=== PATIENT | female | born 1945 | race African-American/Black ===

== ENCOUNTER 2017-07-08 17:05 | Inpatient (IN) | payer MEDICARE, BC ==
[2017-07-08 17:47] LABS: #Eosinphils 0.3 thou/uL (0.0-0.7); #Lymphocytes 1.1 thou/uL (1.20-3.40); #Monocytes 0.5 thou/uL (0.11-0.59); #Neutrophils 6.7 thou/uL (1.40-6.50); %Basophils 0.5 % (0.0-1.0); %Eosinophils 2.9 % (0.0-10.0); %Lymphocytes 12.5 % (21.0-51.0); %Monocytes 6.1 % (0.0-10.0); Hematocrit 27.3 % (36.0-47.0); Mean Platelet Volume 6.3 fL (7.4-10.4); Red Blood Cell (RBC) Count 3.26 mill/uL (4.20-5.40); White Blood Cell (WBC) Count 8.6 thou/uL (4.8-10.8)
--- NOTE | 2017-07-08 17:49 | RAD ---
RADIOGRAPH OF CHEST SINGLE VIEW: Date: 07/08/17 INDICATION: Chest pain. FINDINGS: There is no evidence of consolidation, effusion, or pneumothorax. Cardiac silhouette is enlarged. Th ere is mild elevation of right hemidiaphragm. IMPRESSION: 1. Enlarged cardiac silhouette. 2. No focal consolidation. POS: [facility]
[2017-07-08 18:08] LABS: ALT (SGPT) 10 U/L (8-55); AST (SGOT) 14 U/L (5-34); Alkaline Phosphatase 147 U/L (40-150); Anion Gap 16 mmol/L (10-20); BUN (Urea Nitrogen) 54 mg/dL (9.8-20.1); Bilirubin, Total 0.4 mg/dL (0.2-1.2); CK (CPK) 90 U/L (29-168); Calc. Creatinine Clearance 0 mL/min (70-130); Calcium 9.5 mg/dL (7.8-10.44); Carbon Dioxide 21 mmol/L (23-31); Chloride 109 mmol/L (98-107); Estimated GFR-MDRD 12; Globulin 3.8 g/dL (2.4-3.5); Protein, Total 7.3 g/dL (6.0-8.3)
[2017-07-08 18:13] LABS: Troponin I 0.012 ng/mL (< 0.028)
[2017-07-08] MEDS ORDERED: Dextrose 50% Abboject 50 ML SYRINGE ONE (18:14)
[2017-07-08] MEDS ORDERED: hydrALAZINE 20 MG/ML VIAL ONE (19:21)
[2017-07-08 21:40] LABS: Troponin I Less than 0.010 ng/mL (< 0.028)
[2017-07-08 22:08] VITALS: BMI 25.8
[2017-07-08 23:39] LABS: Troponin I Less than 0.010 ng/mL (< 0.028)
[2017-07-09] MEDS ORDERED: Ondansetron HCl/PF 4 MG/2 ML Vial IVP PRN (02:17)
[2017-07-09] MEDS ORDERED: Dextrose 5% in Water 1,000 ML IV PRN (02:17)
[2017-07-09] MEDS ORDERED: Nitroglycerin 0.4 MG TAB (25 Tab Bottle) PO PRN (02:17)
[2017-07-09] MEDS ORDERED: Dextrose 50% Abboject 50 ML SYRINGE SLOW IVP PRN (02:17)
[2017-07-09] MEDS ORDERED: HYDROcodone/Acetaminophen 5/325 mg Tablet PO PRN (02:17)
[2017-07-09] MEDS ORDERED: Acetaminophen 325 MG TAB PO PRN (02:17)
[2017-07-09] MEDS: Sodium Chloride 0.9% 1,000 ML IV SCH ×2 (03:31→21:13)
[2017-07-09 04:28] LABS: Bilirubin Negative (Negative); Blood, Urine Negative (Negative); Glucose, Urine (Dipstick) Negative (Negative); Ketone, Urine Negative (Negative); Nitrite Negative (Negative); Protein, Urine (Dipstick) 300 mg/dL (Neg-Trace); Urobilinogen 0.2 mg/dL (0.2-1.0)
[2017-07-09 04:31] LABS: Bacteria/HPF 1+ HPF (None Seen); Hyaline Casts/LPF 0-3 HYALINE CAST LPF (0-3 Hyaline); Squamous Epithelial 0-3 HPF (0-3)
[2017-07-09 04:52] LABS: RBC/HPF None Seen HPF (0-3)
[2017-07-09] MEDS: Levothyroxine Sodium 100 MCG TAB PO SCH (05:26)
[2017-07-09] MEDS: hydrALAZINE 20 MG/ML VIAL SLOW IVP PRN ×2 (05:30→11:42)
[2017-07-09 05:31] LABS: Anion Gap 14 mmol/L (10-20); BUN (Urea Nitrogen) 51 mg/dL (9.8-20.1); Calc. Creatinine Clearance 14 mL/min (70-130); Calcium 8.6 mg/dL (7.8-10.44); Carbon Dioxide 19 mmol/L (23-31); Chloride 113 mmol/L (98-107); Cholesterol 94 mg/dl (< 200 Desired); Estimated GFR-MDRD 13; LDL Cholesterol, Calculated 56 mg/dL
--- NOTE | 2017-07-09 06:28 | HP ---
CHIEF COMPLAINT: Chest pain. HISTORY OF PRESENT ILLNESS: This is a 71-year-old pleasant lady who was apparently in usual state o f health, had some right-sided chest pain intermittent for the last one day, this happened when the patient was sitting down and watching TV. The patient was concerned and she came into the hospital for further evaluation and treatment. This happened the previous day as well, but resolved by itsel f. Today, it did not resolve. The patient said that it radiated to the right side of the neck as w ell and she thought that she slept wrong and that causes the chest pain, but she was concerned and s he came into the hospital. She denies any nausea, vomiting, abdominal pain, fever, chills, shortnes s of breath. The patient says that the severity of the chest pain was 5/10 in intensity. It was ex acerbated by deep breaths, relieved by nothing. PAST MEDICAL HISTORY: Significant for type 2 diabetes, hypothyroidism, hypertension, asthma, CKD st age 6, history of cerebrovascular accident with some deficits, but the patient is pretty functional. The patient also has GERD and COPD. PAST SURGICAL HISTORY: Significant for right cataract surgery, right ankle surgery, tubal ligation. ALLERGIES: No known drug allergies. MEDICATIONS: Please see MAR. FAMILY HISTORY: Father with type 2 diabetes. Mother with lung cancer, and sister with type 2 diabe yaritza. SOCIAL HISTORY: Denies any tobacco, alcohol, or drug use. REVIEW OF SYSTEMS: Significant for chest pain, otherwise no fever, no chills, no headache, no appet ite, disease. No cough, no diarrhea, dysuria or polyuria. No memory or mood changes. No nec k pain. PHYSICAL EXAMINATION: VITAL SIGNS: The patient's blood pressure right now is 148/70, pulse is 77, respirations 18, and sa tting 99% on 2 liters. GENERAL: The patient is lying in bed, no apparent distress. HEENT: Atraumatic, normocephalic. Pupils equally round, react to light. Extraocular movements int act. Mucous membranes moist. NECK: No JVD. CHEST: Breath sounds heard. No rales or rhonchi. HEART: S1, S2. No murmurs or gallops. ABDOMEN: Soft. EXTREMITIES: No cyanosis, clubbing, or edema. Distal pulses present. NEUROLOGICAL: Alert, awake, oriented. No cranial deficits. No sensorimotor deficits. LABORATORY DATA: EKG normal sinus rhythm. Chest x-ray negative. WBC count is 8.6, hemoglobin is 8 .7, potassium is 4.1, creatinine is 4.43. Troponin is negative x2. ASSESSMENT AND PLAN: 1. Chest pain, rule out acute coronary syndrome, most probably chest wall pain. Troponins are nega tive so far. Because of the comorbid, we will do echocardiogram and stress test. We will follow e stress test and get Cardiology on board if needed. Meanwhile, we will continue aspirin and check cholesterol. 2. Acute renal failure on chronic kidney disease. Dr. Diop has been following the patient. We eduardo l consult him. Episode of hypoglycemia. We will try to optimize the glucose control, this hospital stay. The patient takes 20 of Levemir in the morning and 15 in the night. 3. Hypothyroidism. We will continue with thyroid medication. 4. Hypertension. We will continue home medications. 5. Gastroesophageal reflux disease, stable. 6. History of cerebrovascular accident, stable. I do SCDs for deep venous thrombosis prophylaxis. I will work with consultants in further caring for the patient.
[2017-07-09] MEDS: Mometasone/Formoterol 120 PUFF INHALER INH SCH ×2 (06:53→18:47)
[2017-07-09] MEDS: Amlodipine 10 MG TAB PO SCH (09:12)
[2017-07-09] MEDS: hydrALAZINE 25 MG TAB PO SCH ×4 (09:13→21:14)
--- NOTE | 2017-07-09 13:23 | PDOC.PN ---
- Subjective Encounter Start Date: 07/09/17 Encounter Start Time: 07:20 Pt seen for followup re: chest pain. Reports on and off R sided chest pain. Denies nausea or vomiting. - Objective MAR Reviewed: Yes Vital Signs & Weight: Vital Signs (12 hours) Temp Pulse Resp BP BP BP Pulse Ox 07/09/17 11:42 80 190/84 H 07/09/17 11:38 98.7 F 80 18 190/84 H 98 07/09/17 10:03 98.9 F 75 19 97 07/09/17 09:13 75 07/09/17 09:12 75 179/84 H 07/09/17 07:30 98.9 F 75 19 179/84 H 97 07/09/17 06:56 97 07/09/17 06:53 71 14 97 07/09/17 05:30 68 181/86 H 07/09/17 05:27 181/86 H 07/09/17 03:56 98.1 F 68 16 98 Weight Weight 155 lb 6.4 oz I&O: 07/08/17 07/09/17 07/10/17 06:59 06:59 06:59 Intake Total 360 Output Total 1050 Balance -690 Result Diagrams: 07/08/17 17:23 07/09/17 04:26 Additional Labs: Accuchecks 07/09/17 07/09/17 07/09/17 11:16 05:50 00:55 POC Glucose 146 H 114 H 176 H EKG Reviewed by me: Yes (Tele: NSR) Phys Exam - Physical Examination Constitutional: NAD HEENT: moist MMs, sclera anicteric, oral pharynx no lesions, 2+ tonsils Neck: no nodes, no JVD, supple, full ROM Respiratory: no wheezing, no rales, no rhonchi, clear to auscultation bilateral Cardiovascular: RRR, no rub Gastrointestinal: soft, non-tender, no distention, positive bowel sounds Musculoskeletal: pulses present Neurological: moves all 4 limbs Lymphatic: no nodes Psychiatric: normal affect, A&O x 3 Skin: no rash, normal turgor, cap refill <2 seconds Dx/Plan (1) Chest pain Code(s): R07.9 - CHEST PAIN, UNSPECIFIED Status: Acute (2) CKD (chronic kidney disease) stage 3, GFR 30-59 ml/min Status: Chronic (3) Hypertension Code(s): I10 - ESSENTIAL (PRIMARY) HYPERTENSION Status: Chronic (4) Hypothyroidism Code(s): E03.9 - HYPOTHYROIDISM, UNSPECIFIED Status: Chronic (5) Type 2 diabetes mellitus Status: Chronic - Plan DVT proph w/SCDs * . Await stress test. Continue accuchecks, insulin sliding scale. Monitor vital signs, titrate antihypertensives as needed. CKD stable. Review of Systems - Review of Systems Constitutional: negative: Fever, Chills, Sweats, Weakness, Malaise Respiratory: Cough, SOB with Excertion. negative: Dry, Shortness of Breath, Hemoptysis, Pleuritic Pain, Sputum, Wheezing Cardiovascular: negative: Chest Pain, Palpitations, Orthopnea, Paroxysmal Noc. Dyspnea, Edema, Light Headedness Gastrointestinal: negative: Nausea, Vomiting, Abdominal Pain, Diarrhea, Constipation, Melena, Hematochezia Genitourinary: negative: Dysuria, Frequency, Incontinence, Hematuria, Retention - Medications/Allergies Allergies/Adverse Reactions: Allergies Allergy/AdvReac Type Severity Reaction Status Date / Time No Known Allergies Allergy Verified 09/25/15 22:17 Medications: Current Medications Acetaminophen (Tylenol) 650 mg PO Q4H PRN PRN Reason: Headache/Fever or Pain Hydrocodone Bitart/Acetaminophen ([place] 5/325) 1 tab PO Q4H PRN PRN Reason: Moderate Pain (4-6) Amlodipine Besylate (Norvasc) 10 mg PO DAILY [facility] Last Admin: 07/09/17 09:12 Dose: 10 mg Aspirin (Aspirin) 325 mg PO QAM-[facility] Atorvastatin Calcium (Lipitor) 80 mg PO DAILY [facility] Carvedilol (Coreg) 25 mg PO BID-[facility] Dextrose/Water (Dextrose 50%) 25 gm SLOW IVP PRN PRN PRN Reason: Hypoglycemia Furosemide (Lasix) 20 mg PO BID [facility] Glucagon (Glucagon) 1 mg IM PRN PRN PRN Reason: Hypoglycemia Hydralazine HCl (Apresoline) 50 mg PO QID [facility] Last Admin: 07/09/17 09:13 Dose: 50 mg Hydralazine HCl (Apresoline) 10 mg SLOW IVP Q4H PRN PRN Reason: Systolic BP > 180 Last Admin: 07/09/17 11:42 Dose: 10 mg Dextrose/Water (D5w) 1,000 mls @ 0 mls/hr IV .Q0M PRN; As Directed PRN Reason: Hypoglycemia Insulin Detemir 10 units/ (Miscellaneous Medication) 0.1 mls @ 0 mls/hr SC QAM- WM [facility] Insulin Detemir 10 units/ (Miscellaneous Medication) 0.1 mls @ 0 mls/hr SC [facility] Sodium Chloride (Normal Saline 0.9%) 1,000 mls @ 65 mls/hr IV .[id number] [facility] Stop: 07/10/17 02:31 Last Admin: 07/09/17 03:31 Dose: 1,000 mls Insulin Human Lispro (Humalog) 0 units SC .MODERATE SLIDING SC PRN PRN Reason: Moderate Correctional Scale Levothyroxine Sodium (Synthroid) 100 mcg PO 0600 [facility] Last Admin: 07/09/17 05:26 Dose: 100 mcg Mometasone Furoate/Formoterol Fumar (Dulera 200 Mcg/5 Mcg Inhaler) 1 puff INH BID-RT [facility] Last Admin: 07/09/17 06:53 Dose: 1 puff Nitroglycerin (Nitrostat) 0.4 mg PO Q5MIN PRN PRN Reason: Chest Pain Ondansetron HCl (Zofran) 4 mg IVP Q6H PRN PRN Reason: Nausea/Vomiting Pantoprazole Sodium (Protonix) 40 mg PO DAILY [facility] Last Admin: 07/09/17 09:13 Dose: 40 mg Potassium Chloride (Klor-Con 10) 10 meq PO QA-[facility] Sodium Chloride (Flush - Normal Saline) 10 ml IVF PRN PRN PRN Reason: Saline Flush Last Admin: 07/09/17 11:43 Dose: 10 ml
[2017-07-09] MEDS: Atorvastatin Calcium 40 MG TAB PO SCH (14:50)
[2017-07-09] MEDS: Aspirin 325 MG TAB PO SCH (14:50)
[2017-07-09] MEDS: Carvedilol 25 MG TAB PO SCH ×2 (14:50→17:21)
[2017-07-09] MEDS: Potassium Chloride 10 MEQ TAB PO SCH (14:51)
[2017-07-09] MEDS: Furosemide 20 MG TAB PO SCH ×2 (14:51→21:14)
[2017-07-09] MEDS: Insulin Detemir 100 UNITS/ML 10 UNITS in Pre-Filled Syringe 1 EACH SC SCH ×2 (14:52→21:46)
--- NOTE | 2017-07-09 15:59 | NM ---
NUCLEAR MEDICINE CARDIAC STRESS ONLY WITH EF AND WALL MOTION: HISTORY: A 71-year-old female with chest pain. History of stroke, asthma, COPD, hypertension, diabetes, and dyslipidemia. LexiScan sestamibi study is performed. Multiple SPECT images in the short axis, vertical long axis, and horizontal long axis were performed with stress only. No evidence for infarct or ischemia. LHR 0.22. EDV 115 mL. EF is 64%. MYOCARDIAL PERFUSION WALL MOTION: Wall motion is normal. IMPRESSION: Unremarkable stress-only cardiac SPECT with ejection fraction and wall motion. POS: [facility]
[2017-07-09] MEDS ORDERED: hydrALAZINE 25 MG TAB PO SCH (16:00)
[2017-07-09] MEDS ORDERED: Regadenoson 0.4 MG/5 ML SYRINGE ONE (16:51)
[2017-07-09] MEDS: HumaLOG 300 UNITS/3 ML VIAL SC PRN (17:21)
--- NOTE | 2017-07-10 00:39 | CON ---
DATE OF CONSULTATION: 07/09/2017 CONSULTING PHYSICIAN: REASON FOR CONSULTATION: Acute kidney injury on chronic kidney disease. REASON FOR ADMISSION: Chest pain. HISTORY OF PRESENT ILLNESS: A 71-year-old female with history of CKD, type 2 diabetes, cerebrovascular accident, came to the hospital with above complaints. Nephrology was consulted for acute kidney injury. The patient does follow with Dr. Diop for CKD and was found to have elevated creatinine. No fever or chills. No nausea or vomiting. The patient is having chest pain which is better. She is having cardiac evaluation. PAST MEDICAL HISTORY: Positive for type 2 diabetes, hypothyroidism, hypertension, asthma, CKD, CVA, GERD, COPD. PAST SURGICAL HISTORY: Right cataract surgery, right ankle surgery, tubal ligation. HOME MEDICATIONS: List include Levemir, levalbuterol, Symbicort, Catapres, furosemide, potassium chloride, Norvasc, Synthroid, Coreg, aspirin, hydralazine , omeprazole, atorvastatin. ALLERGIES: No known drug allergies. SOCIAL HISTORY: No smoking, alcohol or illicit drug abuse. FAMILY HISTORY: No history of any kidney disease. REVIEW OF SYSTEMS: The following complete review of systems was negative, unless otherwise mentioned in the HPI or below: Constitutional: Weight loss or gain, ability to conduct usual activities. Skin: Rash, itching. Eyes: Double vision, pain. ENT/Mouth: Nose bleeding, neck stiffness, pain, tenderness. Cardiovascular: Palpitations, dyspnea on exertion, orthopnea. Respiratory: Shortness of breath, wheezing, cough, hemoptysis, fever or night sweats. Gastrointestinal: Poor appetite, abdominal pain, heartburn, nausea, vomiting, constipation, or diarrhea. Genitourinary: Urgency, frequency, dysuria, nocturia. Musculoskeletal: Pain, swelling. Neurologic/Psychiatric: Anxiety, depression. Allergy/Immunologic: Skin rash, bleeding tendency. PHYSICAL EXAMINATION: GENERAL: This is a well-built female, in no apparent distress. VITAL SIGNS: Temperature 98.1, pulse 82, respiratory rate 18, blood pressure 147/69. HEENT: Atraumatic, normocephalic. Oral mucosa is moist. NECK: Supple, no masses. CARDIOVASCULAR: S1, S2 heard. Rate and rhythm regular. RESPIRATORY: Clear. GASTROINTESTINAL: Abdomen is soft. MUSCULOSKELETAL: No tenderness. No edema. DERMATOLOGIC: No skin rash. NEUROLOGIC: Alert, awake. PSYCHIATRIC: Mood and affect normal. LABORATORY DATA: Hemoglobin is 8.7, potassium is 3.8, BUN is 51, creatinine is 4.1. ASSESSMENT AND PLAN: 1. Acute kidney injury on chronic kidney disease, no acute indication for dialysis. Agree with hydration as tolerated. Avoid nephrotoxins. 2. Acidosis. Continue hydration. 3. Azotemia. 4. Anemia, rule out bleed. We will give a dose of Epogen. Check iron studies in the morning. 5. Edema. 6. Hypertension, Pt reports that BP is controlled at home Plan is to continue hydration, avoid nephrotoxins. Renally dose all the medicines. We will follow. Thank you for the consultation. CRISTY
[2017-07-10] MEDS: hydrALAZINE 20 MG/ML VIAL SLOW IVP PRN (04:21)
[2017-07-10] MEDS: Levothyroxine Sodium 100 MCG TAB PO SCH (05:10)
[2017-07-10] MEDS: Mometasone/Formoterol 120 PUFF INHALER INH SCH ×2 (07:20→20:07)
[2017-07-10] MEDS: Potassium Chloride 10 MEQ TAB PO SCH (08:16)
[2017-07-10] MEDS: Aspirin 325 MG TAB PO SCH (08:16)
[2017-07-10] MEDS: Furosemide 20 MG TAB PO SCH ×2 (08:17→20:18)
[2017-07-10] MEDS: Amlodipine 10 MG TAB PO SCH (08:17)
[2017-07-10] MEDS: Carvedilol 25 MG TAB PO SCH ×2 (08:17→16:36)
[2017-07-10] MEDS: Atorvastatin Calcium 40 MG TAB PO SCH (08:17)
[2017-07-10] MEDS: hydrALAZINE 25 MG TAB PO SCH ×4 (08:17→20:18)
[2017-07-10] MEDS: Insulin Detemir 100 UNITS/ML 10 UNITS in Pre-Filled Syringe 1 EACH SC SCH ×2 (08:21→20:23)
[2017-07-10 09:00] LABS: Anion Gap 16 mmol/L (10-20); BUN (Urea Nitrogen) 53 mg/dL (9.8-20.1); Calc. Creatinine Clearance 13 mL/min (70-130); Calcium 9.2 mg/dL (7.8-10.44); Carbon Dioxide 18 mmol/L (23-31); Chloride 112 mmol/L (98-107); Estimated GFR-MDRD 12
[2017-07-10] MEDS ORDERED: cloNIDine 0.1 MG TAB PO PRN (09:45)
--- NOTE | 2017-07-10 11:13 | PDOC.PN ---
- Subjective Encounter Start Date: 07/10/17 Encounter Start Time: 08:00 Pt seen for followup re: hypertensive emergency. Reports occasional chest pain , no nausea or vomiting. No fevers or chills. - Objective MAR Reviewed: Yes Vital Signs & Weight: Vital Signs (12 hours) Temp Pulse Resp BP BP Pulse Ox 07/10/17 08:17 83 183/79 H 07/10/17 08:00 99.1 F 83 18 96 07/10/17 07:36 99.1 F 83 18 96 07/10/17 07:22 99 07/10/17 07:20 71 16 99 07/10/17 05:11 70 160/75 H 07/10/17 04:21 76 196/86 H 07/10/17 04:00 99.3 F 76 18 196/86 H 97 07/10/17 01:05 99 07/10/17 00:00 99.1 F 78 18 171/81 H 98 Weight Weight 155 lb 6.4 oz I&O: 07/09/17 07/10/17 07/11/17 06:59 06:59 06:59 Intake Total 360 2080 Output Total 1050 1360 Balance -690 720 Result Diagrams: 07/08/17 17:23 07/10/17 08:29 Additional Labs: Accuchecks 07/10/17 07/10/17 07/09/17 05:38 02:33 21:13 POC Glucose 210 H 139 H 140 H 07/09/17 07/09/17 07/09/17 20:21 16:00 11:16 POC Glucose 158 H 328 H 146 H EKG Reviewed by me: Yes (Tele: NSR) Phys Exam - Physical Examination Constitutional: NAD HEENT: moist MMs, sclera anicteric Neck: supple Respiratory: clear to auscultation bilateral Cardiovascular: RRR Gastrointestinal: soft, non-tender Musculoskeletal: pulses present Neurological: moves all 4 limbs Psychiatric: normal affect Skin: no rash Dx/Plan (1) Hypertensive urgency Code(s): I16.0 - HYPERTENSIVE URGENCY Status: Acute (2) Chest pain Code(s): R07.9 - CHEST PAIN, UNSPECIFIED Status: Acute (3) CKD (chronic kidney disease) stage 3, GFR 30-59 ml/min Status: Chronic (4) Hypertension Code(s): I10 - ESSENTIAL (PRIMARY) HYPERTENSION Status: Chronic (5) Hypothyroidism Code(s): E03.9 - HYPOTHYROIDISM, UNSPECIFIED Status: Chronic (6) Type 2 diabetes mellitus Status: Chronic (7) Accelerated hypertension Code(s): I10 - ESSENTIAL (PRIMARY) HYPERTENSION Status: Acute - Plan * . Increase hydralazine to 75 mg QID PO. Add clinidien (home medication). Monitor vital signs, titrate antihypertensives as needed. d-dimer elevated, check VQ (can be done tomorrow since pt had nuclear stress test yesterday. Follow creatinine, lytes. Review of Systems - Review of Systems Respiratory: negative: Cough, Dry, Shortness of Breath, Hemoptysis, SOB with Excertion, Pleuritic Pain, Sputum, Wheezing Cardiovascular: Chest Pain. negative: Palpitations, Orthopnea, Paroxysmal Noc. Dyspnea, Edema, Light Headedness Gastrointestinal: negative: Nausea, Vomiting, Abdominal Pain, Diarrhea, Constipation, Melena, Hematochezia - Medications/Allergies Allergies/Adverse Reactions: Allergies Allergy/AdvReac Type Severity Reaction Status Date / Time No Known Allergies Allergy Verified 09/25/15 22:17 Medications: Current Medications Acetaminophen (Tylenol) 650 mg PO Q4H PRN PRN Reason: Headache/Fever or Pain Hydrocodone Bitart/Acetaminophen ([place] 5/325) 1 tab PO Q4H PRN PRN Reason: Moderate Pain (4-6) Amlodipine Besylate (Norvasc) 10 mg PO DAILY [facility] Aspirin (Aspirin) 325 mg PO QAM-[facility] Last Admin: 07/10/17 08:16 Dose: 325 mg Atorvastatin Calcium (Lipitor) 80 mg PO DAILY [facility] Last Admin: 07/10/17 08:17 Dose: 80 mg [facility] ([facility]) [facility] Last Admin: 07/10/17 08:17 Dose: 25 mg Clonidine (Catapres) 0.1 mg PO Q8H [facility] Clonidine (Catapres) 0.1 mg PO Q4H PRN PRN Reason: SBP Greater Than 170 Dextrose/Water (Dextrose 50%) 25 gm SLOW IVP PRN PRN PRN Reason: Hypoglycemia Furosemide (Lasix) 20 mg PO BID [facility] Last Admin: 07/10/17 08:17 Dose: 20 mg Glucagon (Glucagon) 1 mg IM PRN PRN PRN Reason: Hypoglycemia Hydralazine HCl (Apresoline) 10 mg SLOW IVP Q4H PRN PRN Reason: Systolic BP > 180 Last Admin: 07/10/17 04:21 Dose: 10 mg Hydralazine HCl (Apresoline) 75 mg PO QID [facility] Dextrose/Water (D5w) 1,000 mls @ 0 mls/hr IV .Q0M PRN; As Directed PRN Reason: Hypoglycemia Insulin Detemir 10 units/ (Miscellaneous Medication) 0.1 mls @ 0 mls/hr SC QAM- [facility] Last Admin: 07/10/17 08:21 Dose: 0.1 mls Insulin Detemir 10 units/ (Miscellaneous Medication) 0.1 mls @ 0 mls/hr SC [facility] Last Admin: 07/09/17 21:46 Dose: Not Given Insulin Human Lispro (Humalog) 0 units SC .MODERATE SLIDING SC PRN PRN Reason: Moderate Correctional Scale Last Admin: 07/09/17 17:21 Dose: 8 unit Levothyroxine Sodium (Synthroid) 100 mcg PO 0600 [facility] Last Admin: 07/10/17 05:10 Dose: 100 mcg Mometasone Furoate/Formoterol Fumar (Dulera 200 Mcg/5 Mcg Inhaler) 1 puff INH BID-RT [facility] Last Admin: 07/10/17 07:20 Dose: 1 puff Nitroglycerin (Nitrostat) 0.4 mg PO Q5MIN PRN PRN Reason: Chest Pain Ondansetron HCl (Zofran) 4 mg IVP Q6H PRN PRN Reason: Nausea/Vomiting Pantoprazole Sodium (Protonix) 40 mg PO DAILY [facility] Last Admin: 07/10/17 08:17 Dose: 40 mg Potassium Chloride (Klor-Con 10) 10 meq PO QA-[facility] Last Admin: 07/10/17 08:16 Dose: 10 meq Sodium Chloride (Flush - Normal Saline) 10 ml IVF PRN PRN PRN Reason: Saline Flush Last Admin: 07/09/17 11:43 Dose: 10 ml
[2017-07-10] MEDS: cloNIDine 0.1 MG TAB PO SCH ×2 (11:50→17:58)
[2017-07-10] MEDS: HumaLOG 300 UNITS/3 ML VIAL SC PRN (12:19)
--- NOTE | 2017-07-10 16:53 | PRG ---
DATE OF SERVICE: 07/10/2017 SUBJECTIVE: Patient was seen and examined at bedside and overnight events noted. Patient denies an y shortness of breath or chest pain or palpitation. No history of nausea or vomiting or diarrhea or fever or chills or cramps. OBJECTIVE: GENERAL: This is a well-built female in no apparent distress. VITAL SIGNS: Temperature 98.6, pulse 77, respiratory rate 18, blood pressure 183/79. HEENT: Atraumatic, normocephalic. Oral mucosa is moist. NECK: Supple. CARDIOVASCULAR: S1 and S2 heard, rate and rhythm regular. RESPIRATORY: Clear to auscultation. GASTROINTESTINAL: Abdomen is soft. MUSCULOSKELETAL: No tenderness, no edema. DERMATOLOGIC: No skin rash. NEUROLOGIC: Alert and awake and oriented X3. No focal neurologic deficits. Moving all the extremi ties. PSYCHIATRIC: Mood and affect normal. LABORATORY DATA: Potassium 5.0, BUN is 53, creatinine is 4.4. ASSESSMENT AND PLAN: 1. Acute kidney injury on chronic kidney disease, most likely cardiorenal syndrome. Agree with Las ix for now, currently on Lasix 20 p.o. b.i.d. at his home dose. 2. Cardiorenal syndrome as above. 3. Azotemia. 4. Anemia. 5. Edema, controlled. 6. Hypertension. Agree with medication, currently on Lasix. We will monitor renal function. No acute indication for dialysis. Needs a close followup as an out patient.
[2017-07-10] MEDS ORDERED: Amlodipine 10 MG TAB PO SCH (21:00)
[2017-07-11] MEDS: cloNIDine 0.1 MG TAB PO SCH ×3 (01:33→17:29)
[2017-07-11] MEDS: Levothyroxine Sodium 100 MCG TAB PO SCH (05:51)
[2017-07-11] MEDS: Mometasone/Formoterol 120 PUFF INHALER INH SCH ×2 (06:45→19:30)
[2017-07-11] MEDS: Furosemide 20 MG TAB PO SCH (08:32)
[2017-07-11] MEDS: Aspirin 325 MG TAB PO SCH (08:32)
[2017-07-11] MEDS: Atorvastatin Calcium 40 MG TAB PO SCH (08:32)
[2017-07-11] MEDS: hydrALAZINE 25 MG TAB PO SCH ×4 (08:32→21:28)
[2017-07-11] MEDS: Potassium Chloride 10 MEQ TAB PO SCH (08:32)
[2017-07-11] MEDS: Carvedilol 25 MG TAB PO SCH ×2 (08:32→17:29)
[2017-07-11] MEDS: Amlodipine 10 MG TAB PO SCH (08:33)
[2017-07-11] MEDS: Insulin Detemir 100 UNITS/ML 10 UNITS in Pre-Filled Syringe 1 EACH SC SCH ×2 (08:34→21:28)
--- NOTE | 2017-07-11 10:56 | PDOC.PN ---
- Subjective Encounter Start Date: 07/11/17 Encounter Start Time: 08:45 Subjective: no chest pain or palp - Objective MAR Reviewed: Yes Vital Signs & Weight: Vital Signs (12 hours) Temp Pulse Resp BP BP Pulse Ox 07/11/17 08:00 98.8 F 85 20 183/84 H 98 07/11/17 06:45 71 18 99 07/11/17 04:35 98.8 F 72 16 154/72 H 95 07/11/17 03:11 99 07/11/17 01:33 161/74 H 07/10/17 23:40 74 16 162/74 H 96 Weight Weight 158 lb 14.4 oz I&O: 07/10/17 07/11/17 07/12/17 06:59 06:59 06:59 Intake Total 2080 1950 Output Total 1360 1750 Balance 720 200 Result Diagrams: 07/08/17 17:23 07/10/17 08:29 Additional Labs: Accuchecks 07/11/17 07/11/17 07/10/17 05:49 01:32 20:17 POC Glucose 154 H 169 H 198 H 07/10/17 07/10/17 15:59 11:03 POC Glucose 156 H 231 H Phys Exam - Physical Examination HEENT: PERRLA, moist MMs Neck: no JVD, supple Respiratory: no wheezing, no rales Cardiovascular: RRR, no significant murmur Gastrointestinal: soft, non-tender, positive bowel sounds Musculoskeletal: no edema, pulses present Neurological: non-focal, moves all 4 limbs Psychiatric: A&O x 3 Dx/Plan (1) Metabolic acidosis Code(s): E87.2 - ACIDOSIS Status: Acute (2) Anemia of renal disease Code(s): D63.1 - ANEMIA IN CHRONIC KIDNEY DISEASE Status: Chronic (3) Chest pain Code(s): R07.9 - CHEST PAIN, UNSPECIFIED Status: Chronic Qualifiers: Chest pain type: unspecified Qualified Code(s): R07.9 - Chest pain, unspecified (4) Hypertensive urgency Code(s): I16.0 - HYPERTENSIVE URGENCY Status: Acute (5) Acute worsening of stage 4 chronic kidney disease Code(s): N28.9 - DISORDER OF KIDNEY AND URETER, UNSPECIFIED; N18.4 - CHRONIC KIDNEY DISEASE, STAGE 4 (SEVERE) Status: Chronic (6) Hypertension Code(s): I10 - ESSENTIAL (PRIMARY) HYPERTENSION Status: Chronic Qualifiers: Hypertension type: essential hypertension Qualified Code(s): I10 - Essential (primary) hypertension (7) Hypothyroidism Code(s): E03.9 - HYPOTHYROIDISM, UNSPECIFIED Status: Chronic Qualifiers: Hypothyroidism type: unspecified Qualified Code(s): E03.9 - Hypothyroidism , unspecified (8) Type 2 diabetes mellitus Status: Chronic Qualifiers: Diabetes mellitus complication status: with kidney complications Diabetes mellitus complication detail: with chronic kidney disease Diabetes mellitus terminal clerk insulin use: with [facility] use Chronic kidney disease stage: stage 4 (severe) Qualified Code(s): E11.22 - Type 2 diabetes mellitus with diabetic chronic kidney disease; N18.4 - Chronic kidney disease, stage 4 (severe); N18.4 - Chronic kidney disease, stage 4 (severe); N18.4 - Chronic kidney disease, stage 4 (severe); N18.4 - Chronic kidney disease, stage 4 (severe); 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 Review of Systems - Medications/Allergies Allergies/Adverse Reactions: Allergies Allergy/AdvReac Type Severity Reaction Status Date / Time No Known Allergies Allergy Verified 09/25/15 22:17 Medications: Current Medications Acetaminophen (Tylenol) 650 mg PO Q4H PRN PRN Reason: Headache/Fever or Pain Hydrocodone Bitart/Acetaminophen ([place] 5/325) 1 tab PO Q4H PRN PRN Reason: Moderate Pain (4-6) Amlodipine Besylate (Norvasc) 10 mg PO DAILY [facility] Last Admin: 07/11/17 08:33 Dose: 10 mg Aspirin (Aspirin) 325 mg PO QA-[facility] Last Admin: 07/11/17 08:32 Dose: 325 mg Atorvastatin Calcium (Lipitor) 80 mg PO DAILY [facility] Last Admin: 07/11/17 08:32 Dose: 80 mg Carvedilol (Coreg) 25 mg PO BID-[facility] Last Admin: 07/11/17 08:32 Dose: 25 mg Clonidine (Catapres) 0.1 mg PO Q8H [facility] Last Admin: 07/11/17 01:33 Dose: 0.1 mg Clonidine (Catapres) 0.1 mg PO Q4H PRN PRN Reason: SBP Greater Than 170 Dextrose/Water (Dextrose 50%) 25 gm SLOW IVP PRN PRN PRN Reason: Hypoglycemia Furosemide (Lasix) 20 mg PO BID [facility] Last Admin: 07/11/17 08:32 Dose: 20 mg Glucagon (Glucagon) 1 mg IM PRN PRN PRN Reason: Hypoglycemia Hydralazine HCl (Apresoline) 10 mg SLOW IVP Q4H PRN PRN Reason: Systolic BP > 180 Last Admin: 07/10/17 04:21 Dose: 10 mg Hydralazine HCl (Apresoline) 75 mg PO QID [facility] Last Admin: 07/11/17 08:32 Dose: 75 mg Dextrose/Water (D5w) 1,000 mls @ 0 mls/hr IV .Q0M PRN; As Directed PRN Reason: Hypoglycemia Insulin Detemir 10 units/ (Miscellaneous Medication) 0.1 mls @ 0 mls/hr SC QAM- [facility] Last Admin: 07/11/17 08:34 Dose: 0.1 mls Insulin Detemir 10 units/ (Miscellaneous Medication) 0.1 mls @ 0 mls/hr SC [facility] Last Admin: 07/10/17 20:23 Dose: 0.1 mls Insulin Human Lispro (Humalog) 0 units SC .MODERATE SLIDING SC PRN PRN Reason: Moderate Correctional Scale Last Admin: 07/10/17 12:19 Dose: 4 unit Levothyroxine Sodium (Synthroid) 100 mcg PO 0600 [facility] Last Admin: 07/11/17 05:51 Dose: 100 mcg Mometasone Furoate/Formoterol Fumar (Dulera 200 Mcg/5 Mcg Inhaler) 1 puff INH BID-RT [facility] Last Admin: 07/11/17 06:45 Dose: 1 puff Nitroglycerin (Nitrostat) 0.4 mg PO Q5MIN PRN PRN Reason: Chest Pain Ondansetron HCl (Zofran) 4 mg IVP Q6H PRN PRN Reason: Nausea/Vomiting Pantoprazole Sodium (Protonix) 40 mg PO DAILY [facility] Last Admin: 07/11/17 08:33 Dose: 40 mg Potassium Chloride (Klor-Con 10) 10 meq PO QAM-WM [facility] Last Admin: 07/11/17 08:32 Dose: 10 meq Sodium Chloride (Flush - Normal Saline) 10 ml IVF PRN PRN PRN Reason: Saline Flush Last Admin: 07/11/17 08:35 Dose: 10 ml
--- NOTE | 2017-07-11 11:02 | RAD ---
TWO VIEWS OF THE CHEST: COMPARISON: 03/03/16. HISTORY: Shortness of breath. VQ scan. FINDINGS: Two views of the chest show normal sized cardiomediastinal silhouette. There is no evidence of conso lidation, mass, or pleural effusion. The bones are unremarkable. IMPRESSION: No evidence of acute cardiopulmonary disease. POS: [facility]
--- NOTE | 2017-07-11 11:38 | NM ---
VQ SCAN: HISTORY: Shortness of breath. COMPARISON: Chest x-ray 07/11/17. TECHNIQUE: A VQ scan was performed in standard fashion. Ventilation images were obtained using 12 mCi of Xenon 133. Perfusion images were obtained using 6.5 mCi of Technetium 99m MAA. FINDINGS: VENTILATION: Breath hold, equilibrium, and washout phases are normal. No air trapping is seen. No ventilatory d efects are seen. PERFUSION: NO small, medium, or large perfusion defects are seen. IMPRESSION: No evidence of pulmonary thromboembolism. POS: [facility]
[2017-07-11] MEDS: HumaLOG 300 UNITS/3 ML VIAL SC PRN (12:31)
--- NOTE | 2017-07-11 14:33 | PRG ---
DATE OF SERVICE: 07/11/2017 SUBJECTIVE: Patient was seen and examined at bedside and overnight events noted. Patient denies an y shortness of breath or chest pain or palpitation. No history of nausea or vomiting or diarrhea or fever or chills or cramps. OBJECTIVE: GENERAL: This is a well-built female in no apparent distress. VITAL SIGNS: Temperature 95, pulse 80, respiratory rate 18 and blood pressure 177/80. HEENT: Atraumatic and normocephalic. Oral mucosa is moist. NECK: Supple. CARDIOVASCULAR: S1 and S2 heard. Rate and rhythm regular. RESPIRATORY: Clear to auscultation. GASTROINTESTINAL: Abdomen is soft. MUSCULOSKELETAL: No tenderness. No edema. DERMATOLOGIC: No skin rash. NEUROLOGIC: Alert, awake and oriented x3. No focal neurologic deficits. Moving all the extremitie s. PSYCHIATRIC: Mood and affect normal. LABORATORY DATA: Not done today. ASSESSMENT AND PLAN: 1. Acute kidney injury on chronic kidney disease stage 4 secondary to cardiorenal syndrome, better. Creatinine was creeping up. I will make Lasix to 20 mg p.o. daily and follow up with Dr. Diop in a week. 2. Cardiorenal syndrome. We will reduce Lasix dose as she is feeling better. 3. Azotemia. 4. Anemia. 5. Edema. 6. Hypertension. Will titrate her medications and close follow up as outpatient. We will make Las ix 20 p.o. daily and monitor potassium and renal function closely.
[2017-07-12] MEDS: cloNIDine 0.1 MG TAB PO SCH ×2 (01:04→10:14)
[2017-07-12] MEDS: Levothyroxine Sodium 100 MCG TAB PO SCH (06:32)
[2017-07-12] MEDS: Mometasone/Formoterol 120 PUFF INHALER INH SCH (06:57)
[2017-07-12] MEDS ORDERED: Furosemide 20 MG TAB PO SCH (09:00)
[2017-07-12] MEDS: Carvedilol 25 MG TAB PO SCH (10:02)
[2017-07-12] MEDS: Potassium Chloride 10 MEQ TAB PO SCH (10:02)
[2017-07-12] MEDS: Aspirin 325 MG TAB PO SCH (10:02)
[2017-07-12] MEDS: hydrALAZINE 25 MG TAB PO SCH ×2 (10:03→13:41)
[2017-07-12] MEDS: Atorvastatin Calcium 40 MG TAB PO SCH (10:04)
[2017-07-12] MEDS: Amlodipine 10 MG TAB PO SCH (10:04)
--- NOTE | 2017-07-12 10:13 | PDOC.PN ---
- Subjective Encounter Start Date: 07/12/17 Encounter Start Time: 07:15 Subjective: no sob or chest pain -: feels better - Objective MAR Reviewed: Yes Vital Signs & Weight: Vital Signs (12 hours) Temp Pulse Resp BP BP Pulse Ox 07/12/17 10:04 74 07/12/17 10:03 83 182/83 H 07/12/17 04:00 99.3 F 74 18 169/74 H 97 07/12/17 03:28 97 07/12/17 01:04 161/73 H 07/12/17 00:00 98.7 F 74 20 161/73 H 96 Weight Weight 154 lb 8 oz I&O: 07/11/17 07/12/17 07/13/17 06:59 06:59 06:59 Intake Total 1950 2060 Output Total 1750 1700 Balance 200 360 Result Diagrams: 07/08/17 17:23 07/10/17 08:29 Additional Labs: Accuchecks 07/12/17 07/11/17 07/11/17 05:39 20:19 16:35 POC Glucose 104 148 H 104 07/11/17 11:15 POC Glucose 252 H Phys Exam - Physical Examination HEENT: PERRLA, moist MMs Neck: no JVD, supple Respiratory: no wheezing, no rales Cardiovascular: RRR, no significant murmur Gastrointestinal: soft, non-tender, positive bowel sounds Musculoskeletal: no edema, pulses present Neurological: non-focal, moves all 4 limbs Psychiatric: A&O x 3 Dx/Plan (1) Metabolic acidosis Code(s): E87.2 - ACIDOSIS Status: Acute (2) Anemia of renal disease Code(s): D63.1 - ANEMIA IN CHRONIC KIDNEY DISEASE Status: Chronic (3) Chest pain Code(s): R07.9 - CHEST PAIN, UNSPECIFIED Status: Chronic Qualifiers: Chest pain type: unspecified Qualified Code(s): R07.9 - Chest pain, unspecified (4) Hypertensive urgency Code(s): I16.0 - HYPERTENSIVE URGENCY Status: Acute (5) Acute worsening of stage 4 chronic kidney disease Code(s): N28.9 - DISORDER OF KIDNEY AND URETER, UNSPECIFIED; N18.4 - CHRONIC KIDNEY DISEASE, STAGE 4 (SEVERE) Status: Chronic (6) Hypertension Code(s): I10 - ESSENTIAL (PRIMARY) HYPERTENSION Status: Chronic Qualifiers: Hypertension type: essential hypertension Qualified Code(s): I10 - Essential (primary) hypertension (7) Hypothyroidism Code(s): E03.9 - HYPOTHYROIDISM, UNSPECIFIED Status: Chronic Qualifiers: Hypothyroidism type: unspecified Qualified Code(s): E03.9 - Hypothyroidism , unspecified (8) Type 2 diabetes mellitus Status: Chronic Qualifiers: Diabetes mellitus complication status: with kidney complications Diabetes mellitus complication detail: with chronic kidney disease 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 mellitus 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 terminal 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 insulin use: with [facility] use Chronic kidney disease stage: stage 4 (severe) Qualified Code(s): E11.22 - Type 2 diabetes mellitus with diabetic chronic kidney disease; N18.4 - Chronic kidney disease, stage 4 (severe); N18.4 - Chronic kidney disease, stage 4 (severe); N18.4 - Chronic kidney disease, stage 4 (severe); N18.4 - Chronic kidney disease, stage 4 (severe); Z79.4 - long-term (current) use of insulin; 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
[2017-07-12 10:18] VITALS: TEMP 98.4
[2017-07-12 10:32] LABS: Anion Gap 17 mmol/L (10-20); BUN (Urea Nitrogen) 55 mg/dL (9.8-20.1); Calc. Creatinine Clearance 12 mL/min (70-130); Calcium 9.2 mg/dL (7.8-10.44); Carbon Dioxide 18 mmol/L (23-31); Chloride 105 mmol/L (98-107); Estimated GFR-MDRD 11
--- NOTE | 2017-07-12 10:51 | PRG ---
Patient Name: MIRNA MALLOY Date of service: 07/12/2017 Subjective: Patient was seen and examined at bedside and overnight events noted. Patient denies any shortness of breath or chest pain or palpitation. No history of nausea or vomiting or diarrhea or fever or chills or cramps. Objective: General: This is a well-built female in no apparent distress Vital signs: Temperature 98.4, pulse 83, respiratory rate 18, blood pressure 182/83. HEENT: Atraumatic, normocephalic. Oral mucosa is moist. Neck: Supple. Cardiovascular: S1 S2 heard. Rate and rhythm regular. Respiratory: Crackles present. Gastrointestinal: Abdomen is soft. Musculoskeletal: No tenderness. No edema. Dermatologic: No skin rash. Neurologic: Alert and awake and oriented X3. No focal neurologic deficits. Moving all the extremi ties. Psychiatric: Mood and affect normal. LABORATORY DATA: Pending. ASSESSMENT AND PLAN: 1. Acute kidney injury on chronic kidney disease stage 4. Repeat labs today, monitor. 2. Cardiorenal syndrome. 3. Azotemia. 4. Anemia. 5. Edema, controlled on Lasix. 6. Hypertension. Increase hydralazine to 100 mg p.o. q.i.d. 7. Currently on Lasix 20, but seems like she probably need Lasix 20 p.o. b.i.d. Recheck labs today. If stable, okay to discharge home with close outpatient followup with Dr. Diop in 1 week from discharge.
[2017-07-12] MEDS: Insulin Detemir 100 UNITS/ML 10 UNITS in Pre-Filled Syringe 1 EACH SC SCH (12:37)
[2017-07-12] MEDS: HumaLOG 300 UNITS/3 ML VIAL SC PRN (12:38)
[2017-07-12 13:29] VITALS: BP 148/73
--- NOTE | 2017-07-12 23:26 | DIS ---
DATE OF ADMISSION: 07/09/2017 DATE OF DISCHARGE: 07/12/2017 DISCHARGE DISPOSITION: To home. PRIMARY DISCHARGE DIAGNOSES: Acute kidney injury on top of chronic kidney disease stage IV, chest pain which is noncardiac, anemia of chronic renal disease, metabolic acidosis due to acute kidney injury, hypertensive urgency resolving. SECONDARY DISCHARGE DIAGNOSES: Hypothyroidism, diabetes mellitus type 2. PROCEDURES DONE DURING HOSPITALIZATION: The patient has had nuclear stress test done on 07/09/2017 which was unremarkable. Ejection fraction was 64%. Wall motion was normal. She has had a VQ scan done which showed no evidence of PE, no small, medium, or large perfusion defects were seen on it. H\T\H 8.7 and 27 with a platelet count of 312, MCV is 83. Discharge BUN and creatinine is 55 and 4.8. Discharge bicarbonate is 18, total cholesterol 94, triglycerides 77, LDL 56, HDL 23. Troponin x3 is negative. CK-MB 1.9. DISCHARGE MEDICATIONS: Norvasc 10 mg p.o. daily, aspirin 325 mg p.o. daily, atorvastatin 80 mg p.o. daily, Symbicort inhaler 2 puffs twice daily, Coreg 25 mg p.o. twice daily, Lasix 20 mg p.o. twice daily, Levemir 20 units subcu q.a.m. and 15 units subq at bedtime, levothyroxine 100 mcg p.o. daily, omeprazole 20 mg p.o. daily, potassium chloride 10 mEq p.o. daily, clonidine 0.1 mg p.o. three times daily, hydralazine 75 mg p.o. 4 times daily. ALLERGIES: No known drug allergies. INPATIENT CONSULTS: Dr. Daly/Dr. Diop for Nephrology. BRIEF COURSE DURING HOSPITALIZATION: The patient got admitted on the with complaints of chest pain. She was initially placed under observation and had ACS evidence based protocol followed. The patient also was found to have had acute kidney injury on top of her chronic kidney disease stage IV with hypertensive urgency. She was switched to inpatient status. Her medications were optimized during her stay here. Patient's nuclear stress test came back negative for any reversible ischemia. Troponin x3 were negative. In view of elevated D-dimer which likely is due to chronic kidney disease with acute kidney injury, nevertheless she had a VQ scan done which showed no evidence of PE. Her hypertension medications were optimized. Patient needs to have her lab work and follow up with Dr. Diop in the coming week as planned. She is hemodynamically stable, otherwise ambulating and eating well prior to discharge. Please see a [id number] documentation on [facility] for the day of discharge. CRISTY
== END 2017-07-12 13:50 | disposition home or self-care (01) | DRG 683 ==
LOC: ERS 17:05 → 2NO 19:37
PROVIDERS: ADMIT Internal Medicine; ATTEND Internal Medicine
DX: N17.9 Acute kidney failure, unspecified (principal); E87.2 Acidosis; E11.22 Type 2 diabetes mellitus with diabetic chronic kidney disease; E11.649 Type 2 diabetes mellitus with hypoglycemia without coma; I12.9 Hypertensive chronic kidney disease with stage 1 through stage 4 chronic kidney disease, or unspecified chronic kidney disease; N18.4 Chronic kidney disease, stage 4 (severe); J44.9 Chronic obstructive pulmonary disease, unspecified; Z79.4 Long term (current) use of insulin; Z86.73 Personal history of transient ischemic attack (TIA), and cerebral infarction without residual deficits; Z98.41 Cataract extraction status, right eye; Z98.51 Tubal ligation status; E03.9 Hypothyroidism, unspecified; K21.9 Gastro-esophageal reflux disease without esophagitis; D63.1 Anemia in chronic kidney disease; I16.0 Hypertensive urgency
CPT/HCPCS: 36415; 36416; 71010; 71020; 78452; 78582; 80048; 80053; 80061; 81001; 82550; 82553; 82570; 84156; 84484; 85025; 85379; 93005; 93017; 93306; 94664; 94760; 96361; 96374; 96375; A9500; A9540; A9558; J0360; J1815; J2785

== ENCOUNTER 2017-07-26 18:05 | Emergency (ER) | payer BC ==
[2017-07-26 18:38] LABS: #Eosinphils 0.3 thou/uL (0.0-0.7); #Lymphocytes 0.9 thou/uL (1.20-3.40); #Monocytes 0.6 thou/uL (0.11-0.59); #Neutrophils 7.5 thou/uL (1.40-6.50); %Basophils 0.1 % (0.0-1.0); %Eosinophils 3.4 % (0.0-10.0); %Monocytes 6.8 % (0.0-10.0); Mean Platelet Volume 6.1 fL (7.4-10.4); Red Blood Cell (RBC) Count 2.84 mill/uL (4.20-5.40); White Blood Cell (WBC) Count 9.4 thou/uL (4.8-10.8)
[2017-07-26 19:02] LABS: Troponin I 0.015 ng/mL (< 0.028)
[2017-07-26 19:07] LABS: ALT (SGPT) 7 U/L (8-55); AST (SGOT) 13 U/L (5-34); Alkaline Phosphatase 134 U/L (40-150); Anion Gap 15 mmol/L (10-20); BUN (Urea Nitrogen) 65 mg/dL (9.8-20.1); Bilirubin, Total 0.5 mg/dL (0.2-1.2); CK (CPK) 74 U/L (29-168); Calc. Creatinine Clearance 0 mL/min (70-130); Carbon Dioxide 22 mmol/L (23-31); Chloride 103 mmol/L (98-107); Estimated GFR-MDRD 9; Globulin 3.8 g/dL (2.4-3.5); Protein, Total 7.1 g/dL (6.0-8.3)
--- NOTE | 2017-07-26 19:28 | RAD ---
RADIOGRAPH OF CHEST SINGLE VIEW COMPARISON: 07/08/2017 INDICATION: Chest pain. FINDINGS: There is perivascular edema bilaterally. Cardiac silhouette is accentuated by portable technique. T here is no consolidation or effusion. No pneumothorax. IMPRESSION: 1. Mild vascular prominence of each hilar region which may be on the basis of edema. Correlate clini heydi. 2. Prominent cardiac silhouette. POS: [facility]
--- NOTE | 2017-08-31 11:46 | EKG ---
Test Reason : Blood Pressure : / mmHG Vent. Rate : 074 BPM Atrial Rate : 074 BPM P-R Int : 142 ms QRS Dur : 094 ms QT Int : 392 ms P-R-T Axes : 043 -16 062 degrees QTc Int : 435 ms Normal sinus rhythm Possible Left atrial enlargement Left ventricular hypertrophy Nonspecific T wave abnormality Abnormal ECG Confirmed by YUNG DUMONT, OSCAR ([id number]), legal editor SORAIDA ESTRADA ([id number]) on 08/31/2017 11:45:36 AM Referred By: Confirmed By:OSCAR BARRAGAN MD
== END 2017-07-26 20:55 | disposition home or self-care (01) ==
LOC: ERS 18:05
DX: K21.9 Gastro-esophageal reflux disease without esophagitis (principal); E11.9 Type 2 diabetes mellitus without complications; E03.9 Hypothyroidism, unspecified; I10 Essential (primary) hypertension; J45.909 Unspecified asthma, uncomplicated; Z79.899 Other long term (current) drug therapy; Z79.82 Long term (current) use of aspirin; Z79.4 Long term (current) use of insulin
CPT/HCPCS: 71010; 80053; 82550; 82553; 84484; 85025; 93005

== ENCOUNTER 2017-08-12 11:01 | Observation (INO) | payer BC, MEDICARE ==
[2017-08-12 11:48] LABS: #Basophils 0.1 thou/uL (0.0-0.2); #Eosinphils 0.2 thou/uL (0.0-0.7); #Lymphocytes 0.9 thou/uL (1.20-3.40); #Monocytes 0.6 thou/uL (0.11-0.59); #Neutrophils 6.4 thou/uL (1.40-6.50); %Basophils 1.1 % (0.0-1.0); %Eosinophils 2.3 % (0.0-10.0); %Lymphocytes 11.1 % (21.0-51.0); %Monocytes 7.8 % (0.0-10.0); Hematocrit 20.8 % (36.0-47.0); Mean Platelet Volume 6.3 fL (7.4-10.4); Red Blood Cell (RBC) Count 2.45 mill/uL (4.20-5.40); White Blood Cell (WBC) Count 8.2 thou/uL (4.8-10.8)
[2017-08-12 11:56] LABS: PTT 29.3 SEC (22.9-36.1); Prothrombin Time 14.7 SEC (12.0-14.7)
[2017-08-12 12:12] LABS: ALT (SGPT) 8 U/L (8-55); AST (SGOT) 13 U/L (5-34); Alkaline Phosphatase 101 U/L (40-150); Anion Gap 15 mmol/L (10-20); BUN (Urea Nitrogen) 58 mg/dL (9.8-20.1); Bilirubin, Total 0.4 mg/dL (0.2-1.2); Calc. Creatinine Clearance 0 mL/min (70-130); Calcium 8.6 mg/dL (7.8-10.44); Carbon Dioxide 21 mmol/L (23-31); Chloride 104 mmol/L (98-107); Estimated GFR-MDRD 11; Globulin 3.6 g/dL (2.4-3.5); Protein, Total 6.5 g/dL (6.0-8.3)
[2017-08-12] MEDS ORDERED: Loperamide HCl 2 MG CAP PO PRN (14:06)
[2017-08-12] MEDS ORDERED: Artificial Tears 18 DROP/0.9 ML EA EYE PRN (14:06)
[2017-08-12] MEDS ORDERED: HumaLOG 300 UNITS/3 ML VIAL SC PRN ×2 (14:06)
[2017-08-12] MEDS ORDERED: Sodium Chloride 0.65% Nasal 44 ML BOT EA NARE PRN (14:06)
[2017-08-12] MEDS ORDERED: hydrALAZINE 20 MG/ML VIAL SLOW IVP PRN (14:06)
[2017-08-12] MEDS ORDERED: Dextrose 50% Abboject 50 ML SYRINGE SLOW IVP PRN (14:06)
[2017-08-12] MEDS ORDERED: Loratadine 10 MG TAB PO PRN (14:06)
[2017-08-12] MEDS ORDERED: Bisacodyl 10 MG SUPP PR PRN (14:06)
[2017-08-12] MEDS ORDERED: Ondansetron ODT 4 MG TAB PO PRN (14:06)
[2017-08-12] MEDS ORDERED: Furosemide 40 MG/4 ML VIAL SLOW IVP SCH (14:06)
[2017-08-12] MEDS ORDERED: Milk Of Magnesia 30 ML UDCUP PO PRN (14:06)
[2017-08-12] MEDS ORDERED: Mag-Al 1200 mg/1200 mg/30 ML UDCUP PO PRN (14:06)
[2017-08-12] MEDS ORDERED: Ondansetron HCl/PF 4 MG/2 ML Vial IVP PRN (14:06)
[2017-08-12] MEDS ORDERED: Zolpidem Tartrate 5 MG TAB PO PRN (14:06)
[2017-08-12] MEDS ORDERED: Diabetic Tussin 200 MG/10 ML UDCUP PO PRN (14:06)
[2017-08-12] MEDS ORDERED: Dextrose 5% in Water 1,000 ML IV PRN (14:06)
[2017-08-12] MEDS ORDERED: Senokot 8.6 MG TAB PO PRN (14:06)
[2017-08-12] MEDS ORDERED: Eucerin (Mineral Oil/Petrolatum,White) 30 gm Jar TOP PRN (14:06)
[2017-08-12] MEDS ORDERED: Acetaminophen 325 MG TAB PO PRN (14:06)
[2017-08-12] MEDS ORDERED: HYDROcodone/Acetaminophen 5/325 mg Tablet PO PRN (14:06)
[2017-08-12 14:14] LABS: Iron 31 ug/dL (50-170)
[2017-08-12 14:16] VITALS: BMI 24.3
[2017-08-12] MEDS ORDERED: Furosemide 20 MG TAB PO SCH (14:30)
[2017-08-12] MEDS ORDERED: Epoetin (ESRD) 10,000 UNITS/ML VIAL SC SCH (14:30)
--- NOTE | 2017-08-12 14:33 | HP ---
PRIMARY CARE PHYSICIAN: Dr. Edgar Adams. PRIMARY FORENSICS TEAM DIRECTOR: Dr. Diop. REASON FOR ADMISSION: Sent by Dr. Martinez for low hemoglobin. HISTORY OF PRESENT ILLNESS: This is a 71-year-old -[place] female with multiple medical prob lems including hypertension, diabetes type 2, hypothyroidism, dyslipidemia, and chronic kidney diseas e stage 4, who was brought to emergency room for low hemoglobin. Patient's primary care physician referred to Dr. Martinez for low hemoglobin. The patient had routine bl ood test done and the patient had a very low hemoglobin and that is why Dr. Martinez advised her to go to the emergency room for admission. This patient has long history of acid reflux, early satiety and weight loss of 50 pound over the last several months. Patient also has constipation. The patient reports that normally she gets bowel mo vement every week and she is using stool softener and that bowel movement habit has not changed recen tly. She denies any black tarry stool. She denies any hematochezia. She denies any nausea or vomit ing, but she feels full after eating little amount of food. She denies any dysphagia. She denies an y fever or chills. She does have poor appetite because of early satiety and she is also losing weigh t. She had anemia, required blood transfusion last year. At this point, the patient also denies kash ing NSAID. She denies any urinary tract infection symptoms. Patient has stage 4 kidney problem and she is still making urine. The patient reports that she was t aking iron before, but subsequently she was instructed not to take iron. She denies any orthopnea, P ND, or leg swelling. She denies any chest pain, palpitations, and dizziness, but she is feeling over all weak. ALLERGIES: No known drug allergies. CURRENT HOME MEDICATIONS: Coreg 25 mg p.o. twice daily, amlodipine 10 mg p.o. daily, Synthroid 100 m cg p.o. daily, Lipitor 80 mg p.o. at bedtime, Lasix 20 mg p.o. b.i.d., aspirin 325 mg p.o. daily, ome prazole 20 mg p.o. daily, Levemir 20 units in the morning and 10 units at bedtime, Symbicort 1 puff i nhalation b.i.d., and ProAir HFA q.6 hourly p.r.n. PAST MEDICAL HISTORY: Diabetes type 2, hypothyroidism, gastroesophageal reflux disease, hypertension , chronic kidney disease stage 4, history of ischemic CVA with left-sided weakness in 2016, asthma, h istory of Clostridium difficile, and diarrhea. PAST SURGICAL HISTORY: Right cataract surgery, right ankle surgery, and tubal ligation. PAST PSYCHIATRIC HISTORY: Reviewed and negative. SOCIAL HISTORY: The patient lives at home with the family. No history of tobacco, alcohol or illici t drug abuse. FAMILY HISTORY: No strong family history of coronary artery disease or stroke. Diabetes, hypertensi on runs among several family members. Mother had lung cancer. Father had diabetes type 2 and [facility] also has diabetes type 2. EMERGENCY ROOM COURSE: Patient had a type and cross. REVIEW OF SYSTEMS: The following complete review of systems was negative, unless otherwise mentioned in the HPI or below: Constitutional: Weight loss or gain, ability to conduct usual activities. Skin: Rash, itching. Eyes: Double vision, pain. ENT/Mouth: Nose bleeding, neck stiffness, pain, tenderness. Cardiovascular: Palpitations, dyspnea on exertion, orthopnea. Respiratory: Shortness of breath, wheezing, cough, hemoptysis, fever or night sweats. Gastrointestinal: Poor appetite, abdominal pain, heartburn, nausea, vomiting, constipation, or diarrh ea. Genitourinary: Urgency, frequency, dysuria, nocturia. Musculoskeletal: Pain, swelling. Neurologic/Psychiatric: Anxiety, depression. Allergy/Immunologic: Skin rash, bleeding tendency. Please see my HPI for pertinent positives and negatives. All other review of systems reviewed and ne gative except as mentioned in the HPI. PHYSICAL EXAMINATION: VITAL SIGNS: On arrival, blood pressure 131/66, pulse 73, respiratory rate 16, temperature 98.3, sat uration 95% on room air, and weight 65.7 kilograms. GENERAL: Patient is currently alert, oriented, no acute distress. HEENT: Head is normocephalic, atraumatic. Eyes: Pupils round, reactive to light. Extraocular musc le intact. Pallor plus. ENT: Oropharynx within normal limits. Moist mucous membranes. No oral lesions. No pharyngeal eryt collin, no exudate, pallor plus. NECK: No JVD, no thyromegaly, no carotid bruit, no jugular venous distention. LUNGS: Clear to auscultation without any rhonchi or rales. CARDIAC: S1 and S2 regular, soft systolic murmur noted. No gallop, no rub. ABDOMEN: Soft, bowel sounds present, nontender, nondistended. No organomegaly, no mass, no suprapub ic tenderness. BACK: Unremarkable, no CVA tenderness. EXTREMITIES: Upper extremity passive movement of all joints are normal. Lower extremities: No otto a. Good peripheral pulsation. SKIN: No skin rash. HEMATOLOGICAL: No lymphadenopathy. PSYCHIATRIC: Normal affect. NEUROLOGIC: Nonfocal examination. SIGNIFICANT LABORATORY DATA: 1. CBC: WBC 8.2, hemoglobin 6.8, platelet 295. INR 1.1. BMP: Sodium 135, potassium 4.7, chloride 104, carbon dioxide 21, BUN 58, creatinine 4.75, glucose 267, calcium 8.6. 2. LFT: AST 13, ALT 8, alkaline phosphatase 101, albumin 2.9. ASSESSMENT AND PLAN: 1. Symptomatic anemia. The patient is feeling weakness, fatigability and her hemoglobin is 6.8. At this point, we will admit for observation to medical floor and transfused 1 unit of PRBC. After karen t, we will give her Lasix to prevent any fluid overload. 2. Anemia, most likely related with renal disease. This patient already had anemia workup in the [facility]. I will send another time iron, ferritin, and TIBC. We will check stool for guaiac to rule out a ny occult bleeding to rule out gastrointestinal etiology, the patient will need upper and lower endos copy. Patient will be given Procrit 10,000 units subcu one time dose. 3. Early satiety, weight loss, failure to thrive, rule out malignancy. Most likely early satiety is related with diabetic gastroparesis, but underlying pathology needs to be excluded. She also has re flux and she has alarming feature and that is why the patient will need upper and lower endoscopy and we will consult Gastroenterology to do that tomorrow. Tonight, we will prepare for colonoscopy with GoLYTELY. 4. Chronic constipation. We will treat with stool softener and tonight we will treat with GoLYTELY. 5. Chronic kidney disease stage 4-5. This patient has almost approached end-stage renal disease. I spoke with the patient and family member about renal replacement therapy. Patient will follow up [facility] after discharge to discuss about renal replacement therapy options. 6. Diabetes type 2. We will continue Levemir 20 units subcu in the morning and 10 units at bedtime, Humalog insulin as per sliding scale protocol. 7. Asthma. We will continue Dulera 2 puffs inhalation b.i.d., and DuoNebs q.6 hourly p.r.n., curren tly stable. 8. Gastroesophageal reflux disease. We will continue Protonix 40 mg p.o. daily. 9. Hypertension. We will continue hydralazine 50 mg 4 times daily, amlodipine 10 mg p.o. daily, and Coreg 25 mg p.o. b.i.d. 10. Hypothyroidism. We will continue Synthroid 100 mcg p.o. daily and check TSH tomorrow. 11. Dyslipidemia. Continue Lipitor 80 mg p.o. at bedtime. 12. Vitamin D deficiency. The patient will be given vitamin D3 at 1000 units p.o. daily, and calcit riol 0.5 mcg p.o. daily. Secondary hyperparathyroidism of renal origin and we will check phosphorus level tomorrow. If phosphorus is high, then we will consider adding PhosLo versus Renvela upon disch arge. 13. Mild metabolic acidosis, likely due to renal failure. 14. Acute on chronic diastolic heart failure. This patient had already echocardiography in 06/2017. At that time, echo showed diastolic dysfunction. The patient will resume Lasix 20 mg p.o. b.i.d. a long with other antihypertensive medication. 15. Deep venous thrombosis prophylaxis not needed because we are expecting discharge in 24 hours. 16. Gastrointestinal prophylaxis, Protonix 40 mg p.o. daily. CODE STATUS: The patient is FULL CODE. Patient's daughter is surrogate decision maker. Disposition plan based on clinical course, likely within 24-48 hours. Plan of care discussed with stacia marques patient and family member at bedside in the emergency room.
[2017-08-12] MEDS: hydrALAZINE 25 MG TAB PO SCH ×2 (15:57→22:10)
[2017-08-12] MEDS: Carvedilol 25 MG TAB PO SCH (15:58)
[2017-08-12] MEDS: GoLYTELY 4,000 ml Bottle PO SCH (19:45)
[2017-08-12] MEDS: Mometasone/Formoterol 120 PUFF INHALER INH SCH (20:05)
[2017-08-12] MEDS ORDERED: FLU VACC TS2017-18 (>65YR) 0.5 ML SYRINGE IM ONE (21:00)
[2017-08-12] MEDS: Atorvastatin Calcium 40 MG TAB PO SCH (22:10)
[2017-08-12] MEDS: Insulin Detemir 100 UNITS/ML 20 UNITS in Pre-Filled Syringe SC SCH (22:11)
--- NOTE | 2017-08-13 01:33 | CON ---
DATE OF CONSULTATION: 08/12/2017 HISTORY OF PRESENT ILLNESS: Mr. Sue is a very pleasant 71-year-old female who was referred by Dr. Edgar Adams's office to Dr. Martinez for issues with anemia, heartburn, and indigestion. Dr. Martinez mackey d actually seen about a year ago and she had bad C. diff. She did have some anemia at that time, but had chronic renal failure, normocytic normochromic indices. She had high ferritin but very low tota l irons and iron saturations. The patient was seen in our office yesterday and had some blood work d one today. Her hemoglobin is 6.8 down from 7.6 on and 8.7 on 07/08/2017. She was told to come to the emergency room for further evaluation. Talking with her, she has no melena, hematochezia, or hematemesis. She does note early satiety and s ome weight loss of about 15 pounds. She is not on dialysis but has a very impaired renal function. She had been scheduled for upper and lower endoscopies in the outpatient setting. I have been asked to evaluate her here now for this. PAST MEDICAL HISTORY: Notable for type 2 diabetes, hypothyroidism, hypertension, chronic kidney dise ase, history of ischemic CVA, some reflux, asthma, C. diff a year ago. PAST SURGICAL HISTORY: Right cataract surgery, right ankle surgery, and bilateral tubal ligation. S he has not had an endoscopy in the past. SOCIAL HISTORY: The patient lives at home with family. She does not drink or use drugs. FAMILY HISTORY: Negative for coronary artery disease, colorectal cancer, or liver disease. Mother h ad lung cancer. REVIEW OF SYSTEMS: Negative for dysphagia or odynophagia. Positive for early satiety, mild dyspepsi a, and reflux. No exertional chest pain, no shortness of breath. No melena, hematochezia, or hemate mesis. PHYSICAL EXAMINATION: GENERAL: The patient is resting in bed. She is in no distress. VITAL SIGNS: Temperature is 99, was 98 on arrival, pulse 78, blood pressure 165/88. LUNGS: Clear. HEART: Regular rate and rhythm without clicks or murmurs. ABDOMEN: Soft, nontender, without rebound or guarding. LABORATORY DATA: Sodium 141, potassium 5, BUN and creatinine of 53 and 4.47. INR 1.1. White count 8.3, hemoglobin 6.8, MCV 84, platelet count 285. ASSESSMENT: Severe anemia. This all could be related to her renal failure. She does have some symp toms of early satiety. She has not had any previous colorectal cancer screening. She has had low ir on saturations but fairly high ferritin chronic disease. RECOMMENDATIONS: We will order a stool Hemoccult. We will get her scheduled for upper and lower end oscopy in light of her upper GI symptoms and lack of prior colorectal cancer screening. If these wer e negative, she probably needs to see Nephrology and/or Hematology about starting on some Epogen for bone marrow stimulation.
[2017-08-13 05:30] LABS: Anion Gap 14 mmol/L (10-20); BUN (Urea Nitrogen) 59 mg/dL (9.8-20.1); BUN/Creatinine Ratio 12.83; Calc. Creatinine Clearance 12 mL/min (70-130); Calcium 9.4 mg/dL (7.8-10.44); Carbon Dioxide 27 mmol/L (23-31); Chloride 103 mmol/L (98-107); Estimated GFR-MDRD 11; Phosphorus 3.8 mg/dL (2.3-4.7)
[2017-08-13] MEDS: Levothyroxine Sodium 100 MCG TAB PO SCH (05:35)
[2017-08-13] MEDS: GoLYTELY 4,000 ml Bottle PO SCH (05:40)
[2017-08-13 06:13] LABS: Hematocrit 24.3 % (36.0-47.0); Hypochromia SLIGHT = 6-15 cells (100X) (0-5/hpf); Mean Platelet Volume 6.1 fL (7.4-10.4); Metamyelocyte 1 % (0-0); Neutrophil 75 % (42-75); Red Blood Cell (RBC) Count 2.92 mill/uL (4.20-5.40); White Blood Cell (WBC) Count 7.6 thou/uL (4.8-10.8)
[2017-08-13] MEDS: Mometasone/Formoterol 120 PUFF INHALER INH SCH ×2 (07:55→18:36)
[2017-08-13] MEDS ORDERED: Insulin Detemir 100 UNITS/ML 10 UNITS in Pre-Filled Syringe SC SCH (09:00)
[2017-08-13] MEDS: Aspirin 325 MG TAB PO SCH (09:26)
[2017-08-13] MEDS: Amlodipine 10 MG TAB PO SCH (09:28)
[2017-08-13] MEDS: Carvedilol 25 MG TAB PO SCH ×2 (09:28→18:28)
[2017-08-13] MEDS: Furosemide 20 MG TAB PO SCH ×2 (09:28→13:54)
[2017-08-13] MEDS: hydrALAZINE 25 MG TAB PO SCH ×4 (09:28→21:55)
--- NOTE | 2017-08-13 10:02 | PDOC.PN ---
- Subjective Encounter Start Date: 08/13/17 Encounter Start Time: 07:40 -: old records requested/rev Patient seen and examined. No new complaints. No overnight events pt is preparing herself for procedure today - Objective Resuscitation Status: Resuscitation Status FULL:Full Resuscitation MAR Reviewed: Yes Vital Signs & Weight: Vital Signs (12 hours) Temp Pulse Resp BP BP Pulse Ox 08/13/17 09:28 90 183/85 H 08/13/17 08:20 99.6 F 90 20 08/13/17 07:46 99.6 F 90 20 183/85 H 93 L 08/13/17 04:45 99.9 F H 85 20 143/69 H 95 08/12/17 23:20 99.9 F H 84 16 162/78 H 94 L 08/12/17 22:10 68 Weight Weight 146 lb I&O: 08/12/17 08/13/17 08/14/17 06:59 06:59 06:59 Intake Total 2850 Output Total 1000 Balance 1850 Result Diagrams: 08/13/17 04:40 08/13/17 04:40 Additional Labs: Accuchecks 08/13/17 08/12/17 08/12/17 06:01 20:49 17:44 POC Glucose 192 H 141 H 145 H Phys Exam - Physical Examination Constitutional: NAD HEENT: PERRLA, moist MMs, sclera anicteric Neck: no JVD, supple Respiratory: no wheezing, no rales, no rhonchi Cardiovascular: RRR, no significant murmur, no rub Gastrointestinal: soft, non-tender, no distention, positive bowel sounds Musculoskeletal: no edema, pulses present Neurological: non-focal, normal sensation Lymphatic: no nodes Psychiatric: normal affect, A&O x 3 Skin: no rash, normal turgor Dx/Plan (1) Symptomatic anemia Code(s): D64.9 - ANEMIA, UNSPECIFIED Status: Acute (2) Anemia of renal disease Code(s): D63.1 - ANEMIA IN CHRONIC KIDNEY DISEASE Status: Chronic (3) CKD (chronic kidney disease) stage 5, GFR less than 15 ml/min Code(s): N18.5 - CHRONIC KIDNEY DISEASE, STAGE 5 Status: Chronic (4) Hypertension Code(s): I10 - ESSENTIAL (PRIMARY) HYPERTENSION Status: Chronic Qualifiers: (5) Hypothyroidism Code(s): E03.9 - HYPOTHYROIDISM, UNSPECIFIED Status: Chronic Qualifiers: (6) Metabolic acidosis Code(s): E87.2 - ACIDOSIS Status: Chronic (7) Type 2 diabetes mellitus Status: Chronic Qualifiers: - Plan cont current plan of care * today EGD and colonoscopy * if procedure is normal, will consider discharge after that * 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 Review of Systems - Review of Systems Eyes: negative: Pain, Vision Change, Conjunctivae Inflammation, Eyelid Inflammation, Redness, Other ENT: negative: Ear Pain, Ear Discharge, Nose Pain, Nose Discharge, Nose Congestion, Mouth Pain, Mouth Swelling, Throat Pain, Throat Swelling, Other Respiratory: negative: Cough, Dry, Shortness of Breath, Hemoptysis, SOB with Excertion, Pleuritic Pain, Sputum, Wheezing Cardiovascular: negative: Chest Pain, Palpitations, Orthopnea, Paroxysmal Noc. Dyspnea, Edema, Light Headedness, Other Gastrointestinal: negative: Nausea, Vomiting, Abdominal Pain, Diarrhea, Constipation, Melena, Hematochezia, Other Genitourinary: negative: Dysuria, Frequency, Incontinence, Hematuria, Retention , Other Musculoskeletal: negative: Neck Pain, Shoulder Pain, Arm Pain, Back Pain, Hand Pain, Leg Pain, Foot Pain, Other - Medications/Allergies Allergies/Adverse Reactions: Allergies Allergy/AdvReac Type Severity Reaction Status Date / Time No Known Allergies Allergy Verified 08/12/17 14:07 Medications: Current Medications Acetaminophen (Tylenol) 650 mg PO Q4H PRN PRN Reason: Headache/Fever or Pain Hydrocodone Bitart/Acetaminophen ([place] 5/325) 1 tab PO Q4H PRN PRN Reason: Moderate Pain (4-6) Al Hydroxide/Mg Hydroxide (Maalox) 30 ml PO Q6H PRN PRN Reason: Heartburn or Indigestion Albuterol/Ipratropium (Duoneb) 3 ml NEB [id number] PRN PRN Reason: SOB &/or Wheezing Amlodipine Besylate (Norvasc) 10 mg PO DAILY [facility] Last Admin: 08/13/17 09:28 Dose: 10 mg Artificial Tears (Tears Naturale) 0 drop EA EYE PRN PRN PRN Reason: Dry Eyes Aspirin (Aspirin) 325 mg PO DAILY [facility] Last Admin: 08/13/17 09:26 Dose: Not Given Atorvastatin Calcium (Lipitor) 80 mg PO [facility] Last Admin: 08/12/17 22:10 Dose: 80 mg Bisacodyl (Dulcolax) 10 mg OK Q24H PRN PRN Reason: Constipation Carvedilol (Coreg) 25 mg PO BID-[facility] Last Admin: 08/13/17 09:28 Dose: 25 mg Dextrose/Water (Dextrose 50%) 25 gm SLOW IVP PRN PRN PRN Reason: Hypoglycemia Last Admin: 08/13/17 05:35 Dose: 25 gm Furosemide (Lasix) 20 mg PO 0900,1400 [facility] Last Admin: 08/13/17 09:28 Dose: 20 mg Glucagon (Glucagon) 1 mg IM PRN PRN PRN Reason: Hypoglycemia Guaifenesin (Robitussin Sf) 200 mg PO Q4H PRN PRN Reason: Cough Hydralazine HCl (Apresoline) 10 mg SLOW IVP Q4H PRN PRN Reason: Systolic BP > 180 Hydralazine HCl (Apresoline) 50 mg PO QID [facility] Last Admin: 08/13/17 09:28 Dose: 50 mg Dextrose/Water (D5w) 1,000 mls @ 0 mls/hr IV .Q0M PRN; As Directed PRN Reason: Hypoglycemia Insulin Detemir 20 units/ (Miscellaneous Medication) 0.2 mls @ 0 mls/hr SC [facility] Last Admin: 08/12/17 22:11 Dose: 0.2 mls Insulin Detemir 10 units/ (Miscellaneous Medication) 0.1 mls @ 0 mls/hr SC [facility] Last Admin: 08/13/17 09:27 Dose: Not Given Insulin Human Lispro (Humalog) 0 units SC .MODERATE SLIDING SC PRN PRN Reason: Moderate Correctional Scale Insulin Human Lispro (Humalog) 0 units SC .BEDTIME SLIDING SC PRN PRN Reason: Bedtime Correctional Scale Levothyroxine Sodium (Synthroid) 100 mcg PO 0600 [facility] Last Admin: 08/13/17 05:35 Dose: 100 mcg Loperamide HCl (Imodium) 2 mg PO PRN PRN PRN Reason: Diarrhea/Loose Stools Loratadine (Claritin) 10 mg PO DAILYPRN PRN PRN Reason: Sinus Symptoms Magnesium Hydroxide (Milk Of Magnesium) 30 ml PO DAILYPRN PRN PRN Reason: Constipation Mineral Oil/White Petrolatum (Eucerin Cream) 0 gm TOP BIDPRN PRN PRN Reason: Dry Skin Mometasone Furoate/Formoterol Fumar (Dulera 200 Mcg/5 Mcg Inhaler) 2 puff INH BID-RT [facility] Last Admin: 08/13/17 07:55 Dose: 2 puff Ondansetron HCl (Zofran Odt) 4 mg PO Q6H PRN PRN Reason: Nausea/Vomiting Ondansetron HCl (Zofran) 4 mg IVP Q6H PRN PRN Reason: Nausea/Vomiting Pantoprazole Sodium (Protonix) 40 mg PO DAILY [facility] Last Admin: 08/13/17 09:29 Dose: 40 mg Senna (Senokot) 2 tab PO HSPRN PRN PRN Reason: Constipation Sodium Chloride ([place] Nasal Ione 0.65%) 0 ml EA NARE QIDPRN PRN PRN Reason: Nasal Congestion Sodium Chloride (Flush - Normal Saline) 10 ml IVF Q12HR [facility] Last Admin: 08/13/17 09:29 Dose: 10 ml Sodium Chloride (Flush - Normal Saline) 10 ml IVF PRN PRN PRN Reason: Saline Flush Zolpidem Tartrate (Ambien) 5 mg PO HSPRN PRN PRN Reason: Insomnia
--- NOTE | 2017-08-13 11:24 | DIS ---
DATE OF ADMISSION: 08/12/2017 DATE OF DISCHARGE: 08/13/2017 PRIMARY CARE PHYSICIAN: Edgar Adams D.O. DISCHARGE DISPOSITION: Home. PRIMARY DISCHARGE DIAGNOSES: 1. Symptomatic anemia, status post transfusion. 2. Status post esophagogastroduodenoscopy and colonoscopy. SECONDARY DISCHARGE DIAGNOSES: Diabetes, type 2; chronic metabolic acidosis due to renal failure; hy pothyroidism; hypertension; chronic kidney disease, stage 5; anemia of renal disease; secondary hyper parathyroidism of renal origin; asthma. PRIMARY PROCEDURE/OPERATION: EGD and colonoscopy. RADIOLOGICAL INVESTIGATION: None. SIGNIFICANT LABORATORY DATA: WBC 7.6, hemoglobin 8.0, platelets 296. INR 1.1. Sodium 140, potassiu m 4.2, BUN 59, creatinine 4.60, calcium 9.4, phosphorus 3.8, albumin 3.0, ferritin 245. DISCHARGE MEDICATIONS: Norvasc 10 mg p.o. daily, aspirin 325 mg p.o. daily, Lipitor 80 mg p.o. at be dtime, Symbicort 1 puff inhalation b.i.d., Coreg 25 mg p.o. b.i.d., clonidine 0.1 mg p.o. q.8 hourly p.r.n., ferrous sulfate 325 mg p.o. daily, Nephro-Paloma 1 tablet p.o. daily, Lasix 20 mg p.o. b.i.d., hydralazine 75 mg p.o. q.i.d., Levemir insulin 20 units subcu in the morning and 15 units at bed time , Xopenex 1 puff inhalation q.4 hourly p.r.n., Synthroid 100 mcg p.o. daily, omeprazole 40 mg p.o. da kiera. CONTRAINDICATIONS: None. CODE STATUS: FULL CODE. INPATIENT CONSULTANTS: Dr. Lombardi was consulted for anemia. TEST RESULTS PENDING ON DISCHARGE: None. DISCHARGE PLAN: Post hospital, the patient will follow up with primary care physician, Dr. Martinez as w ell as Dr. Diop. HOSPITAL COURSE: A 71-year-old female who had intermittent constipation as well as poor p.o. toleran ce, bloating, and acid reflux symptoms and she never had any surveillance colonoscopy and she was ane carolyn that is why her primary care physician referred her to a value engineer. The gastroenterolog ist did blood test and they found her hemoglobin less than 7 and that is why she was instructed to go to the ER for admission. The patient was medically stable in the emergency room. We admitted for o bservation. We transfused her 1 unit of blood. We also consulted GI and they decided to do EGD and colonoscopy while in hospital. The patient had preparation for EGD and colonoscopy during nighttime and to this morning. The patient is planned for procedure later on today. If procedure is normal wi thout any worrisome finding then she can be discharged home later on today. The patient is advised t o follow up with Nephrology as well as Hematology for outpatient Procrit injection therapy. We are s tarting Nephro-Paloma and ferrous sulfate upon discharge. On the day of discharge, her hemoglobin is 8 .0. Her creatinine is 4.60. She is almost approaching ESRD, and I discussed with her about need of renal replacement therapy. She reassured me that she will make appointment with manager program. On , we are continuing all her previous medications without any significant change. New medicati on prescription sent to her pharmacy. The patient is seen and examined at bedside today. Please see my progress note from today for furthe r details.
[2017-08-13] MEDS ORDERED: Fleet Enema 133 ML BOT FS SCH (13:00)
[2017-08-13] MEDS ORDERED: Propofol 200 MG/20 ML VIAL ONE (15:39)
[2017-08-13] MEDS ORDERED: Ondansetron HCl/PF 4 MG/2 ML Vial IVP PRN (18:08)
[2017-08-13] MEDS ORDERED: Promethazine HCl 25 MG/ML VIAL SLOW IVP PRN (18:08)
[2017-08-13] MEDS ORDERED: Promethazine HCl 25 MG/ML VIAL IM PRN (18:08)
--- NOTE | 2017-08-13 19:26 | OP ---
PREOPERATIVE DIAGNOSES: 1. Severe anemia, normocytic, normochromic. 2. Iron studies and pattern suggestive of chronic disease with low iron, low TIBC, and high ferritin . 3. Anorexia, early satiety. 4. Prior colorectal cancer screening. POSTOPERATIVE DIAGNOSES: 1. Mild hiatal hernia, no stigmata to suggest bleeding or anemia, source of upper GI tract, small jorge luis wel biopsy. 2. Colonoscopy notable for 4 polyps in the ascending colon and 3 polyps in the descending and sigmoi d colon by snare polypectomy. The largest of these were about 1.5 cm in size, small about 2 mm in si ze. 3. Suspect anemia is related to her renal failure. She has got anemia of chronic disease with negat rody for occult blood and a creatinine of over 4.5, is probably time to get on some Epogen. We would defer this to primary service and Nephrology or Hematology. RECOMMENDATIONS: 1. Address iron as above. 2. I will follow pathology in the outpatient setting, then recommend interval colonoscopy, this is d epending on those findings. ANESTHESIA: TIVA. PROCEDURE IN DETAIL: After the patient was informed of the risks, benefits, possible complications o f endoscopy including perforation, reactions to medication and aspiration, informed consent was obtai clark. The patient was brought to endoscopy suite where she was sedated in gradual fashion. Once she was comfortable, a bite block was placed in incisural orifice. The endoscope was advanced through th e esophagus, stomach and second and third portion of duodenum. There was hiatal hernia noted. The s tomach was otherwise normal. The esophagus was normal. Duodenum was normal. Third portion biopsy w as taken to rule out celiac. The scope was removed. The patient was turned in the room. A rectal examination was performed. The endoscope was advanced through anal canal through the colon to cecum was identified by ileocecal valve and appendiceal orifi ce. The colon was tortuous. There were 7 polyps scattered throughout the right and left colon by sn are polypectomy resection we removed size from 2 to 12 mm. Retroflexed views in the rectum were norm al. The patient tolerated the procedure well with no complications.
[2017-08-13] MEDS: Atorvastatin Calcium 40 MG TAB PO SCH (19:58)
[2017-08-13] MEDS: Insulin Detemir 100 UNITS/ML 20 UNITS in Pre-Filled Syringe SC SCH (19:59)
[2017-08-14] MEDS: Levothyroxine Sodium 100 MCG TAB PO SCH (04:26)
[2017-08-14] MEDS: Mometasone/Formoterol 120 PUFF INHALER INH SCH (06:55)
[2017-08-14 08:15] VITALS: TEMP 98.9
[2017-08-14] MEDS: Aspirin 325 MG TAB PO SCH (08:22)
[2017-08-14] MEDS: Furosemide 20 MG TAB PO SCH (08:22)
[2017-08-14] MEDS: Amlodipine 10 MG TAB PO SCH (08:22)
[2017-08-14] MEDS: hydrALAZINE 25 MG TAB PO SCH (08:22)
[2017-08-14] MEDS: Carvedilol 25 MG TAB PO SCH (08:22)
[2017-08-14 09:55] VITALS: BP 146/81
--- NOTE | 2017-08-14 10:22 | PDOC.PN ---
- Subjective Encounter Start Date: 08/14/17 Encounter Start Time: 07:00 Patient seen and examined. No new complaints. No overnight events - Objective Resuscitation Status: Resuscitation Status FULL:Full Resuscitation MAR Reviewed: Yes Vital Signs & Weight: Vital Signs (12 hours) Temp Pulse Resp BP Pulse Ox 08/14/17 09:55 93 146/81 H 08/14/17 08:22 87 08/14/17 07:30 98.9 F 87 16 181/88 H 95 08/14/17 04:23 98.6 F 85 16 172/80 H 95 08/14/17 00:00 99.7 F H 95 22 H 167/83 H 92 L Weight Admit Weight 146 lb Weight 146 lb I&O: 08/13/17 08/14/17 08/15/17 06:59 06:59 06:59 Intake Total 2850 960 Output Total 1000 800 Balance 1850 160 Result Diagrams: 08/13/17 04:40 08/13/17 04:40 Additional Labs: Accuchecks 08/14/17 08/13/17 08/13/17 04:29 18:29 10:44 POC Glucose 137 H 105 75 Phys Exam - Physical Examination Constitutional: NAD HEENT: PERRLA, moist MMs, sclera anicteric Neck: no nodes, no JVD, supple Respiratory: no wheezing, no rales, no rhonchi Cardiovascular: RRR, no significant murmur, no rub Gastrointestinal: soft, non-tender, no distention, positive bowel sounds Musculoskeletal: no edema, pulses present Neurological: non-focal, normal sensation, moves all 4 limbs Psychiatric: normal affect, A&O x 3 Skin: no rash, normal turgor Dx/Plan (1) Symptomatic anemia Code(s): D64.9 - ANEMIA, UNSPECIFIED Status: Acute (2) Anemia of renal disease Code(s): D63.1 - ANEMIA IN CHRONIC KIDNEY DISEASE Status: Chronic (3) CKD (chronic kidney disease) stage 5, GFR less than 15 ml/min Code(s): N18.5 - CHRONIC KIDNEY DISEASE, STAGE 5 Status: Chronic (4) Hypertension Code(s): I10 - ESSENTIAL (PRIMARY) HYPERTENSION Status: Chronic Qualifiers: (5) Hypothyroidism Code(s): E03.9 - HYPOTHYROIDISM, UNSPECIFIED Status: Chronic Qualifiers: (6) Metabolic acidosis Code(s): E87.2 - ACIDOSIS Status: Chronic (7) Type 2 diabetes mellitus Status: Chronic Qualifiers: - Plan cont current plan of care * stable for discharge * medication reviewed as below * symptomatic treatment. Review of Systems - Review of Systems ENT: negative: Ear Pain, Ear Discharge, Nose Pain, Nose Discharge, Nose Congestion, Mouth Pain, Mouth Swelling, Throat Pain, Throat Swelling, Other Respiratory: negative: Cough, Dry, Shortness of Breath, Hemoptysis, SOB with Excertion, Pleuritic Pain, Sputum, Wheezing Cardiovascular: negative: Chest Pain, Palpitations, Orthopnea, Paroxysmal Noc. Dyspnea, Edema, Light Headedness, Other Gastrointestinal: negative: Nausea, Vomiting, Abdominal Pain, Diarrhea, Constipation, Melena, Hematochezia, Other Genitourinary: negative: Dysuria, Frequency, Incontinence, Hematuria, Retention , Other Musculoskeletal: negative: Neck Pain, Shoulder Pain, Arm Pain, Back Pain, Hand Pain, Leg Pain, Foot Pain, Other Skin: negative: Rash, Lesions, [place], Bruising, Other - Medications/Allergies Allergies/Adverse Reactions: Allergies Allergy/AdvReac Type Severity Reaction Status Date / Time No Known Allergies Allergy Verified 08/12/17 14:07
--- NOTE | 2017-08-14 10:52 | ADD-DIS ---
ADDENDUM: The patient underwent EGD and was found with a mild hiatal hernia. I provided patient education abou t hiatal hernia and diet to prevent reflux. Colonoscopy showed polyps in the ascending colon, descen ding colon, and sigmoid colon, which was removed by snare polypectomy, and after procedure, the patie nt was observed overnight. She did not have any further bleeding. At this point, we are suspecting anemia related with renal failure. The patient will follow up with Nephrology or Hematology for Proc rit injections. The patient is seen and examined at bedside today. Please see my progress note from today for furthe r details. Please see my discharge summary dictated yesterday for more detail.
== END 2017-08-14 10:16 | disposition home or self-care (01) ==
LOC: ERS 11:01 → 2SW 12:30
PROVIDERS: ADMIT Internal Medicine; ATTEND Internal Medicine
PROC: 0DB68ZX Excision of Stomach, Via Natural or Artificial Opening Endoscopic, Diagnostic (ICD-10-PCS; principal; 2017-08-13)
PROC: 0DBK8ZX Excision of Ascending Colon, Via Natural or Artificial Opening Endoscopic, Diagnostic (ICD-10-PCS; 2017-08-13)
PROC: 0DBN8ZX Excision of Sigmoid Colon, Via Natural or Artificial Opening Endoscopic, Diagnostic (ICD-10-PCS; 2017-08-13)
PROC: 0DBM8ZX Excision of Descending Colon, Via Natural or Artificial Opening Endoscopic, Diagnostic (ICD-10-PCS; 2017-08-13)
DX: D64.9 Anemia, unspecified (principal); K29.50 Unspecified chronic gastritis without bleeding; D12.2 Benign neoplasm of ascending colon; D12.4 Benign neoplasm of descending colon; K44.9 Diaphragmatic hernia without obstruction or gangrene; D12.5 Benign neoplasm of sigmoid colon; E03.9 Hypothyroidism, unspecified; I12.9 Hypertensive chronic kidney disease with stage 1 through stage 4 chronic kidney disease, or unspecified chronic kidney disease; E11.22 Type 2 diabetes mellitus with diabetic chronic kidney disease; N18.4 Chronic kidney disease, stage 4 (severe); R63.0 Anorexia; Z68.24 Body mass index [BMI] 24.0-24.9, adult; Z98.890 Other specified postprocedural states
CPT/HCPCS: 36415; 36416; 36430; 80053; 80069; 82274; 82728; 83540; 83550; 85025; 85610; 85730; 86850; 86900; 86901; 88305; 88312; 90471; 90732; 96374; 96375; A4216; G0009; G0378; J1815; J1940; J2704; P9016; Q4081

== ENCOUNTER 2017-08-24 11:53 | Inpatient (IN) | payer MEDICARE, BC ==
--- NOTE | 2017-08-24 12:36 | RAD ---
ONE VIEW CHEST: Comparison: 07-19-17 History: Chest pain. High risk patient. FINDINGS: Cardiomegaly and pulmonary vascular prominence is noted. Small bilateral effusions identified. Bibasi lar parenchymal changes, left greater than right. Hyperinflation is noted. No pneumothorax. IMPRESSION: 1. Cardiomegaly. 2. Congestive heart failure. 3. Bibasilar pneumonia, left greater than right. Continued surveillance. POS: [facility]
[2017-08-24 13:07] LABS: #Eosinphils 0.3 thou/uL (0.0-0.7); #Monocytes 0.9 thou/uL (0.11-0.59); #Neutrophils 8.2 thou/uL (1.40-6.50); %Basophils 0.1 % (0.0-1.0); %Eosinophils 2.8 % (0.0-10.0); %Lymphocytes 9.3 % (21.0-51.0); %Monocytes 8.3 % (0.0-10.0); %Neutrophils 79.6 % (42.0-75.0); Hemoglobin 7.5 g/dL (12.0-16.0); Mean Corpuscular HGB CONC 31.9 g/dL (32.0-36.0); Mean Corpuscular Hemoglobin 26.9 pg (27.0-31.0); Mean Corpuscular Volume 84.2 fl (81.0-99.0); Mean Platelet Volume 6.3 fL (7.4-10.4); Platelet Count 457 thou/uL (130-400); RBC Distribution Width 13.9 % (11.5-14.5); Red Blood Cell (RBC) Count 2.78 mill/uL (4.20-5.40); White Blood Cell (WBC) Count 10.2 thou/uL (4.8-10.8)
[2017-08-24 13:28] LABS: ALT (SGPT) 8 U/L (8-55); AST (SGOT) 18 U/L (5-34); Albumin 2.9 g/dL (3.4-4.8); Alkaline Phosphatase 128 U/L (40-150); Anion Gap 19 mmol/L (10-20); BUN (Urea Nitrogen) 115 mg/dL (9.8-20.1); Bilirubin, Total 0.5 mg/dL (0.2-1.2); CK (CPK) 65 U/L (29-168); Calc. Creatinine Clearance 0 mL/min (70-130); Calcium 8.3 mg/dL (7.8-10.44); Carbon Dioxide 20 mmol/L (23-31); Chloride 101 mmol/L (98-107); Estimated GFR-MDRD 7; Globulin 3.7 g/dL (2.4-3.5); Glucose 213 mg/dL (80-115); Potassium 4.1 mmol/L (3.5-5.1); Protein, Total 6.6 g/dL (6.0-8.3); Sodium 136 mmol/L (136-145)
[2017-08-24 13:33] LABS: CKMB 1.9 ng/mL (0-6.6); Troponin I 0.031 ng/mL (< 0.028)
[2017-08-24] MEDS ORDERED: hydrALAZINE 25 MG TAB PO SCH (14:15)
[2017-08-24] MEDS ORDERED: Piperacillin/Tazobactam 4.5 GM in Sodium Chloride 0.9% 100 ML IVPB SCH (15:30)
--- NOTE | 2017-08-24 16:35 | HP ---
PRIMARY CARE PHYSICIAN: Edgar Adams D.O. PRIMARY REGION MANAGER: Dr. Diop. REASON FOR ADMISSION: Worsening renal failure approach to ESRD, bibasilar pneumonia. HISTORY OF PRESENT ILLNESS: A 71-year-old female who has underlying multiple medica l problems including hypertension, diabetes type 2, hypothyroidism, dyslipidemia, and chronic kidney disease stage 4, who was recently admitted in our hospital on 08/12/2017. At that time, patient had low hemoglobin. She was given blood transfusions and she had GI workup. Dr. Lombardi did upper endosc opy and patient did not have any etiology for her anemia and eventually anemia was attributed to be d ue to worsening renal failure. This patient is following Dr. Diop as an outpatient basis. Patient was admitted recently under obser vation status and she was discharged home after blood transfusion and after upper endoscopy and patie nt was instructed to follow up with Dr. Diop. A couple of days ago, patient made appointment with Dr. Diop and the patient had routine blood test d one and patient was given referral to Oncology for Procrit injection. Since discharge, the patient h as not received any Procrit injection. Her last Procrit was given while in hospital previously. Even after correction of her hemoglobin, patient continued to feel dyspnea on exertion. She is feeli ng belching. She is having anorexia, itching, and nausea. Patient is not feeling normal. She is al so having orthopnea and intermittent cough. She did not have any fever or chills. She denies any si ck exposures. She denies any recent travel. She is making only little amount of urine. The patient denies any urinary tract infection symptoms. She denies any constipation, diarrhea, melena, hematoc hezia. Nowadays, patient is only able to walk few steps and she gets out of breath and that is why f marcus member brought her to the emergency room for evaluation. Today, routine blood tests showed creatinine 7.17, previously it was 4.6 and few days ago, when Dr. Samantha hernadez did blood test, at that time her hemoglobin was 6.9 and now is 7.17. Patient denies any chest pa in and palpitation. Today, her troponin is indeterminate range. Her hemoglobin is 7.5. At this poi nt, we are admitting for uremia and ESRD plus bibasilar pneumonia. ALLERGIES: No known drug allergies. CURRENT HOME MEDICATIONS: Amlodipine 10 mg p.o. daily, aspirin 325 mg p.o. daily, Lipitor 80 mg p.o. at bedtime, Symbicort 1 puff inhalation b.i.d., Coreg 25 mg p.o. b.i.d., clonidine 0.1 mg q.8 hourly , ferrous sulfate 325 mg p.o. daily, Nephro-Paloma 1 tablet p.o. daily, Lasix 20 mg p.o. b.i.d., hydral azine 75 mg p.o. q.i.d., Levemir insulin 20 units in the morning and 15 units at bedtime, Xopenex inh alation q.4 hourly p.r.n., Synthroid 100 mcg p.o. daily, omeprazole 40 mg p.o. daily. PAST MEDICAL HISTORY: Diabetes type 2, hypothyroidism, gastroesophageal reflux disease, hypertension , chronic kidney disease stage 5, history of ischemic CVA with left-sided weakness in 2016, asthma, h istory of C. diff colitis in the past. PAST SURGICAL HISTORY: Right cataract surgery, right ankle surgery, tubal ligation, upper endoscopy by Dr. Lombardi recently. PAST PSYCHIATRIC HISTORY: Reviewed and negative. SOCIAL HISTORY: Patient lives at home with her daughter. No history of tobacco, alcohol or illicit drug abuse. FAMILY HISTORY: No strong family history of coronary artery disease or stroke. Diabetes and hyperte nsion runs among several family members. Mother had lung cancer. Father had diabetes and 1 sister a lso has a history of diabetes. EMERGENCY ROOM COURSE: Patient has received vancomycin, Zosyn, Levaquin, and hydralazine 75 mg. REVIEW OF SYSTEMS: The following complete review of systems was negative, unless otherwise mentioned in the HPI or below: Constitutional: Weight loss or gain, ability to conduct usual activities. Skin: Rash, itching. Eyes: Double vision, pain. ENT/Mouth: Nose bleeding, neck stiffness, pain, tenderness. Cardiovascular: Palpitations, dyspnea on exertion, orthopnea. Respiratory: Shortness of breath, wheezing, cough, hemoptysis, fever or night sweats. Gastrointestinal: Poor appetite, abdominal pain, heartburn, nausea, vomiting, constipation, or diarr hea. Genitourinary: Urgency, frequency, dysuria, nocturia. Musculoskeletal: Pain, swelling. Neurologic/Psychiatric: Anxiety, depression. Allergy/Immunologic: Skin rash, bleeding tendency. Please see my HPI for pertinent positives and negatives. All other review of systems reviewed and ne gative except as mentioned in the HPI. PHYSICAL EXAMINATION: VITAL SIGNS: On arrival, blood pressure 132/69, pulse 63, respiratory rate 20, temperature 98.0, sat uration 96% on room air, weight 65.7 kilograms. GENERAL: Patient is currently alert, awake, no obvious acute distress. HEAD: Normocephalic, atraumatic. EYES: Pupils round, reactive to light. Extraocular muscles intact. Pallor plus. ENT: Oropharynx within normal limits. Moist mucous membranes. No oral lesions. No pharyngeal eryt collin, no exudate. NECK: Supple, no JVD, no thyromegaly, no carotid bruit. LUNGS: Bibasilar air entry reduced. There are few rales noted. No accessory muscles of respiration in use. CARDIAC: S1, S2 regular. No murmur, no gallop, no rub. ABDOMEN: Soft, bowel sounds present, nontender, nondistended. No organomegaly, no mass, no suprapub ic tenderness. BACK: Examination unremarkable, no CVA tenderness. EXTREMITIES: Upper extremity; passive movements of all joints are normal. Lower extremities: No ed john. Good peripheral pulsation. No calf tenderness. SKIN: No skin rash. HEMATOLOGICAL SYSTEM: No lymphadenopathy. PSYCHIATRIC: Normal affect. NEUROLOGIC: Nonfocal examination. The patient moves all 4 limbs. Plantar bilateral flexor. IMAGING DATA AND SIGNIFICANT LABORATORY DATA: 1. EKG based on my review left ventricular hypertrophy, left atrial enlargement. 2. Chest x-ray based on my review, bilateral pleural effusion findings suggestive of congestive hear t failure, bibasilar infiltration, and cardiomegaly. 3. CBC: WBC is 10.2, hemoglobin 7.5, platelets 457 with left shift. 4. BMP: Sodium 136, potassium 4.1, chloride 101, carbon dioxide 20, anion gap 19, BUN 115, creatini ne 7.17, glucose 213, calcium 8.3. 5. LFT: AST 18, ALT 8, alkaline phosphatase 128, albumin 2.9. CK 65, CK-MB 1.9, troponin 0.031. ASSESSMENT AND PLAN/IMPRESSION: 1. Bibasilar pneumonia. Patient does not have any typical symptoms of pneumonia, but patient does h ave bibasilar parenchymal changes, could be atelectasis versus infiltration. At this point, empirica lly we will start Rocephin 1 gram q.24 hours, Levaquin 500 mg every other day based on renal dose, Du oNeb therapy will be given. 2. End-stage renal disease, patient has almost approached end-stage renal disease. She has glomerul ar filtration rate only 7%. Patient will need dialysis. We will consult Dr. Diop to initiate this p rocess. Nephrology has to consult General Surgery for dialysis access. Patient has uremia symptoms. Further decisions will defer to Nephrology. We will continue ferrous sulfate, Procrit, Nephro-Paloma and sodium bicarbonate and we will monitor renal function. 3. Acute on chronic diastolic congestive heart failure exacerbation, likely due to renal failure. T he patient's most recent echocardiography showed ejection fraction 55%-60% with left ventricular hype rtrophy and diastolic dysfunction. 4. Anemia of renal disease. We will continue ferrous sulfate, Nephro-Paloma and Procrit. 5. Diabetes type 2. We will continue home dose of Levemir insulin and Humalog insulin as per slidin g scale. Diabetic diet will be given. 6. Asthma. We will continue DuoNeb q.6 hourly and Dulera 2 puff inhalation b.i.d. 7. Gastroesophageal reflux disease. We will continue Protonix 40 mg p.o. daily. 8. Hypertension. We will continue hydralazine 75 mg q.i.d., amlodipine 10 mg p.o. daily, and Coreg 25 mg p.o. b.i.d. 9. Hypothyroidism. We will continue Synthroid 100 mcg p.o. daily. 10. Dyslipidemia. We will continue Lipitor 80 mg p.o. at bedtime. 11. Vitamin D deficiency. We will continue vitamin D3 1000 units p.o. daily and calcitriol 0.5 mcg p.o. daily. 12. Metabolic acidosis. We will continue sodium bicarbonate 325 mg p.o. b.i.d. 13. Deep venous thrombosis prophylaxis, heparin 5000 units subcu twice daily. 14. Gastrointestinal prophylaxis, Protonix 40 mg p.o. daily. CODE STATUS: The patient is FULL CODE. Patient's daughter is surrogate decision maker. Disposition plan based on clinical course. We are expecting patient's stay in hospital more than 2 m idnights. Plan of care discussed with the family member at bedside in the emergency room.
[2017-08-24 17:00] LABS: Troponin I 0.044 ng/mL (< 0.028)
[2017-08-24] MEDS ORDERED: Ondansetron HCl/PF 4 MG/2 ML Vial IVP PRN (17:31)
[2017-08-24] MEDS ORDERED: Epoetin (ESRD) 20,000 UNITS/ML SC SCH (17:31)
[2017-08-24] MEDS ORDERED: Eucerin (Mineral Oil/Petrolatum,White) 30 gm Jar TOP PRN (17:31)
[2017-08-24] MEDS ORDERED: Loratadine 10 MG TAB PO PRN (17:31)
[2017-08-24] MEDS ORDERED: Chloraseptic Spray 180 ml Bottle PO PRN (17:31)
[2017-08-24] MEDS ORDERED: Sodium Chloride 0.65% Nasal 44 ML BOT EA NARE PRN (17:31)
[2017-08-24] MEDS ORDERED: Diabetic Tussin 200 MG/10 ML UDCUP PO PRN (17:31)
[2017-08-24] MEDS ORDERED: Labetalol HCl 100 MG/20 ML VIAL SLOW IVP PRN (17:31)
[2017-08-24] MEDS ORDERED: Dextrose 50% Abboject 50 ML SYRINGE SLOW IVP PRN (17:31)
[2017-08-24] MEDS ORDERED: Artificial Tears 18 DROP/0.9 ML EA EYE PRN (17:31)
[2017-08-24] MEDS ORDERED: Dextrose 5% in Water 1,000 ML IV PRN (17:31)
[2017-08-24] MEDS ORDERED: Loperamide HCl 2 MG CAP PO PRN (17:31)
[2017-08-24] MEDS ORDERED: cefTRIAXone\\ROCEPHIN 1 GM in Sodium Chloride 0.9% 100 ML IVPB SCH (17:31)
[2017-08-24] MEDS ORDERED: Mag-Al 1200 mg/1200 mg/30 ML UDCUP PO PRN (17:31)
[2017-08-24] MEDS ORDERED: Acetaminophen 325 MG TAB PO PRN (17:31)
[2017-08-24] MEDS ORDERED: Nitroglycerin 0.4 MG TAB (25 Tab Bottle) SL PRN (17:31)
[2017-08-24] MEDS ORDERED: Senokot 8.6 MG TAB PO PRN (17:31)
[2017-08-24] MEDS ORDERED: HumaLOG 300 UNITS/3 ML VIAL SC PRN (17:31)
[2017-08-24] MEDS ORDERED: Ondansetron ODT 4 MG TAB PO PRN (17:31)
[2017-08-24] MEDS ORDERED: Milk Of Magnesia 30 ML UDCUP PO PRN (17:31)
[2017-08-24] MEDS ORDERED: hydrALAZINE 20 MG/ML VIAL SLOW IVP PRN (17:31)
[2017-08-24] MEDS ORDERED: PROVENTIL INHALER 6.7 G (200 INHALATIONS) INH PRN (18:00)
[2017-08-24] MEDS: hydrALAZINE 25 MG TAB PO SCH ×2 (18:49→21:06)
[2017-08-24] MEDS: cefTRIAXone\\ROCEPHIN 1 GM, Syringe 0.4 ML in Sterile Water 9.6 ML SLOW IVP SCH (19:00)
[2017-08-24] MEDS: Mometasone/Formoterol 120 PUFF INHALER INH SCH (20:10)
[2017-08-24 20:29] LABS: Troponin I 0.035 ng/mL (< 0.028)
[2017-08-24] MEDS: Atorvastatin Calcium 40 MG TAB PO SCH (21:06)
[2017-08-24] MEDS: Heparin 5,000 UNITS/ML VIAL SC SCH (21:07)
[2017-08-24] MEDS: Carvedilol 25 MG TAB PO SCH (21:07)
[2017-08-24] MEDS: cloNIDine 0.1 MG TAB PO SCH (21:07)
[2017-08-24] MEDS: Sodium Bicarbonate Tab 325 MG TAB PO SCH (21:07)
[2017-08-24] MEDS: Insulin Detemir 100 UNITS/ML 15 UNITS in Pre-Filled Syringe 1 EACH SC SCH (21:07)
[2017-08-24] MEDS ORDERED: Tuberculin PPD 0.1 ML VIAL I-DERMAL SCH (21:15)
[2017-08-25 05:01] LABS: #Eosinphils 0.3 thou/uL (0.0-0.7); #Lymphocytes 0.9 thou/uL (1.20-3.40); #Monocytes 0.6 thou/uL (0.11-0.59); #Neutrophils 6.6 thou/uL (1.40-6.50); %Eosinophils 3.6 % (0.0-10.0); %Lymphocytes 10.3 % (21.0-51.0); %Monocytes 7.5 % (0.0-10.0); %Neutrophils 78.6 % (42.0-75.0); Hemoglobin 7.1 g/dL (12.0-16.0); Mean Corpuscular HGB CONC 33.2 g/dL (32.0-36.0); Mean Corpuscular Hemoglobin 27.8 pg (27.0-31.0); Mean Corpuscular Volume 83.8 fl (81.0-99.0); Mean Platelet Volume 6.2 fL (7.4-10.4); Platelet Count 446 thou/uL (130-400); RBC Distribution Width 14.1 % (11.5-14.5); Red Blood Cell (RBC) Count 2.56 mill/uL (4.20-5.40); White Blood Cell (WBC) Count 8.4 thou/uL (4.8-10.8)
[2017-08-25] MEDS: cloNIDine 0.1 MG TAB PO SCH ×3 (05:35→21:33)
[2017-08-25 05:51] LABS: HBSAB Concentration 0.17 mIU/mL; HBSAg Index 0.19 S/CO (0-0.99); Hep B Core Total Ab Non-Reactive (NonReactive); Hep B Core Total Index 0.11 S/CO (0-0.79); Hep B Surf AB Non-Reactive (NonReactive); Hep B Surf Ag Non-Reactive S/CO (NonReactive); Hep C IgG Ab Non-Reactive (NonReactive); Hep C Index 0.16 S/CO (0-0.79)
[2017-08-25 06:09] LABS: Albumin 2.6 g/dL (3.4-4.8); Anion Gap 18 mmol/L (10-20); BUN (Urea Nitrogen) 120 mg/dL (9.8-20.1); BUN/Creatinine Ratio 17.34; Calc. Creatinine Clearance 8 mL/min (70-130); Calcium 8.4 mg/dL (7.8-10.44); Carbon Dioxide 19 mmol/L (23-31); Chloride 104 mmol/L (98-107); Estimated GFR-MDRD 7; Glucose 66 mg/dL (80-115); Phosphorus 4.2 mg/dL (2.3-4.7); Potassium 4.4 mmol/L (3.5-5.1); Sodium 137 mmol/L (136-145)
--- NOTE | 2017-08-25 07:04 | CON ---
DATE OF CONSULTATION: 08/24/2017 CONSULTING PHYSICIAN: Dr. Rawls. REASON FOR CONSULTATION: Worsening renal function. REASON FOR ADMISSION: Weakness. HISTORY OF PRESENT ILLNESS: This is a pleasant 71-year-old female with history of hypertension, type 2 diabetes, hypothyroidism, hyperlipidemia who came to the hospital with weakness and was found to have anemia, worsening renal function and the plan is to start on hemodialysis. Patient and family is agreeable to that and they will have surgery consult in the morning. The patient has been and getting progressively weak. She was found to be anemic and she was arranged to have Procrit . She was also found to have a GFR of 7 from 11, dropping and showing uremic symptoms. PAST MEDICAL HISTORY: Positive for type 2 diabetes, hypothyroidism, gastroesophageal reflux disease, hypertension, chronic kidney disease, ischemic , CVA, asthma, CKD . PAST SURGICAL HISTORY: Right cataract surgery, right ankle surgery, tubal ligation, and upper endoscopy. HOME MEDICATIONS: Amlodipine, aspirin, Lipitor, Symbicort, Coreg, clonidine, ferrous sulfate, Nephro-Paloma, Lasix, hydralazine, Levemir, Xopenex, Synthroid, omeprazole. ALLERGIES: No known drug allergies. SOCIAL HISTORY: No smoking, alcohol or illicit drug abuse. FAMILY HISTORY: No history of any kidney disease. REVIEW OF SYSTEMS: The following complete review of systems was negative, unless otherwise mentioned in the HPI or below: Constitutional: Weight loss or gain, ability to conduct usual activities. Skin: Rash, itching. Eyes: Double vision, pain. Ent/mouth: Nose bleeding, neck stiffness, pain, tenderness. Cardiovascular: Palpitations, dyspnea on exertion, orthopnea. Respiratory: Shortness of breath, wheezing, cough, hemoptysis, fever or night sweats. Gastrointestinal: Poor appetite, abdominal pain, heartburn, nausea,vomiting, constipation, or diarrhea. Genitourinary: Urgency, frequency, dysuria, nocturia. Musculoskeletal: Pain, swelling. Neurologic/psychiatric: Anxiety, depression. Allergy/immunologic: Skin rash, bleeding tendency. PHYSICAL EXAMINATION: GENERAL: This is an elderly female, in no apparent distress. VITAL SIGNS: Temperature 97, pulse 60, respiratory rate 20, blood pressure 146/ 70. HEENT: Atraumatic, normocephalic. Oral mucosa is moist. NECK: Supple, no masses. CARDIOVASCULAR: S1, S2 heard. Rate and rhythm regular. RESPIRATORY: Clear. ABDOMEN: Soft. MUSCULOSKELETAL: 1+ edema. DERMATOLOGIC: No skin rash. NEUROLOGIC: Alert, awake. PSYCHIATRIC: Mood and affect normal. LABORATORY AND X-RAY FINDINGS: Hemoglobin is 7.5. Potassium is 4.1, BUN is 115 , creatinine is 7.1. ASSESSMENT AND PLAN: 1. End-stage renal disease. Plan is to start her on hemodialysis during this admission and keep her n.p.o. after midnight, surgery consultation, placed PPD and case management consult for outpatient placement and we will start on Epogen. 2. Hypertension. 3. Edema. 4. Acidosis. 5. Anemia. We will start Epogen with dialysis. 6. Hypoalbuminemia. Plan is to start her on hemodialysis. Surgery consultation in the morning. N.p.o. after midnight. Thank you for the consultation. CRISTY
[2017-08-25] MEDS ORDERED: CEFAZOLIN/Water 2 GM/20 ML SYRINGE SLOW IVP SCH (08:00)
[2017-08-25] MEDS: Carvedilol 25 MG TAB PO SCH ×2 (09:35→20:21)
[2017-08-25] MEDS: Ferrous Sulfate 325 MG TAB PO SCH (09:42)
[2017-08-25] MEDS: Folic Acid/Vit B Comp W-C PO SCH (09:45)
[2017-08-25] MEDS: Heparin 5,000 UNITS/ML VIAL SC SCH ×2 (09:45→20:20)
[2017-08-25] MEDS: Epoetin (ESRD) 10,000 UNITS/ML VIAL IVP SCH (09:45)
[2017-08-25] MEDS: Aspirin 325 MG TAB PO SCH (09:45)
[2017-08-25] MEDS: Amlodipine 10 MG TAB PO SCH (09:45)
[2017-08-25] MEDS: Sodium Bicarbonate Tab 325 MG TAB PO SCH ×2 (09:46→20:21)
[2017-08-25] MEDS: Levothyroxine Sodium 100 MCG TAB PO SCH (09:46)
[2017-08-25] MEDS: hydrALAZINE 25 MG TAB PO SCH ×4 (09:49→20:20)
--- NOTE | 2017-08-25 10:18 | ULT ---
VENOUS DOPPLER ULTRASOUND OF THE UPPER EXTREMITIES FOR DIALYSIS ACCESS: HISTORY: Chronic renal failure. Dialysis access. FINDINGS: RIGHT UPPER EXTREMITY CEPHALIC VEIN PROXIMAL ARM: 1 mm MID ARM: 0.9 mm DISTAL ARM: 1.1 mm CUBITAL FOSSA: 1.2 mm PROXIMAL FOREARM: 1.3 mm MID FOREARM: 0.7 mm DISTAL FOREARM: 0.6 mm RIGHT UPPER EXTREMITY BASILIC VEIN UPPER ARM: The basilar compression is not visualized. CUBITAL FOSSA: 1.7 mm PROXIMAL FOREARM: 0.8 mm MID FOREARM: 0.6 mm DISTAL FOREARM: 0.4 mm RIGHT BRACHIAL ARTERY: 5.2 mm RIGHT RADIAL ARTERY: 2 mm RIGHT ULNAR ARTERY: 1.7 mm LEFT UPPER EXTREMITY CEPHALIC VEIN PROXIMAL ARM: Not visualized MID ARM: 0.7 mm DISTAL ARM: 0.6 mm CUBITAL FOSSA: 0.8 mm PROXIMAL FOREARM: 1.3 mm MID FOREARM: 0.9 mm DISTAL FOREARM: 1.5 mm LEFT UPPER EXTREMITY BASILIC VEIN PROXIMAL ARM: 2.7 mm MID ARM: 2.9 mm DISTAL ARM: 2.3 mm. CUBITAL FOSSA: 2 mm PROXIMAL FOREARM: 1.1 mm MID FOREARM: 0.9 mm DISTAL FOREARM: 1.1 mm LEFT BRACHIAL ARTERY: 3.4 mm LEFT RADIAL ARTERY: 2.5 mm LEFT ULNAR ARTERY: 2.5 mm POS: [facility]
[2017-08-25] MEDS: Mometasone/Formoterol 120 PUFF INHALER INH SCH ×2 (10:19→18:37)
[2017-08-25] MEDS: Insulin Detemir 100 UNITS/ML 20 UNITS in Pre-Filled Syringe 1 EACH SC SCH (10:28)
[2017-08-25] MEDS ORDERED: Heparin 1,000 UNITS/ML VIAL ONE (11:11)
--- NOTE | 2017-08-25 11:18 | CON ---
DATE OF CONSULTATION: 08/25/2017 HISTORY OF PRESENT ILLNESS: Genie Sue is a 71-year-old black female who lives in [facility] with her daughters. The patient has been followed for chronic kidney disease, now progressed to en d-stage renal disease in need of dialysis access. Dr. Diop has asked me to see her. She has had ult rasound vein mapping both arms suggesting the veins to be poor. The right upper extremity cephalic v ein is 1 mm to 1.2 mm antecubital fossa, basilic vein not visualized upper arm, 1.7 upper arm, 0.8 mm antecubital fossa, left upper extremity cephalic vein not visualized. Basilic vein 2.7, 2.9, 2.3 mm and 2 mm antecubital fossa. Plan is to place a left arm fistula. She understands she may need a pr osthetic graft. We will plan placement of hemodialysis catheter and a possible central line intraope ratively. The family understands the risks of infection, bleeding, reoperation, ischemia, revisions, thrombosis, revisions, possible use of prosthetic graft depending on vein quality and consent, quest ions answered. She may be a candidate for peritoneal dialysis in the future. There are no hernias n oted on exam. ALLERGIES: None. TOBACCO: None. ALCOHOL: None. MEDICATIONS: At home; insulin 15 units subcu at bedtime, Detemir 100 units (Levemir), furosemide 20 mg b.i.d., folic acid daily, ferrous sulfate daily, carvedilol 25 mg b.i.d., atorvastatin 80 mg at be dtime, Symbicort b.i.d., aspirin 325 daily, amlodipine 10 mg daily, hydralazine 75 mg q.i.d., Catapre s 0.1 mg q.8h., omeprazole 40 mg a day, levothyroxine 100 mcg daily, levalbuterol tartrate inhaler q. 4h. p.r.n., insulin detemir (Levemir) 20 units subcu a.m. PAST SURGICAL HISTORY: Dr. Lombardi performed upper and lower endoscopy 08/13/2017 with ascending colo n polypectomy x4, descending colon polypectomy x3 and findings of a mild hiatal hernia. Pathology re vealed fragments of tubular adenomas, H. pylori negative. The patient has undergone nuclear cardiac stress testing 07/09/2017 that was normal with normal wall motion 64% EF, no ischemia. Bilateral tub al ligation, ORIF right ankle, cataract surgery, colonoscopy and EGD a week ago, cardiac stress test as noted above. PAST MEDICAL HISTORY: Diabetes mellitus, hypertension. REVIEW OF SYSTEMS: Ten point noncontributory. PHYSICAL EXAMINATION: VITAL SIGNS: Height 5 feet 5, 24 BMI, 69, 16 respiratory rate. HEENT: Unremarkable. Sclerae nonicteric. LUNGS: Clear to auscultation. CARDIAC: Regular rate and rhythm with a 3/6 ejection murmur. ABDOMEN: Soft, nontender, no identifiable hernias. NEURO: Neurologically intact. No focal weaknesses. LYMPH: No adenopathy groins neck, axilla. Echocardiogram reveals a grade I diastolic dysfunction, mild MR, mild LVH, mild annular calcification . White count 8, hemoglobin 7.1. Basic metabolic profile changes consistent with end-stage renal di sease, otherwise unremarkable. ASSESSMENT AND PLAN: 1. End-stage renal disease. We will plan placement of a hemodialysis catheter, possible central palmira e and left arm fistula, possible dialysis graft. She could be a candidate in the future for peritone al dialysis after further analysis. If her veins are poor she understands she will need a prosthetic graft. The risks and benefits as outlined above. Questions answered. 2. Insulin-dependent diabetes mellitus. 3. Hypertension. 4. Asthma.
--- NOTE | 2017-08-25 11:29 | PDOC.PN ---
- Subjective Encounter Start Date: 08/25/17 Encounter Start Time: 08:30 -: old records requested/rev Patient seen and examined. No new complaints. No overnight events - Objective MAR Reviewed: Yes Vital Signs & Weight: Vital Signs (12 hours) Temp Pulse Resp BP BP Pulse Ox 08/25/17 10:19 69 16 08/25/17 10:13 97 08/25/17 10:10 69 16 08/25/17 09:49 73 08/25/17 09:45 73 08/25/17 08:00 98.1 F 73 20 08/25/17 07:25 98.1 F 73 20 160/67 H 95 08/25/17 05:35 138/65 08/25/17 04:48 98.5 F 60 17 157/67 H 95 08/25/17 00:00 98.4 F 65 18 132/66 99 08/24/17 23:36 66 16 97 I&O: 08/24/17 08/25/17 08/26/17 06:59 06:59 06:59 Intake Total 500 Balance 500 Result Diagrams: 08/25/17 04:26 08/25/17 04:26 Additional Labs: Accuchecks 08/25/17 08/24/17 05:53 20:40 POC Glucose 61 L 186 H Phys Exam - Physical Examination Constitutional: NAD HEENT: PERRLA, moist MMs, sclera anicteric Neck: no JVD, supple Respiratory: no wheezing, no rales, no rhonchi Cardiovascular: RRR, no significant murmur, no rub Gastrointestinal: soft, non-tender, no distention, positive bowel sounds Musculoskeletal: no edema, pulses present Neurological: non-focal, normal sensation Lymphatic: no nodes Psychiatric: normal affect, A&O x 3 Skin: no rash, normal turgor Dx/Plan (1) Acute on chronic diastolic (congestive) heart failure Code(s): I50.33 - ACUTE ON CHRONIC DIASTOLIC (CONGESTIVE) HEART FAILURE Status : Acute (2) ESRD needing dialysis Code(s): N18.6 - END STAGE RENAL DISEASE; Z99.2 - DEPENDENCE ON RENAL DIALYSIS Status: Acute (3) Elevated troponin Code(s): R74.8 - ABNORMAL LEVELS OF OTHER SERUM ENZYMES Status: Acute (4) Pneumonia Code(s): J18.9 - PNEUMONIA, UNSPECIFIED ORGANISM Status: Acute (5) Uremia Code(s): N19 - UNSPECIFIED KIDNEY FAILURE Status: Acute (6) Anemia of renal disease Code(s): D63.1 - ANEMIA IN CHRONIC KIDNEY DISEASE Status: Chronic (7) CKD (chronic kidney disease) stage 5, GFR less than 15 ml/min Code(s): N18.5 - CHRONIC KIDNEY DISEASE, STAGE 5 Status: Chronic (8) Hypertension Code(s): I10 - ESSENTIAL (PRIMARY) HYPERTENSION Status: Chronic Qualifiers: (9) Hypothyroidism Code(s): E03.9 - HYPOTHYROIDISM, UNSPECIFIED Status: Chronic Qualifiers: (10) Metabolic acidosis Code(s): E87.2 - ACIDOSIS Status: Chronic (11) Secondary hyperparathyroidism of renal origin Code(s): N25.81 - SECONDARY HYPERPARATHYROIDISM OF RENAL ORIGIN Status: Chronic (12) Type 2 diabetes mellitus Status: Chronic Qualifiers: - Plan cont current plan of care, plan discussed w/ family, continue antibiotics * continue rocephin and levaquin * medication reviewed as below * symptomatic treatment * HD decision made and today plan for dialysis access and then * continue HD as per nephro. Review of Systems - Review of Systems ENT: negative: Ear Pain, Ear Discharge, Nose Pain, Nose Discharge, Nose Congestion, Mouth Pain, Mouth Swelling, Throat Pain, Throat Swelling, Other Respiratory: negative: Cough, Dry, Shortness of Breath, Hemoptysis, SOB with Excertion, Pleuritic Pain, Sputum, Wheezing Cardiovascular: negative: chest pain, palpitations, orthopnea, paroxysmal nocturnal dyspnea, edema, light headedness, other Gastrointestinal: negative: Nausea, Vomiting, Abdominal Pain, Diarrhea, Constipation, Melena, Hematochezia, Other Genitourinary: negative: Dysuria, Frequency, Incontinence, Hematuria, Retention , Other Musculoskeletal: negative: Neck Pain, Shoulder Pain, Arm Pain, Back Pain, Hand Pain, Leg Pain, Foot Pain, Other - Medications/Allergies Allergies/Adverse Reactions: Allergies Allergy/AdvReac Type Severity Reaction Status Date / Time No Known Allergies Allergy Verified 08/12/17 14:07 Medications: Current Medications Acetaminophen (Tylenol) 650 mg PO Q4H PRN PRN Reason: Headache/Fever or Pain Hydrocodone Bitart/Acetaminophen ([place] 5/325) 1 tab PO Q4H PRN PRN Reason: Moderate Pain (4-6) Al Hydroxide/Mg Hydroxide (Maalox) 30 ml PO Q6H PRN PRN Reason: Heartburn or Indigestion Albuterol Sulfate (Proventil Hfa) 1 puff INH Q4H PRN PRN Reason: Wheezing Albuterol/Ipratropium (Duoneb) 3 ml NEB [id number] [facility] Last Admin: 08/25/17 10:10 Dose: 3 ml Amlodipine Besylate (Norvasc) 10 mg PO DAILY [facility] Last Admin: 08/25/17 09:45 Dose: Not Given Artificial Tears (Tears Naturale) 0 drop EA EYE PRN PRN PRN Reason: Dry Eyes Aspirin (Aspirin) 325 mg PO DAILY [facility] Last Admin: 08/25/17 09:45 Dose: Not Given Atorvastatin Calcium (Lipitor) 80 mg PO HS [facility] Last Admin: 08/24/17 21:06 Dose: 80 mg Carvedilol (Coreg) 25 mg PO BID [facility] Last Admin: 08/25/17 09:35 Dose: 25 mg Cefazolin Sodium (Ancef) 2 gm SLOW IVP WILLCALL [facility] Stop: 08/26/17 13:00 Clonidine (Catapres) 0.1 mg PO Q8HR [facility] Last Admin: 08/25/17 05:35 Dose: Not Given Dextrose/Water (Dextrose 50%) 25 gm SLOW IVP PRN PRN PRN Reason: Hypoglycemia Epoetin Germain (Procrit) 10,000 units IVP MoWeFr@0900 [facility] Last Admin: 08/25/17 09:45 Dose: Not Given Ferrous Sulfate (Feosol) 325 mg PO QAM-WM [facility] Last Admin: 08/25/17 09:42 Dose: Not Given Glucagon (Glucagon) 1 mg IM PRN PRN PRN Reason: Hypoglycemia Guaifenesin (Robitussin Sf) 200 mg PO Q4H PRN PRN Reason: Cough Heparin Sodium (Porcine) (Heparin) 5,000 units SC BID [facility] Last Admin: 08/25/17 09:45 Dose: Not Given Hydralazine HCl (Apresoline) 10 mg SLOW IVP Q4H PRN PRN Reason: Systolic BP > 180 Hydralazine HCl (Apresoline) 75 mg PO QID [facility] Last Admin: 08/25/17 09:49 Dose: Not Given Dextrose/Water (D5w) 1,000 mls @ 0 mls/hr IV .Q0M PRN; As Directed PRN Reason: Hypoglycemia Last Admin: 08/25/17 06:05 Dose: 1,000 mls Levofloxacin 500 mg/ Device 100 mls @ 100 mls/hr IVPB Q2DAYS@1700 [facility] Insulin Detemir 15 units/ (Miscellaneous Medication) 0.15 mls @ 0 mls/hr SC HS [facility] Last Admin: 08/24/17 21:07 Dose: 0.15 mls Insulin Detemir 20 units/ (Miscellaneous Medication) 0.2 mls @ 0 mls/hr SC QAM [facility] Last Admin: 08/25/17 10:28 Dose: Not Given Ceftriaxone Sodium 1 gm/ (Syringe 0.4 ml/ Sterile Water) 10 mls @ 120 mls/hr SLOW IVP 1830 [facility] Last Admin: 08/24/17 19:00 Dose: 10 mls Insulin Human Lispro (Humalog) 0 units SC .MODERATE SLIDING SC PRN PRN Reason: Moderate Correctional Scale Insulin Human Lispro (Humalog) 0 units SC .BEDTIME SLIDING SC PRN PRN Reason: Bedtime Correctional Scale Labetalol HCl (Normodyne) 20 mg SLOW IVP Q4H PRN PRN Reason: Systolic BP > 180 Levothyroxine Sodium (Synthroid) 100 mcg PO DAILY [facility] Last Admin: 08/25/17 09:46 Dose: Not Given Loperamide HCl (Imodium) 2 mg PO PRN PRN PRN Reason: Diarrhea/Loose Stools Loratadine (Claritin) 10 mg PO DAILYPRN PRN PRN Reason: Sinus Symptoms Magnesium Hydroxide (Milk Of Magnesium) 30 ml PO DAILYPRN PRN PRN Reason: Constipation Mineral Oil/White Petrolatum (Eucerin Cream) 0 gm TOP BIDPRN PRN PRN Reason: Dry Skin Mometasone Furoate/Formoterol Fumar (Dulera 200 Mcg/5 Mcg Inhaler) 1 puff INH BID-RT [facility] Last Admin: 08/25/17 10:19 Dose: 1 puff Nitroglycerin (Nitrostat) 0.4 mg SL Q5MIN PRN PRN Reason: Chest Pain Read Ppd Test Site 0 each PO ONE [facility] Stop: 08/26/17 09:01 Ondansetron HCl (Zofran Odt) 4 mg PO Q6H PRN PRN Reason: Nausea/Vomiting Ondansetron HCl (Zofran) 4 mg IVP Q6H PRN PRN Reason: Nausea/Vomiting Pantoprazole Sodium (Protonix) 40 mg PO 2100 [facility] Phenol (Chloraseptic [place] 180 Ml Bot) 0 ml PO PRN PRN PRN Reason: Sore Throat Senna (Senokot) 2 tab PO HSPRN PRN PRN Reason: Constipation Sodium Bicarbonate (Bicarbonate, Sodium) 325 mg PO BID [facility] Last Admin: 08/25/17 09:46 Dose: Not Given Sodium Chloride ([place] Nasal [place] 0.65%) 0 ml EA NARE QIDPRN PRN PRN Reason: Nasal Congestion Tuberculin PPD (Aplisol) 0.1 ml I-DERMAL ONE [facility] Stop: 08/27/17 21:16 Last Admin: 08/24/17 22:41 Dose: 0.1 ml Vitamin B Complex/Vit C/Folic Acid (Nephro-Paloma Tablet) 1 tab PO DAILY [facility] Last Admin: 08/25/17 09:45 Dose: Not Given
[2017-08-25] MEDS ORDERED: CEFAZOLIN/Water 2 GM/20 ML SYRINGE ONE (12:21)
[2017-08-25] MEDS ORDERED: Protamine Sulfate 50 MG/5 ML VIAL ONE (12:58)
[2017-08-25] MEDS ORDERED: Heparin 5,000 UNITS/ML VIAL ONE (12:58)
[2017-08-25] MEDS ORDERED: Heparin 0 ML ONE ×2 (12:58→13:00)
[2017-08-25] MEDS ORDERED: Lidocaine 2% PF 5 ML VIAL ONE (12:58)
[2017-08-25] MEDS ORDERED: Bupivacaine/Epinephrine 0.25% 30 ML VIAL ONE (12:58)
[2017-08-25] MEDS ORDERED: Heparin 10,000 UNITS/1 ML VIAL ONE (13:02)
[2017-08-25] MEDS ORDERED: Fentanyl 100 MCG/2 ML VIAL ONE ×3 (13:24→14:03)
[2017-08-25] MEDS ORDERED: Propofol 500 MG/50 ML VIAL ONE (13:25)
[2017-08-25] MEDS ORDERED: Lidocaine 1% (PF) 30 ML VIAL ONE (13:49)
[2017-08-25] MEDS ORDERED: Midazolam HCl 2 mg/2 ml Vial ONE ×2 (13:49→14:03)
[2017-08-25] MEDS ORDERED: PHENYLEPHRINE-NS 100 MCG/ML 10 ML SYRINGE ONE (16:32)
[2017-08-25] MEDS ORDERED: Heparin 10,000 UNITS/ 10 ML VIAL ONE (16:32)
[2017-08-25] MEDS ORDERED: ePHEDrine/0.9% NaCl/PF SYRINGE 50 mg/10 ml ONE (16:32)
[2017-08-25] MEDS ORDERED: Ondansetron HCl/PF 4 MG/2 ML Vial ONE (16:32)
[2017-08-25] MEDS ORDERED: Propofol 200 MG/20 ML VIAL ONE (16:32)
--- NOTE | 2017-08-25 16:37 | RAD ---
CHEST ONE VIEW: 08/25/17 HISTORY: Central line placement. COMPARISON: 08/24/17. FINDINGS: The cardiac silhouette is magnified, enlarged, and partially obscured by increasing left pleural flui d and bibasilar atelectasis, left greater than right. Pulmonary vasculature is more engorged. Mediastinum is midline. Tip of a left internal jugular central venous catheter projects over the righ t atrium. Tips of a right internal jugular dialysis type catheter overlie the superior vena cava. There is no evidence of pneumothorax. IMPRESSION: 1. Interval placement of bilateral internal jugular central venous catheters, as detailed above. No evidence of pneumothorax. 2. Increasing pulmonary vascular congestion and left pleural fluid. POS: [facility]
[2017-08-25] MEDS ORDERED: Bupivacaine HCl 0.5%/Epinephrine 1:200,000/PF 30 ml Vial ONE (16:48)
--- NOTE | 2017-08-25 19:33 | OP ---
DATE OF PROCEDURE: 08/25/2017 PREOPERATIVE DIAGNOSES: End-stage renal disease, poor veins by ultrasound vein mapping. POSTOPERATIVE DIAGNOSES: End-stage renal disease, poor veins by ultrasound vein mapping. PROCEDURE PERFORMED: Right IJ cuffed tunnel hemodialysis catheter, precurved angiodynamics. Left IJ central line triple lumen. Ultrasound fluoroscopy used for placement. Left upper arm exploration n oting veins to be inadequate and left upper arm dialysis graft tapered PTFE 4T07 tapered graft betwee n the brachial artery above the antecubital fossa and axillary vein. Axillary vein of good caliber a nd could be revised more proximally if necessary in the future. SURGEON: Dr. Reji Callahan. ANESTHESIA: Intravenous sedation, local 0.25% Marcaine with epinephrine 30 mL, mixed with 2% Xylocai ne, 10 mL, and left arm regional anesthesia. PROCEDURE IN DETAIL: The patient was taken to the operating room where under regional anesthesia and intravenous sedation, her neck, chest, left upper extremity was prepared with ChloraPrep, draped in routine fashion. Local anesthetic infiltrated into skin and subcutaneous tissue about the operative site for the central line placements. Using ultrasound guidance, both right and left internal jugula r vein was cannulated with trocar catheter. J-wire was threaded. Trocar catheter was removed. Skin incised and enlarged at the neck and a stab incision made over the chest, right infraclavicular area . Using the tunneling device, precurved angiodynamics cuffed tunnel hemodialysis catheter tunneled b etween the two incisions, placing the fabric cuff beneath the skin exit site over the right chest and secured the catheter with 2 interrupted sutures of 3-0 nylon. Smaller and medium sized dilators lolita dao over the J-wire into the right internal jugular vein removed. Dilator and pull-away sheath place d over the J-wire into the superior vena cava and dilator and J-wire removed. Catheter placed with p ull-away sheath. Pull-away sheath removed. Platysma approximated with 4-0 Monocryl after catheter p laced into the internal jugular vein and skin approximated with 4-0 Monocryl subdermal. Sterile dres sings applied. Each port aspirated blood and flushed with saline solution and heparinized saline sara ution 1000 units heparin per mL indicated volume of the port. Seldinger technique used to place a triple lumen catheter on the left, removed the J-wire and securin g the catheter with 2 interrupted sutures of 3-0 nylon. Biopatch and sterile dressings applied. Eac h port aspirated blood and flushed with saline solution. Fluoroscopic images revealed good line plac ements on both sides. Incision made in the proximal volar forearm longitudinally below the antecubital fossa and carried do wn through the skin and subcutaneous tissue. Antecubital vein was too small for a fistula. This was closed by approximating subcutaneous tissues with 3-0 Monocryl, skin with subdermal 4-0 Monocryl and DermaGlue applied. Incision made just above the antecubital fossa longitudinally in the left arm an d brachial artery dissected free and surrounded with Silastic vessel loop. Incision made in left axi lla, carried down through the skin and subcutaneous tissue and to the deep fascia and the axillary ve in dissected free and surrounded with Rowe Silastic vessel loops proximally and distally. Tunnel wa s created with Carie-Wick tunneler between the two incisions tapered PTFE graft 4T07 placing the 4 mm end above the antecubital fossa. The patient was given 6000 units of heparin intravenously. After adequate circulation time, the brachial artery was clamped proximally and distally and longitudinal a rteriotomy made sharply and graft tailored to configuration, and 2.5 cm anastomosis was made between the end of the 4 mm tapered graft to the brachial artery with continuous suture of 6-0 Prolene. Afte r completing anastomosis, vascular clamps were released. Good flow in the graft and clamp placed on the graft and Surgicel applied. This was then turned to the axillary vein, which was controlled prox imally and distally with Silastic vessel loops. Longitudinal venotomy made sharply. Stay sutures 6- 0 Prolene placed and likewise the graft tailored to configuration for a 3 cm anastomosis and end yue t to side axillary vein anastomosis created with continuous suture of 6-0 Prolene. After completing anastomosis, vascular arterial inflow was released. There was good flow in the graft. Venous outflo w released. The vein distended nicely. Good Doppler signal appreciated. Good hemostasis obtained w ith interrupted sutures of 6-0 Prolene, Surgicel, and the patient given 50 mg of protamine intravenou sly by Anesthesia. Good hemostasis noted. Subcutaneous tissues of all wounds approximated with inte rrupted sutures of 3-0 Monocryl, skin with subdermal 4-0 Monocryl and DermaGlue applied.
[2017-08-25] MEDS: HYDROcodone/Acetaminophen 5/325 mg Tablet PO PRN (20:19)
[2017-08-25] MEDS: Atorvastatin Calcium 40 MG TAB PO SCH (20:21)
[2017-08-25] MEDS: cefTRIAXone\\ROCEPHIN 1 GM, Syringe 0.4 ML in Sterile Water 9.6 ML SLOW IVP SCH (20:21)
[2017-08-25] MEDS: Insulin Detemir 100 UNITS/ML 15 UNITS in Pre-Filled Syringe 1 EACH SC SCH (21:35)
--- NOTE | 2017-08-25 23:09 | PRG ---
DATE OF SERVICE: 08/25/2017 SUBJECTIVE: Patient was seen and examined at bedside and overnight events noted. Patient denies any shortness of breath or chest pain or palpitation. No history of nausea or vomiting or diarrhea or f ever or chills or cramps. OBJECTIVE: GENERAL: This is a well-built female, in no apparent distress. VITAL SIGNS: Temperature 98.1, pulse 68, respiratory rate 18, blood pressure 138/65. HEENT: Atraumatic, normocephalic. Oral mucosa is moist. NECK: Supple. CARDIOVASCULAR: S1 and S2 heard. Rate and rhythm regular. RESPIRATORY: Clear to auscultation. GASTROINTESTINAL: Abdomen is soft. MUSCULOSKELETAL: No tenderness. No edema. DERMATOLOGIC: No skin rash. NEUROLOGIC: Alert and awake and oriented x3. No focal neurologic deficits. Moving all the extremit ies. PSYCHIATRIC: Mood and affect normal. LABORATORY DATA: Potassium is 4.4. BUN is 120, creatinine is 6.9. ASSESSMENT AND PLAN: 1. End-stage renal disease, started on hemodialysis. 2. Anemia. . 3. Edema, controlled. 4. Hypertension. Plan is to remove fluid with dialysis. Will obtain help from Surgery for access placement and we wi ll start dialysis once access is placed today and follow with case management for outpatient bernadine mckeon
[2017-08-26] MEDS: cloNIDine 0.1 MG TAB PO SCH ×3 (06:27→20:05)
[2017-08-26] MEDS: HYDROcodone/Acetaminophen 5/325 mg Tablet PO PRN ×3 (06:29→19:17)
[2017-08-26] MEDS: Mometasone/Formoterol 120 PUFF INHALER INH SCH ×2 (07:25→19:57)
[2017-08-26] MEDS ORDERED: READ PPD TEST SITE PO SCH (09:00)
[2017-08-26] MEDS: hydrALAZINE 25 MG TAB PO SCH ×4 (09:23→20:03)
[2017-08-26] MEDS: Aspirin 325 MG TAB PO SCH (09:23)
[2017-08-26] MEDS: Folic Acid/Vit B Comp W-C PO SCH (09:24)
[2017-08-26] MEDS: Levothyroxine Sodium 100 MCG TAB PO SCH (09:24)
[2017-08-26] MEDS: Sodium Bicarbonate Tab 325 MG TAB PO SCH ×2 (09:24→20:04)
[2017-08-26] MEDS: Carvedilol 25 MG TAB PO SCH ×2 (09:25→20:05)
[2017-08-26] MEDS: Amlodipine 10 MG TAB PO SCH (09:26)
[2017-08-26] MEDS: Ferrous Sulfate 325 MG TAB PO SCH (09:26)
[2017-08-26] MEDS: Insulin Detemir 100 UNITS/ML 20 UNITS in Pre-Filled Syringe 1 EACH SC SCH ×2 (09:27→09:34)
[2017-08-26] MEDS: Heparin 5,000 UNITS/ML VIAL SC SCH ×2 (09:27→20:03)
--- NOTE | 2017-08-26 10:12 | PDOC.PN ---
- Subjective Encounter Start Date: 08/26/17 Encounter Start Time: 08:40 Patient seen and examined. No new complaints. No overnight events - Objective MAR Reviewed: Yes Vital Signs & Weight: Vital Signs (12 hours) Temp Pulse Resp BP BP Pulse Ox 08/26/17 09:26 79 136/69 08/26/17 09:23 79 136/69 08/26/17 07:50 98.5 F 79 18 136/69 94 L 08/26/17 07:24 72 14 94 L 08/26/17 06:27 157/68 H 08/26/17 04:40 98.5 F 83 17 157/68 H 94 L 08/26/17 00:11 98.4 F 80 18 160/65 H 95 I&O: 08/25/17 08/26/17 08/27/17 06:59 06:59 06:59 Intake Total 500 500 Balance 500 500 Result Diagrams: 08/25/17 04:26 08/25/17 04:26 Additional Labs: Accuchecks 08/26/17 08/25/17 08/25/17 06:15 20:32 10:02 POC Glucose 116 H 150 H 111 H Phys Exam - Physical Examination Constitutional: NAD HEENT: PERRLA, moist MMs, sclera anicteric Neck: no JVD, supple central line, tunneled HD catheter, Respiratory: no wheezing, no rales, no rhonchi Cardiovascular: RRR, no significant murmur, no rub Gastrointestinal: soft, non-tender, no distention, positive bowel sounds Musculoskeletal: no edema, pulses present Neurological: non-focal, normal sensation, moves all 4 limbs Lymphatic: no nodes Psychiatric: normal affect, A&O x 3 Skin: no rash, normal turgor Dx/Plan (1) Acute on chronic diastolic (congestive) heart failure Code(s): I50.33 - ACUTE ON CHRONIC DIASTOLIC (CONGESTIVE) HEART FAILURE Status : Acute (2) ESRD needing dialysis Code(s): N18.6 - END STAGE RENAL DISEASE; Z99.2 - DEPENDENCE ON RENAL DIALYSIS Status: Acute (3) Elevated troponin Code(s): R74.8 - ABNORMAL LEVELS OF OTHER SERUM ENZYMES Status: Acute (4) Pneumonia Code(s): J18.9 - PNEUMONIA, UNSPECIFIED ORGANISM Status: Acute (5) Uremia Code(s): N19 - UNSPECIFIED KIDNEY FAILURE Status: Acute (6) Anemia of renal disease Code(s): D63.1 - ANEMIA IN CHRONIC KIDNEY DISEASE Status: Chronic (7) CKD (chronic kidney disease) stage 5, GFR less than 15 ml/min Code(s): N18.5 - CHRONIC KIDNEY DISEASE, STAGE 5 Status: Chronic (8) Hypertension Code(s): I10 - ESSENTIAL (PRIMARY) HYPERTENSION Status: Chronic Qualifiers: (9) Hypothyroidism Code(s): E03.9 - HYPOTHYROIDISM, UNSPECIFIED Status: Chronic Qualifiers: (10) Metabolic acidosis Code(s): E87.2 - ACIDOSIS Status: Chronic (11) Secondary hyperparathyroidism of renal origin Code(s): N25.81 - SECONDARY HYPERPARATHYROIDISM OF RENAL ORIGIN Status: Chronic (12) Type 2 diabetes mellitus Status: Chronic Qualifiers: - Plan cont current plan of care, plan discussed w/ family * continue HD as per nephrology * continue levaquin and rocephin * tomorrow will repeat labs, if Hb low, will consider transfusion with HD * medication reviewed as below * symptomatic treatment * discussed with family bedside * social work to arrange outpt HD. Review of Systems - Review of Systems ENT: negative: Ear Pain, Ear Discharge, Nose Pain, Nose Discharge, Nose Congestion, Mouth Pain, Mouth Swelling, Throat Pain, Throat Swelling, Other Respiratory: negative: Cough, Dry, Shortness of Breath, Hemoptysis, SOB with Excertion, Pleuritic Pain, Sputum, Wheezing Cardiovascular: negative: chest pain, palpitations, orthopnea, paroxysmal nocturnal dyspnea, edema, light headedness, other Gastrointestinal: negative: Nausea, Vomiting, Abdominal Pain, Diarrhea, Constipation, Melena, Hematochezia, Other Genitourinary: negative: Dysuria, Frequency, Incontinence, Hematuria, Retention , Other Musculoskeletal: negative: Neck Pain, Shoulder Pain, Arm Pain, Back Pain, Hand Pain, Leg Pain, Foot Pain, Other - Medications/Allergies Allergies/Adverse Reactions: Allergies Allergy/AdvReac Type Severity Reaction Status Date / Time No Known Allergies Allergy Verified 08/12/17 14:07 Medications: Current Medications Acetaminophen (Tylenol) 650 mg PO Q4H PRN PRN Reason: Headache/Fever or Pain Hydrocodone Bitart/Acetaminophen ([place] 5/325) 1 tab PO Q4H PRN PRN Reason: Moderate Pain (4-6) Last Admin: 08/26/17 06:29 Dose: 1 tab Al Hydroxide/Mg Hydroxide (Maalox) 30 ml PO Q6H PRN PRN Reason: Heartburn or Indigestion Albuterol Sulfate (Proventil Hfa) 1 puff INH Q4H PRN PRN Reason: Wheezing Albuterol/Ipratropium (Duoneb) 3 ml NEB [id number] [facility] Last Admin: 08/26/17 07:24 Dose: 3 ml Amlodipine Besylate (Norvasc) 10 mg PO DAILY [facility] Last Admin: 08/26/17 09:26 Dose: 10 mg Artificial Tears (Tears Naturale) 0 drop EA EYE PRN PRN PRN Reason: Dry Eyes Aspirin (Aspirin) 325 mg PO DAILY [facility] Last Admin: 08/26/17 09:23 Dose: 325 mg Atorvastatin Calcium (Lipitor) 80 mg PO HS [facility] Last Admin: 08/25/17 20:21 Dose: 80 mg Carvedilol (Coreg) 25 mg PO BID [facility] Last Admin: 08/26/17 09:25 Dose: 25 mg Cefazolin Sodium (Ancef) 2 gm SLOW IVP WILLCALL [facility] Stop: 08/26/17 13:00 Clonidine (Catapres) 0.1 mg PO Q8HR [facility] Last Admin: 08/26/17 06:27 Dose: 0.1 mg Dextrose/Water (Dextrose 50%) 25 gm SLOW IVP PRN PRN PRN Reason: Hypoglycemia Epoetin Germain (Procrit) 10,000 units IVP MoWeFr@0900 [facility] Last Admin: 08/25/17 09:45 Dose: Not Given Ferrous Sulfate (Feosol) 325 mg PO QAM-WM [facility] Last Admin: 08/26/17 09:26 Dose: 325 mg Glucagon (Glucagon) 1 mg IM PRN PRN PRN Reason: Hypoglycemia Guaifenesin (Robitussin Sf) 200 mg PO Q4H PRN PRN Reason: Cough Heparin Sodium (Porcine) (Heparin) 5,000 units SC BID [facility] Last Admin: 08/26/17 09:27 Dose: 5,000 units Hydralazine HCl (Apresoline) 10 mg SLOW IVP Q4H PRN PRN Reason: Systolic BP > 180 Hydralazine HCl (Apresoline) 75 mg PO QID [facility] Last Admin: 08/26/17 09:23 Dose: 75 mg Dextrose/Water (D5w) 1,000 mls @ 0 mls/hr IV .Q0M PRN; As Directed PRN Reason: Hypoglycemia Last Admin: 08/25/17 06:05 Dose: 1,000 mls Levofloxacin 500 mg/ Device 100 mls @ 100 mls/hr IVPB Q2DAYS@1700 [facility] Insulin Detemir 15 units/ (Miscellaneous Medication) 0.15 mls @ 0 mls/hr SC HS [facility] Last Admin: 08/25/17 21:35 Dose: Not Given Insulin Detemir 20 units/ (Miscellaneous Medication) 0.2 mls @ 0 mls/hr SC QAM [facility] Last Admin: 08/26/17 09:34 Dose: Not Given Ceftriaxone Sodium 1 gm/ (Syringe 0.4 ml/ Sterile Water) 10 mls @ 120 mls/hr SLOW IVP 1830 [facility] Last Admin: 08/25/17 20:21 Dose: 10 mls Insulin Human Lispro (Humalog) 0 units SC .MODERATE SLIDING SC PRN PRN Reason: Moderate Correctional Scale Insulin Human Lispro (Humalog) 0 units SC .BEDTIME SLIDING SC PRN PRN Reason: Bedtime Correctional Scale Labetalol HCl (Normodyne) 20 mg SLOW IVP Q4H PRN PRN Reason: Systolic BP > 180 Levothyroxine Sodium (Synthroid) 100 mcg PO DAILY [facility] Last Admin: 08/26/17 09:24 Dose: 100 mcg Loperamide HCl (Imodium) 2 mg PO PRN PRN PRN Reason: Diarrhea/Loose Stools Loratadine (Claritin) 10 mg PO DAILYPRN PRN PRN Reason: Sinus Symptoms Magnesium Hydroxide (Milk Of Magnesium) 30 ml PO DAILYPRN PRN PRN Reason: Constipation Mineral Oil/White Petrolatum (Eucerin Cream) 0 gm TOP BIDPRN PRN PRN Reason: Dry Skin Mometasone Furoate/Formoterol Fumar (Dulera 200 Mcg/5 Mcg Inhaler) 1 puff INH BID-RT [facility] Last Admin: 08/26/17 07:25 Dose: 1 puff Nitroglycerin (Nitrostat) 0.4 mg SL Q5MIN PRN PRN Reason: Chest Pain Ondansetron HCl (Zofran Odt) 4 mg PO Q6H PRN PRN Reason: Nausea/Vomiting Ondansetron HCl (Zofran) 4 mg IVP Q6H PRN PRN Reason: Nausea/Vomiting Pantoprazole Sodium (Protonix) 40 mg PO 2100 [facility] Last Admin: 08/25/17 20:21 Dose: 40 mg Phenol (Chloraseptic [place] 180 Ml Bot) 0 ml PO PRN PRN PRN Reason: Sore Throat Senna (Senokot) 2 tab PO HSPRN PRN PRN Reason: Constipation Sodium Bicarbonate (Bicarbonate, Sodium) 325 mg PO BID [facility] Last Admin: 08/26/17 09:24 Dose: 325 mg Sodium Chloride ([place] Nasal [place] 0.65%) 0 ml EA NARE QIDPRN PRN PRN Reason: Nasal Congestion Tramadol HCl (Ultram) 50 mg PO Q8H PRN PRN Reason: PAIN 4-6 Tuberculin PPD (Aplisol) 0.1 ml I-DERMAL ONE [facility] Stop: 08/27/17 21:16 Last Admin: 08/24/17 22:41 Dose: 0.1 ml Vitamin B Complex/Vit C/Folic Acid (Nephro-[place]oma Tablet) 1 tab PO DAILY [facility] Last Admin: 08/26/17 09:24 Dose: 1 tab
[2017-08-26] MEDS: HumaLOG 300 UNITS/3 ML VIAL SC PRN (13:23)
--- NOTE | 2017-08-26 16:46 | PRG ---
DATE OF SERVICE: 08/26/2017 Genie Sue is doing well today. Her left hand function is good. Left arm graft has good thrill and bruit. Surgical wounds look good. At this point, I will see her as needed. She should follow up i n my office in 2-3 weeks. They should continue to use her dialysis catheter for dialysis still I see her in two to three weeks at which time I will evaluate her wounds and graft and communicated with [facility] when they can start accessing it. Her central line should be removed prior to dischar ge. I will see her as needed this hospitalization. Please call if needed.
[2017-08-26] MEDS: cefTRIAXone\\ROCEPHIN 1 GM, Syringe 0.4 ML in Sterile Water 9.6 ML SLOW IVP SCH (20:02)
[2017-08-26] MEDS: Atorvastatin Calcium 40 MG TAB PO SCH (20:04)
[2017-08-26] MEDS: Insulin Detemir 100 UNITS/ML 15 UNITS in Pre-Filled Syringe 1 EACH SC SCH (20:05)
--- NOTE | 2017-08-26 23:17 | PRG ---
DATE OF SERVICE: 08/26/2017 SUBJECTIVE: Patient was seen and examined at bedside and overnight events noted. Patient denies any shortness of breath or chest pain or palpitation. No history of nausea or vomiting or diarrhea or fever or chills or cramps. OBJECTIVE: GENERAL: This is a well-built female in no apparent distress. VITAL SIGNS: Temperature 97, pulse 60, respiratory rate 18, blood pressure 136/ 69. HEENT: Atraumatic, normocephalic. Oral mucosa is moist. NECK: Supple. CARDIOVASCULAR: S1, S2 heard. Rate and rhythm regular. RESPIRATORY: Clear to auscultation. GASTROINTESTINAL: Abdomen is soft. MUSCULOSKELETAL: No tenderness. No edema. DERMATOLOGIC: No skin rash. NEUROLOGIC: Alert and awake and oriented x3. No focal neurologic deficits. Moving all the extremities. PSYCHIATRIC: Mood and affect normal. ASSESSMENT AND PLAN: 1. End-stage renal disease, started on hemodialysis during this admission and will continue dialysis as tolerated. 2. Anemia of ESRD 3. Edema 4. Hypertension - controlled. . Plan is to continue on dialysis as tolerated. We will have 3 hours of dialysis today and continue on dialysis as tolerated. Follow with case management for outpatient placement. CRISTY
[2017-08-27 05:01] LABS: #Eosinphils 0.2 thou/uL (0.0-0.7); #Lymphocytes 1.1 thou/uL (1.20-3.40); #Monocytes 0.9 thou/uL (0.11-0.59); #Neutrophils 6.1 thou/uL (1.40-6.50); %Basophils 0.5 % (0.0-1.0); %Eosinophils 2.1 % (0.0-10.0); %Monocytes 11.3 % (0.0-10.0); %Neutrophils 73.2 % (42.0-75.0); Hemoglobin 5.8 g/dL (12.0-16.0); Mean Corpuscular HGB CONC 31.8 g/dL (32.0-36.0); Mean Corpuscular Hemoglobin 26.8 pg (27.0-31.0); Mean Corpuscular Volume 84.3 fl (81.0-99.0); Mean Platelet Volume 5.8 fL (7.4-10.4); Platelet Count 382 thou/uL (130-400); RBC Distribution Width 14.1 % (11.5-14.5); Red Blood Cell (RBC) Count 2.16 mill/uL (4.20-5.40); White Blood Cell (WBC) Count 8.3 thou/uL (4.8-10.8)
[2017-08-27 05:10] LABS: Albumin 2.5 g/dL (3.4-4.8); Anion Gap 13 mmol/L (10-20); BUN (Urea Nitrogen) 29 mg/dL (9.8-20.1); BUN/Creatinine Ratio 7.61; Calc. Creatinine Clearance 15 mL/min (70-130); Calcium 8.7 mg/dL (7.8-10.44); Carbon Dioxide 29 mmol/L (23-31); Chloride 98 mmol/L (98-107); Estimated GFR-MDRD 14; Glucose 130 mg/dL (80-115); Phosphorus 3.9 mg/dL (2.3-4.7); Sodium 136 mmol/L (136-145)
[2017-08-27] MEDS: cloNIDine 0.1 MG TAB PO SCH ×3 (05:36→21:01)
[2017-08-27] MEDS: Mometasone/Formoterol 120 PUFF INHALER INH SCH ×2 (06:50→20:03)
[2017-08-27] MEDS: Heparin 5,000 UNITS/ML VIAL SC SCH ×2 (08:27→21:04)
[2017-08-27] MEDS: Carvedilol 25 MG TAB PO SCH ×2 (08:28→21:02)
[2017-08-27] MEDS: Folic Acid/Vit B Comp W-C PO SCH (08:28)
[2017-08-27] MEDS: Sodium Bicarbonate Tab 325 MG TAB PO SCH ×2 (08:28→21:01)
[2017-08-27] MEDS: Levothyroxine Sodium 100 MCG TAB PO SCH (08:28)
[2017-08-27] MEDS: Ferrous Sulfate 325 MG TAB PO SCH (08:28)
[2017-08-27] MEDS: Aspirin 325 MG TAB PO SCH (08:28)
[2017-08-27] MEDS: hydrALAZINE 25 MG TAB PO SCH ×4 (08:37→20:51)
[2017-08-27] MEDS: Amlodipine 10 MG TAB PO SCH (08:38)
--- NOTE | 2017-08-27 09:57 | PRG ---
DATE OF SERVICE: 08/27/2017 SUBJECTIVE: Patient was seen and examined at bedside and overnight events noted. Patient denies any shortness of breath or chest pain or palpitation. No history of nausea or vomiting or diarrhea or f ever or chills or cramps. OBJECTIVE: GENERAL: This is an elderly female in no apparent distress. VITAL SIGNS: Temperature 97.8, pulse 77, respiratory rate 16, blood pressure 182/71. HEENT: Atraumatic, normocephalic. Oral mucosa is moist. NECK: Supple. CARDIOVASCULAR: S1, S2 heard. Rate and rhythm regular. RESPIRATORY: Clear to auscultation. GASTROINTESTINAL: Abdomen is soft. MUSCULOSKELETAL: No tenderness. No edema. DERMATOLOGIC: No skin rash. NEUROLOGIC: Alert and awake and oriented x3. No focal neurologic deficits. Moving all the extremiti es. PSYCHIATRIC: Mood and affect normal. LABORATORY DATA: Hemoglobin is 5.8, potassium is 4.0, BUN 29, creatinine is 3.8. ASSESSMENT AND PLAN: 1. End-stage renal disease, started on hemodialysis. Follow with case management for outpatient [employer]. 2. Anemia, severe. We will have blood transfusion today with dialysis. No clearance today. We eduardo l continue on ultrafiltration. 3. Edema controlled. 4. Hypertension. Continue home medications. Plan is to continue on dialysis, we will transfuse 2 units of blood with dialysis today. Case discus sed with Dr. Rawls.
--- NOTE | 2017-08-27 11:53 | PDOC.PN ---
- Subjective Encounter Start Date: 08/27/17 Encounter Start Time: 08:00 Patient seen and examined. No new complaints. No overnight events - Objective MAR Reviewed: Yes Vital Signs & Weight: Vital Signs (12 hours) Temp Pulse Pulse Resp BP BP BP 08/27/17 11:45 98.9 F 68 16 171/50 H 08/27/17 08:38 77 182/76 H 08/27/17 08:37 77 182/76 H 08/27/17 08:00 97.8 F 77 16 182/71 H 08/27/17 06:50 71 16 08/27/17 06:48 71 16 08/27/17 05:36 125/67 08/27/17 04:35 98.2 F 71 16 126/62 08/27/17 01:13 73 14 08/27/17 00:08 98.4 F 77 16 134/51 L Pulse Ox 08/27/17 11:45 97 08/27/17 08:38 08/27/17 08:37 08/27/17 08:00 93 L 08/27/17 06:50 94 L 08/27/17 06:48 94 L 08/27/17 05:36 08/27/17 04:35 93 L 08/27/17 01:13 93 L 08/27/17 00:08 93 L I&O: 08/26/17 08/27/17 08/28/17 06:59 06:59 06:59 Intake Total 500 650 0 Balance 500 650 0 Result Diagrams: 08/27/17 04:25 08/27/17 04:25 Additional Labs: Accuchecks 08/26/17 08/26/17 08/26/17 21:01 17:33 11:42 POC Glucose 170 H 121 H 204 H Phys Exam - Physical Examination Constitutional: NAD HEENT: PERRLA, moist MMs, sclera anicteric Neck: no JVD, supple Respiratory: no wheezing, no rales, no rhonchi Cardiovascular: RRR, no significant murmur, no rub Gastrointestinal: soft, non-tender, no distention, positive bowel sounds Musculoskeletal: no edema, pulses present Neurological: non-focal Lymphatic: no nodes Psychiatric: normal affect Skin: no rash, normal turgor Dx/Plan (1) Acute on chronic diastolic (congestive) heart failure Code(s): I50.33 - ACUTE ON CHRONIC DIASTOLIC (CONGESTIVE) HEART FAILURE Status : Acute (2) ESRD needing dialysis Code(s): N18.6 - END STAGE RENAL DISEASE; Z99.2 - DEPENDENCE ON RENAL DIALYSIS Status: Acute (3) Elevated troponin Code(s): R74.8 - ABNORMAL LEVELS OF OTHER SERUM ENZYMES Status: Acute (4) Pneumonia Code(s): J18.9 - PNEUMONIA, UNSPECIFIED ORGANISM Status: Acute (5) Uremia Code(s): N19 - UNSPECIFIED KIDNEY FAILURE Status: Acute (6) Anemia of renal disease Code(s): D63.1 - ANEMIA IN CHRONIC KIDNEY DISEASE Status: Chronic (7) CKD (chronic kidney disease) stage 5, GFR less than 15 ml/min Code(s): N18.5 - CHRONIC KIDNEY DISEASE, STAGE 5 Status: Chronic (8) Hypertension Code(s): I10 - ESSENTIAL (PRIMARY) HYPERTENSION Status: Chronic Qualifiers: (9) Hypothyroidism Code(s): E03.9 - HYPOTHYROIDISM, UNSPECIFIED Status: Chronic Qualifiers: (10) Metabolic acidosis Code(s): E87.2 - ACIDOSIS Status: Chronic (11) Secondary hyperparathyroidism of renal origin Code(s): N25.81 - SECONDARY HYPERPARATHYROIDISM OF RENAL ORIGIN Status: Chronic (12) Type 2 diabetes mellitus Status: Chronic Qualifiers: - Plan cont current plan of care * today will transfuse 2 unit PRBC with HD * continue procrit * consult hematology for evaluation * social work for outpt HD arrangement * medication reviewed as below * symptomatic treatment * HD as per nephrology. Review of Systems - Review of Systems ENT: negative: Ear Pain, Ear Discharge, Nose Pain, Nose Discharge, Nose Congestion, Mouth Pain, Mouth Swelling, Throat Pain, Throat Swelling, Other Respiratory: negative: Cough, Dry, Shortness of Breath, Hemoptysis, SOB with Excertion, Pleuritic Pain, Sputum, Wheezing Cardiovascular: negative: chest pain, palpitations, orthopnea, paroxysmal nocturnal dyspnea, edema, light headedness, other Gastrointestinal: negative: Nausea, Vomiting, Abdominal Pain, Diarrhea, Constipation, Melena, Hematochezia, Other Genitourinary: negative: Dysuria, Frequency, Incontinence, Hematuria, Retention , Other Musculoskeletal: negative: Neck Pain, Shoulder Pain, Arm Pain, Back Pain, Hand Pain, Leg Pain, Foot Pain, Other - Medications/Allergies Allergies/Adverse Reactions: Allergies Allergy/AdvReac Type Severity Reaction Status Date / Time No Known Allergies Allergy Verified 08/12/17 14:07 Medications: Current Medications Acetaminophen (Tylenol) 650 mg PO Q4H PRN PRN Reason: Headache/Fever or Pain Hydrocodone Bitart/Acetaminophen ([place] 5/325) 1 tab PO Q4H PRN PRN Reason: Moderate Pain (4-6) Last Admin: 08/26/17 19:17 Dose: 1 tab Al Hydroxide/Mg Hydroxide (Maalox) 30 ml PO Q6H PRN PRN Reason: Heartburn or Indigestion Albuterol Sulfate (Proventil Hfa) 1 puff INH Q4H PRN PRN Reason: Wheezing Albuterol/Ipratropium (Duoneb) 3 ml NEB [id number] [facility] Last Admin: 08/27/17 06:48 Dose: 3 ml Amlodipine Besylate (Norvasc) 10 mg PO DAILY [facility] Last Admin: 08/27/17 08:38 Dose: 10 mg Artificial Tears (Tears Naturale) 0 drop EA EYE PRN PRN PRN Reason: Dry Eyes Aspirin (Aspirin) 325 mg PO DAILY [facility] Last Admin: 08/27/17 08:28 Dose: 325 mg Atorvastatin Calcium (Lipitor) 80 mg PO HS [facility] Last Admin: 08/26/17 20:04 Dose: 80 mg Carvedilol (Coreg) 25 mg PO BID [facility] Last Admin: 08/27/17 08:28 Dose: 25 mg Clonidine (Catapres) 0.1 mg PO Q8HR [facility] Last Admin: 08/27/17 05:36 Dose: Not Given Dextrose/Water (Dextrose 50%) 25 gm SLOW IVP PRN PRN PRN Reason: Hypoglycemia Epoetin Germain (Procrit) 10,000 units IVP MoWeFr@0900 [facility] Last Admin: 08/25/17 09:45 Dose: Not Given Ferrous Sulfate (Feosol) 325 mg PO QAM-WM [facility] Last Admin: 08/27/17 08:28 Dose: 325 mg Glucagon (Glucagon) 1 mg IM PRN PRN PRN Reason: Hypoglycemia Guaifenesin (Robitussin Sf) 200 mg PO Q4H PRN PRN Reason: Cough Heparin Sodium (Porcine) (Heparin) 5,000 units SC BID [facility] Last Admin: 08/27/17 08:27 Dose: 5,000 units Hydralazine HCl (Apresoline) 10 mg SLOW IVP Q4H PRN PRN Reason: Systolic BP > 180 Hydralazine HCl (Apresoline) 75 mg PO QID [facility] Last Admin: 08/27/17 08:37 Dose: 75 mg Dextrose/Water (D5w) 1,000 mls @ 0 mls/hr IV .Q0M PRN; As Directed PRN Reason: Hypoglycemia Last Admin: 08/25/17 06:05 Dose: 1,000 mls Levofloxacin 500 mg/ Device 100 mls @ 100 mls/hr IVPB Q2DAYS@1700 [facility] Last Admin: 08/26/17 20:03 Dose: 100 mls Insulin Detemir 15 units/ (Miscellaneous Medication) 0.15 mls @ 0 mls/hr SC HS [facility] Last Admin: 08/26/17 20:05 Dose: Not Given Insulin Detemir 20 units/ (Miscellaneous Medication) 0.2 mls @ 0 mls/hr SC QAM [facility] Last Admin: 08/26/17 09:34 Dose: Not Given Ceftriaxone Sodium 1 gm/ (Syringe 0.4 ml/ Sterile Water) 10 mls @ 120 mls/hr SLOW IVP 1830 [facility] Last Admin: 08/26/17 20:02 Dose: 10 mls Insulin Human Lispro (Humalog) 0 units SC .MODERATE SLIDING SC PRN PRN Reason: Moderate Correctional Scale Last Admin: 08/26/17 13:23 Dose: 4 unit Insulin Human Lispro (Humalog) 0 units SC .BEDTIME SLIDING SC PRN PRN Reason: Bedtime Correctional Scale Labetalol HCl (Normodyne) 20 mg SLOW IVP Q4H PRN PRN Reason: Systolic BP > 180 Levothyroxine Sodium (Synthroid) 100 mcg PO DAILY [facility] Last Admin: 08/27/17 08:28 Dose: 100 mcg Loperamide HCl (Imodium) 2 mg PO PRN PRN PRN Reason: Diarrhea/Loose Stools Loratadine (Claritin) 10 mg PO DAILYPRN PRN PRN Reason: Sinus Symptoms Magnesium Hydroxide (Milk Of Magnesium) 30 ml PO DAILYPRN PRN PRN Reason: Constipation Mineral Oil/White Petrolatum (Eucerin Cream) 0 gm TOP BIDPRN PRN PRN Reason: Dry Skin Mometasone Furoate/Formoterol Fumar (Dulera 200 Mcg/5 Mcg Inhaler) 1 puff INH BID-RT [facility] Last Admin: 08/27/17 06:50 Dose: 1 puff Nitroglycerin (Nitrostat) 0.4 mg SL Q5MIN PRN PRN Reason: Chest Pain Ondansetron HCl (Zofran Odt) 4 mg PO Q6H PRN PRN Reason: Nausea/Vomiting Ondansetron HCl (Zofran) 4 mg IVP Q6H PRN PRN Reason: Nausea/Vomiting Pantoprazole Sodium (Protonix) 40 mg PO 2100 [facility] Last Admin: 08/26/17 20:04 Dose: 40 mg Phenol (Chloraseptic [place] 180 Ml Bot) 0 ml PO PRN PRN PRN Reason: Sore Throat Senna (Senokot) 2 tab PO HSPRN PRN PRN Reason: Constipation Sodium Bicarbonate (Bicarbonate, Sodium) 325 mg PO BID [facility] Last Admin: 08/27/17 08:28 Dose: 325 mg Sodium Chloride ([place] Nasal [place] 0.65%) 0 ml EA NARE QIDPRN PRN PRN Reason: Nasal Congestion Tramadol HCl (Ultram) 50 mg PO Q8H PRN PRN Reason: PAIN 4-6 Tuberculin PPD (Aplisol) 0.1 ml I-DERMAL ONE [facility] Stop: 08/27/17 21:16 Last Admin: 08/24/17 22:41 Dose: 0.1 ml Vitamin B Complex/Vit C/Folic Acid (Nephro-[place] Tablet) 1 tab PO DAILY [facility] Last Admin: 08/27/17 08:28 Dose: 1 tab
[2017-08-27] MEDS ORDERED: Heparin 10,000 UNITS/ 10 ML VIAL ONE (13:52)
[2017-08-27] MEDS: Insulin Detemir 100 UNITS/ML 20 UNITS in Pre-Filled Syringe 1 EACH SC SCH (15:44)
[2017-08-27] MEDS: Epoetin (ESRD) 10,000 UNITS/ML VIAL IVP SCH (15:49)
[2017-08-27] MEDS: cefTRIAXone\\ROCEPHIN 1 GM, Syringe 0.4 ML in Sterile Water 9.6 ML SLOW IVP SCH (18:12)
[2017-08-27] MEDS: HumaLOG 300 UNITS/3 ML VIAL SC PRN (18:12)
[2017-08-27] MEDS: Atorvastatin Calcium 40 MG TAB PO SCH (21:00)
[2017-08-27] MEDS: Insulin Detemir 100 UNITS/ML 15 UNITS in Pre-Filled Syringe 1 EACH SC SCH (21:04)
[2017-08-28 04:57] LABS: #Basophils 0.1 thou/uL (0.0-0.2); #Eosinphils 0.3 thou/uL (0.0-0.7); #Lymphocytes 1.2 thou/uL (1.20-3.40); #Monocytes 0.8 thou/uL (0.11-0.59); #Neutrophils 7.9 thou/uL (1.40-6.50); %Basophils 0.6 % (0.0-1.0); %Eosinophils 3.1 % (0.0-10.0); %Lymphocytes 11.3 % (21.0-51.0); %Monocytes 7.4 % (0.0-10.0); %Neutrophils 77.5 % (42.0-75.0); Hemoglobin 7.8 g/dL (12.0-16.0); Mean Corpuscular HGB CONC 32.4 g/dL (32.0-36.0); Mean Corpuscular Hemoglobin 27.4 pg (27.0-31.0); Mean Corpuscular Volume 84.7 fl (81.0-99.0); Mean Platelet Volume 5.7 fL (7.4-10.4); Platelet Count 346 thou/uL (130-400); RBC Distribution Width 13.7 % (11.5-14.5); Red Blood Cell (RBC) Count 2.84 mill/uL (4.20-5.40); White Blood Cell (WBC) Count 10.2 thou/uL (4.8-10.8)
[2017-08-28 05:02] LABS: Albumin 2.5 g/dL (3.4-4.8); Anion Gap 13 mmol/L (10-20); BUN (Urea Nitrogen) 39 mg/dL (9.8-20.1); BUN/Creatinine Ratio 7.01; Calc. Creatinine Clearance 10 mL/min (70-130); Calcium 8.6 mg/dL (7.8-10.44); Carbon Dioxide 27 mmol/L (23-31); Chloride 98 mmol/L (98-107); Estimated GFR-MDRD 9; Glucose 159 mg/dL (80-115); Phosphorus 3.8 mg/dL (2.3-4.7); Potassium 3.7 mmol/L (3.5-5.1); Sodium 134 mmol/L (136-145)
[2017-08-28] MEDS: cloNIDine 0.1 MG TAB PO SCH ×3 (05:09→22:31)
[2017-08-28] MEDS: HumaLOG 300 UNITS/3 ML VIAL SC PRN ×2 (06:25→13:05)
[2017-08-28] MEDS: Mometasone/Formoterol 120 PUFF INHALER INH SCH ×2 (07:39→18:52)
[2017-08-28] MEDS: Ferrous Sulfate 325 MG TAB PO SCH (08:03)
[2017-08-28] MEDS: Folic Acid/Vit B Comp W-C PO SCH (08:04)
[2017-08-28] MEDS: Aspirin 325 MG TAB PO SCH (08:04)
[2017-08-28] MEDS: Sodium Bicarbonate Tab 325 MG TAB PO SCH ×2 (08:04→22:31)
[2017-08-28] MEDS: hydrALAZINE 25 MG TAB PO SCH ×4 (08:04→22:30)
[2017-08-28] MEDS: Carvedilol 25 MG TAB PO SCH ×2 (08:05→22:31)
[2017-08-28] MEDS: Heparin 5,000 UNITS/ML VIAL SC SCH ×2 (08:05→22:29)
[2017-08-28] MEDS: Amlodipine 10 MG TAB PO SCH (08:05)
[2017-08-28] MEDS: Levothyroxine Sodium 100 MCG TAB PO SCH (08:05)
[2017-08-28] MEDS: Insulin Detemir 100 UNITS/ML 20 UNITS in Pre-Filled Syringe 1 EACH SC SCH (08:06)
--- NOTE | 2017-08-28 11:18 | PDOC.PN ---
- Subjective Encounter Start Date: 08/28/17 Encounter Start Time: 08:20 Patient seen and examined. No new complaints. No overnight events - Objective MAR Reviewed: Yes Vital Signs & Weight: Vital Signs (12 hours) Temp Pulse Resp BP BP Pulse Ox 08/28/17 09:02 98.3 F 64 16 137/73 97 08/28/17 08:05 70 132/65 08/28/17 08:04 70 132/65 08/28/17 07:38 70 16 93 L 08/28/17 05:09 132/65 08/28/17 04:00 98.3 F 69 16 132/65 93 L 08/28/17 00:43 94 L 08/28/17 00:00 98.5 F 69 16 135/68 95 I&O: 08/27/17 08/28/17 08/29/17 06:59 06:59 06:59 Intake Total 650 1420 Balance 650 1420 Result Diagrams: 08/28/17 04:35 08/28/17 04:35 Additional Labs: Accuchecks 08/28/17 08/27/17 08/27/17 05:35 21:03 16:09 POC Glucose 152 H 119 H 227 H 08/27/17 05:44 POC Glucose 143 H Phys Exam - Physical Examination Constitutional: NAD HEENT: PERRLA, moist MMs, sclera anicteric Neck: no JVD, supple Respiratory: no wheezing, no rales, no rhonchi Cardiovascular: RRR, no significant murmur, no rub Gastrointestinal: soft, non-tender, no distention, positive bowel sounds Musculoskeletal: no edema, pulses present Neurological: non-focal, normal sensation Lymphatic: no nodes Psychiatric: normal affect, A&O x 3 Skin: no rash, normal turgor Dx/Plan (1) Acute on chronic diastolic (congestive) heart failure Code(s): I50.33 - ACUTE ON CHRONIC DIASTOLIC (CONGESTIVE) HEART FAILURE Status : Acute (2) ESRD needing dialysis Code(s): N18.6 - END STAGE RENAL DISEASE; Z99.2 - DEPENDENCE ON RENAL DIALYSIS Status: Acute (3) Elevated troponin Code(s): R74.8 - ABNORMAL LEVELS OF OTHER SERUM ENZYMES Status: Acute (4) Pneumonia Code(s): J18.9 - PNEUMONIA, UNSPECIFIED ORGANISM Status: Acute (5) Uremia Code(s): N19 - UNSPECIFIED KIDNEY FAILURE Status: Acute (6) Anemia of renal disease Code(s): D63.1 - ANEMIA IN CHRONIC KIDNEY DISEASE Status: Chronic (7) CKD (chronic kidney disease) stage 5, GFR less than 15 ml/min Code(s): N18.5 - CHRONIC KIDNEY DISEASE, STAGE 5 Status: Chronic (8) Hypertension Code(s): I10 - ESSENTIAL (PRIMARY) HYPERTENSION Status: Chronic Qualifiers: (9) Hypothyroidism Code(s): E03.9 - HYPOTHYROIDISM, UNSPECIFIED Status: Chronic Qualifiers: (10) Metabolic acidosis Code(s): E87.2 - ACIDOSIS Status: Chronic (11) Secondary hyperparathyroidism of renal origin Code(s): N25.81 - SECONDARY HYPERPARATHYROIDISM OF RENAL ORIGIN Status: Chronic (12) Type 2 diabetes mellitus Status: Chronic Qualifiers: - Plan cont current plan of care, plan discussed w/ family, geriatric social worker * medication reviewed as below * symptomatic treatment * await outpt HD arrangement * HD as per nephrology * medically stable with current treatment. Review of Systems - Review of Systems ENT: negative: Ear Pain, Ear Discharge, Nose Pain, Nose Discharge, Nose Congestion, Mouth Pain, Mouth Swelling, Throat Pain, Throat Swelling, Other Respiratory: negative: Cough, Dry, Shortness of Breath, Hemoptysis, SOB with Excertion, Pleuritic Pain, Sputum, Wheezing Cardiovascular: negative: chest pain, palpitations, orthopnea, paroxysmal nocturnal dyspnea, edema, light headedness, other Gastrointestinal: negative: Nausea, Vomiting, Abdominal Pain, Diarrhea, Constipation, Melena, Hematochezia, Other Genitourinary: negative: Dysuria, Frequency, Incontinence, Hematuria, Retention , Other Musculoskeletal: negative: Neck Pain, Shoulder Pain, Arm Pain, Back Pain, Hand Pain, Leg Pain, Foot Pain, Other - Medications/Allergies Allergies/Adverse Reactions: Allergies Allergy/AdvReac Type Severity Reaction Status Date / Time No Known Allergies Allergy Verified 08/12/17 14:07 Medications: Current Medications Acetaminophen (Tylenol) 650 mg PO Q4H PRN PRN Reason: Headache/Fever or Pain Hydrocodone Bitart/Acetaminophen ([place] 5/325) 1 tab PO Q4H PRN PRN Reason: Moderate Pain (4-6) Last Admin: 08/26/17 19:17 Dose: 1 tab Al Hydroxide/Mg Hydroxide (Maalox) 30 ml PO Q6H PRN PRN Reason: Heartburn or Indigestion Albuterol Sulfate (Proventil Hfa) 1 puff INH Q4H PRN PRN Reason: Wheezing Albuterol/Ipratropium (Duoneb) 3 ml NEB [id number] [facility] Last Admin: 08/28/17 07:38 Dose: 3 ml Amlodipine Besylate (Norvasc) 10 mg PO DAILY [facility] Last Admin: 08/28/17 08:05 Dose: 10 mg Artificial Tears (Tears Naturale) 0 drop EA EYE PRN PRN PRN Reason: Dry Eyes Aspirin (Aspirin) 325 mg PO DAILY [facility] Last Admin: 08/28/17 08:04 Dose: 325 mg Atorvastatin Calcium (Lipitor) 80 mg PO HS [facility] Last Admin: 08/27/17 21:00 Dose: 80 mg Carvedilol (Coreg) 25 mg PO BID [facility] Last Admin: 08/28/17 08:05 Dose: 25 mg Clonidine (Catapres) 0.1 mg PO Q8HR [facility] Last Admin: 08/28/17 05:09 Dose: 0.1 mg Dextrose/Water (Dextrose 50%) 25 gm SLOW IVP PRN PRN PRN Reason: Hypoglycemia Epoetin Germain (Procrit) 10,000 units IVP MoWeFr@0900 [facility] Last Admin: 08/27/17 15:49 Dose: Not Given Ferrous Sulfate (Feosol) 325 mg PO QAM-WM [facility] Last Admin: 08/28/17 08:03 Dose: 325 mg Glucagon (Glucagon) 1 mg IM PRN PRN PRN Reason: Hypoglycemia Guaifenesin (Robitussin Sf) 200 mg PO Q4H PRN PRN Reason: Cough Heparin Sodium (Porcine) (Heparin) 5,000 units SC BID [facility] Last Admin: 08/28/17 08:05 Dose: 5,000 units Hydralazine HCl (Apresoline) 10 mg SLOW IVP Q4H PRN PRN Reason: Systolic BP > 180 Hydralazine HCl (Apresoline) 75 mg PO QID [facility] Last Admin: 08/28/17 08:04 Dose: 75 mg Dextrose/Water (D5w) 1,000 mls @ 0 mls/hr IV .Q0M PRN; As Directed PRN Reason: Hypoglycemia Last Admin: 08/25/17 06:05 Dose: 1,000 mls Levofloxacin 500 mg/ Device 100 mls @ 100 mls/hr IVPB Q2DAYS@1700 [facility] Last Admin: 08/26/17 20:03 Dose: 100 mls Insulin Detemir 15 units/ (Miscellaneous Medication) 0.15 mls @ 0 mls/hr SC HS [facility] Last Admin: 08/27/17 21:04 Dose: 0.15 mls Insulin Detemir 20 units/ (Miscellaneous Medication) 0.2 mls @ 0 mls/hr SC QAM [facility] Last Admin: 08/28/17 08:06 Dose: 0.2 mls Ceftriaxone Sodium 1 gm/ (Syringe 0.4 ml/ Sterile Water) 10 mls @ 120 mls/hr SLOW IVP 1830 [facility] Last Admin: 08/27/17 18:12 Dose: 10 mls Insulin Human Lispro (Humalog) 0 units SC .MODERATE SLIDING SC PRN PRN Reason: Moderate Correctional Scale Last Admin: 08/28/17 06:25 Dose: 2 unit Insulin Human Lispro (Humalog) 0 units SC .BEDTIME SLIDING SC PRN PRN Reason: Bedtime Correctional Scale Labetalol HCl (Normodyne) 20 mg SLOW IVP Q4H PRN PRN Reason: Systolic BP > 180 Levothyroxine Sodium (Synthroid) 100 mcg PO DAILY [facility] Last Admin: 08/28/17 08:05 Dose: 100 mcg Loperamide HCl (Imodium) 2 mg PO PRN PRN PRN Reason: Diarrhea/Loose Stools Loratadine (Claritin) 10 mg PO DAILYPRN PRN PRN Reason: Sinus Symptoms Magnesium Hydroxide (Milk Of Magnesium) 30 ml PO DAILYPRN PRN PRN Reason: Constipation Mineral Oil/White Petrolatum (Eucerin Cream) 0 gm TOP BIDPRN PRN PRN Reason: Dry Skin Mometasone Furoate/Formoterol Fumar (Dulera 200 Mcg/5 Mcg Inhaler) 1 puff INH BID-RT [facility] Last Admin: 08/28/17 07:39 Dose: 1 puff Nitroglycerin (Nitrostat) 0.4 mg SL Q5MIN PRN PRN Reason: Chest Pain Ondansetron HCl (Zofran Odt) 4 mg PO Q6H PRN PRN Reason: Nausea/Vomiting Ondansetron HCl (Zofran) 4 mg IVP Q6H PRN PRN Reason: Nausea/Vomiting Pantoprazole Sodium (Protonix) 40 mg PO 2100 [facility] Last Admin: 08/27/17 21:02 Dose: 40 mg Phenol (Chloraseptic [place] 180 Ml Bot) 0 ml PO PRN PRN PRN Reason: Sore Throat Senna (Senokot) 2 tab PO HSPRN PRN PRN Reason: Constipation Sodium Bicarbonate (Bicarbonate, Sodium) 325 mg PO BID [facility] Last Admin: 08/28/17 08:04 Dose: 325 mg Sodium Chloride ([place] Nasal [place] 0.65%) 0 ml EA NARE QIDPRN PRN PRN Reason: Nasal Congestion Tramadol HCl (Ultram) 50 mg PO Q8H PRN PRN Reason: PAIN 4-6 Vitamin B Complex/Vit C/Folic Acid (Nephro-[place] Tablet) 1 tab PO DAILY [facility] Last Admin: 08/28/17 08:04 Dose: 1 tab
--- NOTE | 2017-08-28 18:49 | PRG ---
DATE OF SERVICE: 08/28/2017 SUBJECTIVE: Patient was seen and examined at bedside and overnight events noted. Patient denies any shortness of breath or chest pain or palpitation. No history of nausea or vomiting or diarrhea or f ever or chills or cramps. OBJECTIVE: GENERAL: This is a well-built female in no apparent distress. VITAL SIGNS: Temperature 97.8, pulse 66, respiratory rate 16, and blood pressure 113/68. HEENT: Atraumatic, normocephalic. Oral mucosa is moist. Neck: Supple. Cardiovascular: S1and S2 heard. Rate and rhythm regular. Respiratory: Clear to auscultation. Gastrointestinal: Abdomen is soft. Musculoskeletal: No tenderness. No edema. Dermatologic: No skin rash. Neurologic: Alert and awake and oriented X3. No focal neurologic deficits. Moving all the extremities . Psychiatric: Mood and affect normal. LABORATORY DATA: Potassium is 3.7, BUN 39, creatinine was 5.5. ASSESSMENT AND PLAN: 1. End-stage renal disease. Plan is to continue dialysis as tolerated. No dialysis. 2. Anemia, severe, status post transfusion and hemoglobin is 7.8. We will monitor . 3. Hypertension. Blood pressure is stable. 4. Plan is continue dialysis as tolerated.
[2017-08-28] MEDS: cefTRIAXone\\ROCEPHIN 1 GM, Syringe 0.4 ML in Sterile Water 9.6 ML SLOW IVP SCH (19:07)
[2017-08-28] MEDS: Atorvastatin Calcium 40 MG TAB PO SCH (22:29)
[2017-08-29] MEDS: Insulin Detemir 100 UNITS/ML 15 UNITS in Pre-Filled Syringe 1 EACH SC SCH ×2 (00:23→20:32)
[2017-08-29] MEDS: cloNIDine 0.1 MG TAB PO SCH ×3 (07:19→22:21)
[2017-08-29] MEDS: Mometasone/Formoterol 120 PUFF INHALER INH SCH ×2 (07:52→19:17)
[2017-08-29] MEDS: Sodium Bicarbonate Tab 325 MG TAB PO SCH ×2 (08:43→20:26)
[2017-08-29] MEDS: Folic Acid/Vit B Comp W-C PO SCH (08:43)
[2017-08-29] MEDS: Amlodipine 10 MG TAB PO SCH (08:43)
[2017-08-29] MEDS: Aspirin 325 MG TAB PO SCH (08:43)
[2017-08-29] MEDS: Ferrous Sulfate 325 MG TAB PO SCH (08:43)
[2017-08-29] MEDS: Insulin Detemir 100 UNITS/ML 20 UNITS in Pre-Filled Syringe 1 EACH SC SCH (08:43)
[2017-08-29] MEDS: Carvedilol 25 MG TAB PO SCH ×2 (08:43→20:27)
[2017-08-29] MEDS: hydrALAZINE 25 MG TAB PO SCH ×4 (08:43→20:27)
[2017-08-29] MEDS: Levothyroxine Sodium 100 MCG TAB PO SCH (08:44)
[2017-08-29] MEDS: Heparin 5,000 UNITS/ML VIAL SC SCH ×2 (08:44→20:30)
--- NOTE | 2017-08-29 10:05 | PDOC.PN ---
- Subjective Encounter Start Date: 08/29/17 Encounter Start Time: 07:50 Patient seen and examined. No new complaints. No overnight events - Objective MAR Reviewed: Yes Vital Signs & Weight: Vital Signs (12 hours) Temp Pulse Resp BP BP Pulse Ox 08/29/17 08:43 74 08/29/17 08:00 98.2 F 74 14 08/29/17 07:51 74 14 92 L 08/29/17 07:38 98.2 F 74 16 187/66 H 94 L 08/29/17 07:19 142/78 H 08/29/17 04:00 98.3 F 72 16 133/69 95 08/29/17 00:01 71 12 94 L 08/29/17 00:00 98.4 F 71 16 141/68 H 94 L 08/28/17 22:31 142/78 H 08/28/17 22:30 78 I&O: 08/28/17 08/29/17 08/30/17 06:59 06:59 06:59 Intake Total 1420 670 Balance 1420 670 Result Diagrams: 08/28/17 04:35 08/28/17 04:35 Additional Labs: Accuchecks 08/29/17 08/28/17 08/28/17 06:04 20:35 16:32 POC Glucose 136 H 82 105 08/28/17 11:45 POC Glucose 159 H Phys Exam - Physical Examination Constitutional: NAD HEENT: PERRLA, moist MMs, sclera anicteric Neck: no JVD, supple Respiratory: no wheezing, no rales, no rhonchi Cardiovascular: RRR, no significant murmur, no rub Gastrointestinal: soft, non-tender, no distention, positive bowel sounds Musculoskeletal: no edema, pulses present Neurological: non-focal, normal sensation, moves all 4 limbs Psychiatric: normal affect, A&O x 3 Skin: no rash, normal turgor Dx/Plan (1) Acute on chronic diastolic (congestive) heart failure Code(s): I50.33 - ACUTE ON CHRONIC DIASTOLIC (CONGESTIVE) HEART FAILURE Status : Acute (2) ESRD needing dialysis Code(s): N18.6 - END STAGE RENAL DISEASE; Z99.2 - DEPENDENCE ON RENAL DIALYSIS Status: Acute (3) Elevated troponin Code(s): R74.8 - ABNORMAL LEVELS OF OTHER SERUM ENZYMES Status: Acute (4) Pneumonia Code(s): J18.9 - PNEUMONIA, UNSPECIFIED ORGANISM Status: Acute (5) Uremia Code(s): N19 - UNSPECIFIED KIDNEY FAILURE Status: Acute (6) Anemia of renal disease Code(s): D63.1 - ANEMIA IN CHRONIC KIDNEY DISEASE Status: Chronic (7) CKD (chronic kidney disease) stage 5, GFR less than 15 ml/min Code(s): N18.5 - CHRONIC KIDNEY DISEASE, STAGE 5 Status: Chronic (8) Hypertension Code(s): I10 - ESSENTIAL (PRIMARY) HYPERTENSION Status: Chronic Qualifiers: (9) Hypothyroidism Code(s): E03.9 - HYPOTHYROIDISM, UNSPECIFIED Status: Chronic Qualifiers: (10) Metabolic acidosis Code(s): E87.2 - ACIDOSIS Status: Chronic (11) Secondary hyperparathyroidism of renal origin Code(s): N25.81 - SECONDARY HYPERPARATHYROIDISM OF RENAL ORIGIN Status: Chronic (12) Type 2 diabetes mellitus Status: Chronic Qualifiers: - Plan cont current plan of care, plan discussed w/ family, continue antibiotics, transition social worker * medication reviewed as below * symptomatic treatment * await outpt HD schedule and arrangement * change levaquin PO * dc rocephin * discussed with family. Review of Systems - Review of Systems ENT: negative: Ear Pain, Ear Discharge, Nose Pain, Nose Discharge, Nose Congestion, Mouth Pain, Mouth Swelling, Throat Pain, Throat Swelling, Other Respiratory: negative: Cough, Dry, Shortness of Breath, Hemoptysis, SOB with Excertion, Pleuritic Pain, Sputum, Wheezing Cardiovascular: negative: chest pain, palpitations, orthopnea, paroxysmal nocturnal dyspnea, edema, light headedness, other Gastrointestinal: negative: Nausea, Vomiting, Abdominal Pain, Diarrhea, Constipation, Melena, Hematochezia, Other Genitourinary: negative: Dysuria, Frequency, Incontinence, Hematuria, Retention , Other Musculoskeletal: negative: Neck Pain, Shoulder Pain, Arm Pain, Back Pain, Hand Pain, Leg Pain, Foot Pain, Other Skin: negative: Rash, Lesions, Y[place], Bruising, Other - Medications/Allergies Allergies/Adverse Reactions: Allergies Allergy/AdvReac Type Severity Reaction Status Date / Time No Known Allergies Allergy Verified 08/12/17 14:07 Medications: Current Medications Acetaminophen (Tylenol) 650 mg PO Q4H PRN PRN Reason: Headache/Fever or Pain Hydrocodone Bitart/Acetaminophen ([place] 5/325) 1 tab PO Q4H PRN PRN Reason: Moderate Pain (4-6) Last Admin: 08/26/17 19:17 Dose: 1 tab Al Hydroxide/Mg Hydroxide (Maalox) 30 ml PO Q6H PRN PRN Reason: Heartburn or Indigestion Albuterol Sulfate (Proventil Hfa) 1 puff INH Q4H PRN PRN Reason: Wheezing Albuterol/Ipratropium (Duoneb) 3 ml NEB [id number] ON LICENSE OF [facility] Last Admin: 08/29/17 07:51 Dose: 3 ml Amlodipine Besylate (Norvasc) 10 mg PO DAILY ON LICENSE OF [facility] Last Admin: 08/29/17 08:43 Dose: 10 mg Artificial Tears (Tears Naturale) 0 drop EA EYE PRN PRN PRN Reason: Dry Eyes Aspirin (Aspirin) 325 mg PO DAILY ON [facility] OF [facility] Last Admin: 08/29/17 08:43 Dose: 325 mg Atorvastatin Calcium (Lipitor) 80 mg PO HS ON [facility] OF [facility] Last Admin: 08/28/17 22:29 Dose: 80 mg Carvedilol (Coreg) 25 mg PO BID ON [facility] OF [facility] Last Admin: 08/29/17 08:43 Dose: 25 mg Clonidine (Catapres) 0.1 mg PO Q8HR ON LICENSE OF [facility] Last Admin: 08/29/17 07:19 Dose: Not Given Dextrose/Water (Dextrose 50%) 25 gm SLOW IVP PRN PRN PRN Reason: Hypoglycemia Epoetin Germain (Procrit) 10,000 units IVP MoWeFr@0900 ON LICENSE OF [facility] Last Admin: 08/27/17 15:49 Dose: Not Given Ferrous Sulfate (Feosol) 325 mg PO QAM-WM ON [facility] OF [facility] Last Admin: 08/29/17 08:43 Dose: 325 mg Glucagon (Glucagon) 1 mg IM PRN PRN PRN Reason: Hypoglycemia Guaifenesin (Robitussin Sf) 200 mg PO Q4H PRN PRN Reason: Cough Heparin Sodium (Porcine) (Heparin) 5,000 units SC BID ON [facility] OF [facility] Last Admin: 08/29/17 08:44 Dose: 5,000 units Hydralazine HCl (Apresoline) 10 mg SLOW IVP Q4H PRN PRN Reason: Systolic BP > 180 Hydralazine HCl (Apresoline) 75 mg PO QID ON [facility] OF [facility] Last Admin: 08/29/17 08:43 Dose: 75 mg Dextrose/Water (D5w) 1,000 mls @ 0 mls/hr IV .Q0M PRN; As Directed PRN Reason: Hypoglycemia Last Admin: 08/25/17 06:05 Dose: 1,000 mls Levofloxacin 500 mg/ Device 100 mls @ 100 mls/hr IVPB Q2DAYS@1700 ON LICENSE OF [facility] Last Admin: 08/28/17 17:46 Dose: 100 mls Insulin Detemir 15 units/ (Miscellaneous Medication) 0.15 mls @ 0 mls/hr SC HS ON LICENSE OF [facility] Last Admin: 08/29/17 00:23 Dose: Not Given Insulin Detemir 20 units/ (Miscellaneous Medication) 0.2 mls @ 0 mls/hr SC QAM ON LICENSE OF [facility] Last Admin: 08/29/17 08:43 Dose: 0.2 mls Ceftriaxone Sodium 1 gm/ (Syringe 0.4 ml/ Sterile Water) 10 mls @ 120 mls/hr SLOW IVP 1830 ON LICENSE OF [facility] Last Admin: 08/28/17 19:07 Dose: 10 mls Insulin Human Lispro (Humalog) 0 units SC .MODERATE SLIDING SC PRN PRN Reason: Moderate Correctional Scale Last Admin: 08/28/17 13:05 Dose: 2 unit Insulin Human Lispro (Humalog) 0 units SC .BEDTIME SLIDING SC PRN PRN Reason: Bedtime Correctional Scale Labetalol HCl (Normodyne) 20 mg SLOW IVP Q4H PRN PRN Reason: Systolic BP > 180 Levothyroxine Sodium (Synthroid) 100 mcg PO DAILY ON [facility] OF [facility] Last Admin: 08/29/17 08:44 Dose: 100 mcg Loperamide HCl (Imodium) 2 mg PO PRN PRN PRN Reason: Diarrhea/Loose Stools Loratadine (Claritin) 10 mg PO DAILYPRN PRN PRN Reason: Sinus Symptoms Magnesium Hydroxide (Milk Of Magnesium) 30 ml PO DAILYPRN PRN PRN Reason: Constipation Last Admin: 08/28/17 13:14 Dose: 30 ml Mineral Oil/White Petrolatum (Eucerin Cream) 0 gm TOP BIDPRN PRN PRN Reason: Dry Skin Mometasone Furoate/Formoterol Fumar (Dulera 200 Mcg/5 Mcg Inhaler) 1 puff INH BID-RT ON LICENSE OF [facility] Last Admin: 08/29/17 07:52 Dose: 1 puff Nitroglycerin (Nitrostat) 0.4 mg SL Q5MIN PRN PRN Reason: Chest Pain Ondansetron HCl (Zofran Odt) 4 mg PO Q6H PRN PRN Reason: Nausea/Vomiting Ondansetron HCl (Zofran) 4 mg IVP Q6H PRN PRN Reason: Nausea/Vomiting Pantoprazole Sodium (Protonix) 40 mg PO 2100 ON LICENSE OF [facility] Last Admin: 08/28/17 23:39 Dose: 40 mg Phenol (Chloraseptic [place] 180 Ml Bot) 0 ml PO PRN PRN PRN Reason: Sore Throat Senna (Senokot) 2 tab PO HSPRN PRN PRN Reason: Constipation Sodium Bicarbonate (Bicarbonate, Sodium) 325 mg PO BID ON LICENSE OF [facility] Last Admin: 08/29/17 08:43 Dose: 325 mg Sodium Chloride ([place] Nasal [place] 0.65%) 0 ml EA NARE QIDPRN PRN PRN Reason: Nasal Congestion Tramadol HCl (Ultram) 50 mg PO Q8H PRN PRN Reason: PAIN 4-6 Vitamin B Complex/Vit C/Folic Acid (Nephro-[place] Tablet) 1 tab PO DAILY ON LICENSE OF [facility] Last Admin: 08/29/17 08:43 Dose: 1 tab
[2017-08-29] MEDS: HumaLOG 300 UNITS/3 ML VIAL SC PRN ×2 (11:21→16:33)
--- NOTE | 2017-08-29 16:59 | PRG ---
DATE OF SERVICE: 08/29/2017 SUBJECTIVE: Patient was seen and examined at bedside and overnight events noted. Patient denies any shortness of breath or chest pain or palpitation. No history of nausea or vomiting or diarrhea or f ever or chills or cramps. OBJECTIVE: GENERAL: This is a well-built female, in no apparent distress. VITAL SIGNS: Temperature 98.0, pulse 68, respiratory rate 14, blood pressure 155/71. HEENT: Atraumatic, normocephalic, oral mucosa is moist. NECK: Supple. CARDIOVASCULAR: S1, S2 heard, rate and rhythm regular. RESPIRATORY: Clear to auscultation. GASTROINTESTINAL: Abdomen is soft. MUSCULOSKELETAL: No tenderness, no edema. DERMATOLOGIC: No skin rash. NEUROLOGIC: Alert and awake and oriented x3. No focal neurologic deficits. Moving all the extremit ies. PSYCHIATRIC: Mood and affect normal. LABORATORY DATA: Not done today. ASSESSMENT AND PLAN: 1. End-stage renal disease. Continue on hemodialysis as tolerated. 2. Anemia, severe. 3. Hypertension. 4. Edema, controlled. Plan is to continue on dialysis as tolerated. No dialysis today.
[2017-08-29] MEDS: Atorvastatin Calcium 40 MG TAB PO SCH (20:27)
[2017-08-30] MEDS: cloNIDine 0.1 MG TAB PO SCH ×3 (05:42→20:59)
[2017-08-30] MEDS: Insulin Detemir 100 UNITS/ML 20 UNITS in Pre-Filled Syringe 1 EACH SC SCH (09:18)
[2017-08-30] MEDS: Ferrous Sulfate 325 MG TAB PO SCH (09:19)
[2017-08-30] MEDS: Amlodipine 10 MG TAB PO SCH (09:19)
[2017-08-30] MEDS: Carvedilol 25 MG TAB PO SCH ×2 (09:19→20:48)
[2017-08-30] MEDS: Folic Acid/Vit B Comp W-C PO SCH (09:19)
[2017-08-30] MEDS: Levothyroxine Sodium 100 MCG TAB PO SCH (09:19)
[2017-08-30] MEDS: Aspirin 325 MG TAB PO SCH (09:19)
[2017-08-30] MEDS: Sodium Bicarbonate Tab 325 MG TAB PO SCH ×2 (09:19→20:48)
[2017-08-30] MEDS: Heparin 5,000 UNITS/ML VIAL SC SCH ×2 (09:20→20:48)
[2017-08-30] MEDS: hydrALAZINE 25 MG TAB PO SCH ×4 (09:20→20:50)
--- NOTE | 2017-08-30 10:11 | PDOC.PN ---
- Subjective Encounter Start Date: 08/30/17 Encounter Start Time: 09:00 Patient seen and examined. No new complaints. No overnight events - Objective MAR Reviewed: Yes Vital Signs & Weight: Vital Signs (12 hours) Temp Pulse Resp BP BP Pulse Ox 08/30/17 08:00 98.3 F 70 16 97 08/30/17 07:43 98.3 F 70 16 189/64 H 97 08/30/17 05:42 137/65 08/30/17 03:47 98.5 F 70 16 133/66 94 L 08/30/17 00:00 98.7 F 69 16 131/65 95 08/29/17 23:27 68 16 96 08/29/17 22:21 137/65 I&O: 08/29/17 08/30/17 08/31/17 06:59 06:59 06:59 Intake Total 670 640 Balance 670 640 Result Diagrams: 08/28/17 04:35 08/28/17 04:35 Additional Labs: Accuchecks 08/30/17 08/29/17 08/29/17 05:26 20:51 15:55 POC Glucose 60 L 151 H 164 H 08/29/17 08/29/17 10:49 03:30 POC Glucose 217 H 99 Phys Exam - Physical Examination Constitutional: NAD HEENT: PERRLA, moist MMs, sclera anicteric Neck: no JVD, supple Respiratory: no wheezing, no rales, no rhonchi Cardiovascular: RRR, no significant murmur, no rub Gastrointestinal: soft, non-tender, no distention, positive bowel sounds Musculoskeletal: no edema, pulses present Neurological: non-focal, normal sensation, moves all 4 limbs Lymphatic: no nodes Psychiatric: normal affect, A&O x 3 Skin: no rash, normal turgor Dx/Plan (1) Acute on chronic diastolic (congestive) heart failure Code(s): I50.33 - ACUTE ON CHRONIC DIASTOLIC (CONGESTIVE) HEART FAILURE Status : Resolved (2) ESRD needing dialysis Code(s): N18.6 - END STAGE RENAL DISEASE; Z99.2 - DEPENDENCE ON RENAL DIALYSIS Status: Acute Comment: now on HD (3) Elevated troponin Code(s): R74.8 - ABNORMAL LEVELS OF OTHER SERUM ENZYMES Status: Chronic (4) Pneumonia Code(s): J18.9 - PNEUMONIA, UNSPECIFIED ORGANISM Status: Acute (5) Uremia Code(s): N19 - UNSPECIFIED KIDNEY FAILURE Status: Resolved (6) Anemia of renal disease Code(s): D63.1 - ANEMIA IN CHRONIC KIDNEY DISEASE Status: Chronic (7) CKD (chronic kidney disease) stage 5, GFR less than 15 ml/min Code(s): N18.5 - CHRONIC KIDNEY DISEASE, STAGE 5 Status: Chronic (8) Hypertension Code(s): I10 - ESSENTIAL (PRIMARY) HYPERTENSION Status: Chronic Qualifiers: (9) Hypothyroidism Code(s): E03.9 - HYPOTHYROIDISM, UNSPECIFIED Status: Chronic Qualifiers: (10) Metabolic acidosis Code(s): E87.2 - ACIDOSIS Status: Chronic (11) Secondary hyperparathyroidism of renal origin Code(s): N25.81 - SECONDARY HYPERPARATHYROIDISM OF RENAL ORIGIN Status: Chronic (12) Type 2 diabetes mellitus Status: Chronic Qualifiers: - Plan cont current plan of care * change to po levaquin * await outpt HD arrangement * medication reviewed as below * symptomatic treatment. Review of Systems - Review of Systems ENT: negative: Ear Pain, Ear Discharge, Nose Pain, Nose Discharge, Nose Congestion, Mouth Pain, Mouth Swelling, Throat Pain, Throat Swelling, Other Respiratory: negative: Cough, Dry, Shortness of Breath, Hemoptysis, SOB with Excertion, Pleuritic Pain, Sputum, Wheezing Cardiovascular: negative: chest pain, palpitations, orthopnea, paroxysmal nocturnal dyspnea, edema, light headedness, other Gastrointestinal: negative: Nausea, Vomiting, Abdominal Pain, Diarrhea, Constipation, Melena, Hematochezia, Other Genitourinary: negative: Dysuria, Frequency, Incontinence, Hematuria, Retention , Other Musculoskeletal: negative: Neck Pain, Shoulder Pain, Arm Pain, Back Pain, Hand Pain, Leg Pain, Foot Pain, Other Skin: negative: Rash, Lesions, Yosi, Bruising, Other - Medications/Allergies Allergies/Adverse Reactions: Allergies Allergy/AdvReac Type Severity Reaction Status Date / Time No Known Allergies Allergy Verified 08/12/17 14:07 Medications: Current Medications Acetaminophen (Tylenol) 650 mg PO Q4H PRN PRN Reason: Headache/Fever or Pain Hydrocodone Bitart/Acetaminophen ([place] 5/325) 1 tab PO Q4H PRN PRN Reason: Moderate Pain (4-6) Last Admin: 08/26/17 19:17 Dose: 1 tab Al Hydroxide/Mg Hydroxide (Maalox) 30 ml PO Q6H PRN PRN Reason: Heartburn or Indigestion Albuterol Sulfate (Proventil Hfa) 1 puff INH Q4H PRN PRN Reason: Wheezing Albuterol/Ipratropium (Duoneb) 3 ml NEB [id number] [facility] Last Admin: 08/30/17 09:08 Dose: Not Given Amlodipine Besylate (Norvasc) 10 mg PO DAILY [facility] Last Admin: 08/30/17 09:19 Dose: 10 mg Artificial Tears (Tears Naturale) 0 drop EA EYE PRN PRN PRN Reason: Dry Eyes Aspirin (Aspirin) 325 mg PO DAILY [facility] Last Admin: 08/30/17 09:19 Dose: 325 mg Atorvastatin Calcium (Lipitor) 80 mg PO HS [facility] Last Admin: 08/29/17 20:27 Dose: 80 mg Carvedilol (Coreg) 25 mg PO BID [facility] Last Admin: 08/30/17 09:19 Dose: 25 mg Clonidine (Catapres) 0.1 mg PO Q8HR [facility] Last Admin: 08/30/17 05:42 Dose: 0.1 mg Dextrose/Water (Dextrose 50%) 25 gm SLOW IVP PRN PRN PRN Reason: Hypoglycemia Epoetin Germain (Procrit) 10,000 units IVP MoWeFr@0900 [facility] Last Admin: 08/27/17 15:49 Dose: Not Given Ferrous Sulfate (Feosol) 325 mg PO QAM-WM [facility] Last Admin: 08/30/17 09:19 Dose: 325 mg Glucagon (Glucagon) 1 mg IM PRN PRN PRN Reason: Hypoglycemia Guaifenesin (Robitussin Sf) 200 mg PO Q4H PRN PRN Reason: Cough Heparin Sodium (Porcine) (Heparin) 5,000 units SC BID [facility] Last Admin: 08/30/17 09:20 Dose: 5,000 units Hydralazine HCl (Apresoline) 10 mg SLOW IVP Q4H PRN PRN Reason: Systolic BP > 180 Hydralazine HCl (Apresoline) 75 mg PO QID [facility] Last Admin: 08/30/17 09:20 Dose: 75 mg Dextrose/Water (D5w) 1,000 mls @ 0 mls/hr IV .Q0M PRN; As Directed PRN Reason: Hypoglycemia Last Admin: 08/25/17 06:05 Dose: 1,000 mls Insulin Detemir 15 units/ (Miscellaneous Medication) 0.15 mls @ 0 mls/hr SC HS [facility] Last Admin: 08/29/17 20:32 Dose: 0.15 mls Insulin Detemir 20 units/ (Miscellaneous Medication) 0.2 mls @ 0 mls/hr SC QAM [facility] Last Admin: 08/30/17 09:18 Dose: 0.2 mls Insulin Human Lispro (Humalog) 0 units SC .MODERATE SLIDING SC PRN PRN Reason: Moderate Correctional Scale Last Admin: 08/29/17 16:33 Dose: 2 unit Insulin Human Lispro (Humalog) 0 units SC .BEDTIME SLIDING SC PRN PRN Reason: Bedtime Correctional Scale Labetalol HCl (Normodyne) 20 mg SLOW IVP Q4H PRN PRN Reason: Systolic BP > 180 Levofloxacin (Levaquin) 500 mg PO Q2D@0600 [facility] Last Admin: 08/30/17 05:42 Dose: 500 mg Levothyroxine Sodium (Synthroid) 100 mcg PO DAILY [facility] Last Admin: 08/30/17 09:19 Dose: 100 mcg Loperamide HCl (Imodium) 2 mg PO PRN PRN PRN Reason: Diarrhea/Loose Stools Loratadine (Claritin) 10 mg PO DAILYPRN PRN PRN Reason: Sinus Symptoms Magnesium Hydroxide (Milk Of Magnesium) 30 ml PO DAILYPRN PRN PRN Reason: Constipation Last Admin: 08/28/17 13:14 Dose: 30 ml Mineral Oil/White Petrolatum (Eucerin Cream) 0 gm TOP BIDPRN PRN PRN Reason: Dry Skin Mometasone Furoate/Formoterol Fumar (Dulera 200 Mcg/5 Mcg Inhaler) 1 puff INH BID-RT [facility] Last Admin: 08/29/17 19:17 Dose: 1 puff Nitroglycerin (Nitrostat) 0.4 mg SL Q5MIN PRN PRN Reason: Chest Pain Ondansetron HCl (Zofran Odt) 4 mg PO Q6H PRN PRN Reason: Nausea/Vomiting Ondansetron HCl (Zofran) 4 mg IVP Q6H PRN PRN Reason: Nausea/Vomiting Pantoprazole Sodium (Protonix) 40 mg PO 2100 [facility] Last Admin: 08/29/17 20:28 Dose: 40 mg Phenol (Chloraseptic [place] 180 Ml Bot) 0 ml PO PRN PRN PRN Reason: Sore Throat Senna (Senokot) 2 tab PO HSPRN PRN PRN Reason: Constipation Sodium Bicarbonate (Bicarbonate, Sodium) 325 mg PO BID [facility] Last Admin: 08/30/17 09:19 Dose: 325 mg Sodium Chloride ([place] Nasal [place] 0.65%) 0 ml EA NARE QIDPRN PRN PRN Reason: Nasal Congestion Tramadol HCl (Ultram) 50 mg PO Q8H PRN PRN Reason: PAIN 4-6 Vitamin B Complex/Vit C/Folic Acid (Nephro-[place] Tablet) 1 tab PO DAILY [facility] Last Admin: 08/30/17 09:19 Dose: 1 tab
[2017-08-30] MEDS: HumaLOG 300 UNITS/3 ML VIAL SC PRN (11:12)
[2017-08-30] MEDS: Mometasone/Formoterol 120 PUFF INHALER INH SCH ×2 (13:21→20:51)
--- NOTE | 2017-08-30 16:44 | PRG ---
DATE OF SERVICE: 08/30/2017 SUBJECTIVE: Patient was seen and examined at bedside and overnight events noted. Patient denies any shortness of breath or chest pain or palpitation. No history of nausea or vomiting or diarrhea or f ever or chills or cramps. OBJECTIVE: GENERAL: This is a well-built female in no apparent distress. VITAL SIGNS: Temperature 97.5, pulse 65, respiratory rate 16, blood pressure 178/69. HEENT: Atraumatic, normocephalic. Oral mucosa is moist. NECK: Supple. CARDIOVASCULAR: S1, S2 heard. Rate and rhythm regular. RESPIRATORY: Clear to auscultation. GASTROINTESTINAL: Abdomen is soft. MUSCULOSKELETAL: No tenderness. No edema. DERMATOLOGIC: No skin rash. NEUROLOGIC: Alert and awake and oriented x3. No focal neurologic deficits. Moving all the extremiti es. PSYCHIATRIC: Mood and affect normal. LABORATORY DATA: Not done today. ASSESSMENT AND PLAN: 1. End-stage renal disease, continue on hemodialysis. 2. Anemia, severe, status post transfusion. 3. Hypertension. 4. Edema. Plan is continue on dialysis as tolerated. We will continue Epogen with dialysis.
[2017-08-30] MEDS: Epoetin (ESRD) 10,000 UNITS/ML VIAL IVP SCH (16:45)
[2017-08-30] MEDS: HYDROcodone/Acetaminophen 5/325 mg Tablet PO PRN (17:54)
[2017-08-30] MEDS ORDERED: Clopidogrel Bisulfate 75 MG TAB ONE (19:49)
[2017-08-30] MEDS: Atorvastatin Calcium 40 MG TAB PO SCH (20:48)
[2017-08-30] MEDS: Insulin Detemir 100 UNITS/ML 15 UNITS in Pre-Filled Syringe 1 EACH SC SCH (20:49)
[2017-08-30] MEDS: traMADol HCl 50 MG TAB PO PRN (20:59)
[2017-08-31] MEDS: HYDROcodone/Acetaminophen 5/325 mg Tablet PO PRN ×2 (05:26→20:48)
[2017-08-31] MEDS: cloNIDine 0.1 MG TAB PO SCH (05:26)
[2017-08-31] MEDS: Mometasone/Formoterol 120 PUFF INHALER INH SCH ×2 (07:04→20:55)
[2017-08-31] MEDS: Insulin Detemir 100 UNITS/ML 20 UNITS in Pre-Filled Syringe 1 EACH SC SCH (07:21)
[2017-08-31] MEDS: Levothyroxine Sodium 100 MCG TAB PO SCH (08:02)
[2017-08-31] MEDS: Aspirin 325 MG TAB PO SCH (08:02)
[2017-08-31] MEDS: Ferrous Sulfate 325 MG TAB PO SCH (08:02)
[2017-08-31] MEDS: hydrALAZINE 25 MG TAB PO SCH ×2 (08:02→20:49)
[2017-08-31] MEDS: Folic Acid/Vit B Comp W-C PO SCH (08:02)
[2017-08-31] MEDS: Carvedilol 25 MG TAB PO SCH (08:02)
[2017-08-31] MEDS: Heparin 5,000 UNITS/ML VIAL SC SCH ×2 (08:02→20:50)
[2017-08-31] MEDS: Amlodipine 10 MG TAB PO SCH (08:02)
[2017-08-31] MEDS: Sodium Bicarbonate Tab 325 MG TAB PO SCH ×2 (08:02→20:49)
[2017-08-31] MEDS: traMADol HCl 50 MG TAB PO PRN (08:09)
[2017-08-31 08:36] LABS: #Eosinphils 0.1 thou/uL (0.0-0.7); #Lymphocytes 1.1 thou/uL (1.20-3.40); #Monocytes 0.9 thou/uL (0.11-0.59); #Neutrophils 9.6 thou/uL (1.40-6.50); %Basophils 0.2 % (0.0-1.0); %Eosinophils 1.3 % (0.0-10.0); %Lymphocytes 9.5 % (21.0-51.0); %Monocytes 7.9 % (0.0-10.0); %Neutrophils 81.2 % (42.0-75.0); Hemoglobin 7.9 g/dL (12.0-16.0); Mean Corpuscular HGB CONC 32.7 g/dL (32.0-36.0); Mean Corpuscular Hemoglobin 28.1 pg (27.0-31.0); Mean Corpuscular Volume 86.1 fl (81.0-99.0); Platelet Count 281 thou/uL (130-400); RBC Distribution Width 15.2 % (11.5-14.5); Red Blood Cell (RBC) Count 2.81 mill/uL (4.20-5.40); White Blood Cell (WBC) Count 11.8 thou/uL (4.8-10.8)
[2017-08-31 08:59] LABS: Albumin 2.5 g/dL (3.4-4.8); Anion Gap 10 mmol/L (10-20); BUN (Urea Nitrogen) 19 mg/dL (9.8-20.1); BUN/Creatinine Ratio 4.71; Calc. Creatinine Clearance 14 mL/min (70-130); Calcium 8.6 mg/dL (7.8-10.44); Carbon Dioxide 33 mmol/L (23-31); Chloride 96 mmol/L (98-107); Estimated GFR-MDRD 13; Glucose 106 mg/dL (80-115); Phosphorus 3.1 mg/dL (2.3-4.7); Potassium 4.4 mmol/L (3.5-5.1); Sodium 135 mmol/L (136-145)
--- NOTE | 2017-08-31 10:28 | PDOC.PN ---
- Subjective Encounter Start Date: 08/31/17 Encounter Start Time: 08:30 Patient seen and examined. No new complaints. No overnight events - Objective MAR Reviewed: Yes Vital Signs & Weight: Vital Signs (12 hours) Temp Pulse Resp BP BP Pulse Ox 08/31/17 08:20 97.9 F 69 14 109/61 96 08/31/17 08:15 97.9 F 69 14 96 08/31/17 08:02 67 08/31/17 06:59 67 14 97 08/31/17 05:26 126/65 08/31/17 03:29 98.4 F 68 16 105/59 L 95 08/31/17 00:36 66 16 95 08/31/17 00:00 98.4 F 96 16 99/56 L 96 I&O: 08/30/17 08/31/17 09/01/17 06:59 06:59 06:59 Intake Total 640 480 Balance 640 480 Result Diagrams: 08/31/17 07:56 08/31/17 07:56 Additional Labs: Accuchecks 08/31/17 08/30/17 08/30/17 05:23 20:28 10:52 POC Glucose 106 92 184 H Phys Exam - Physical Examination Constitutional: NAD HEENT: PERRLA, moist MMs, sclera anicteric Neck: no JVD, supple Respiratory: no wheezing, no rales, no rhonchi Cardiovascular: RRR, no significant murmur, no rub Gastrointestinal: soft, non-tender, no distention, positive bowel sounds Musculoskeletal: no edema, pulses present Neurological: non-focal, normal sensation Lymphatic: no nodes Psychiatric: normal affect, A&O x 3 Skin: no rash, normal turgor Dx/Plan (1) Acute on chronic diastolic (congestive) heart failure Code(s): I50.33 - ACUTE ON CHRONIC DIASTOLIC (CONGESTIVE) HEART FAILURE Status : Resolved (2) ESRD needing dialysis Code(s): N18.6 - END STAGE RENAL DISEASE; Z99.2 - DEPENDENCE ON RENAL DIALYSIS Status: Acute Comment: now on HD (3) Elevated troponin Code(s): R74.8 - ABNORMAL LEVELS OF OTHER SERUM ENZYMES Status: Chronic (4) Pneumonia Code(s): J18.9 - PNEUMONIA, UNSPECIFIED ORGANISM Status: Acute (5) Uremia Code(s): N19 - UNSPECIFIED KIDNEY FAILURE Status: Resolved (6) Anemia of renal disease Code(s): D63.1 - ANEMIA IN CHRONIC KIDNEY DISEASE Status: Chronic (7) CKD (chronic kidney disease) stage 5, GFR less than 15 ml/min Code(s): N18.5 - CHRONIC KIDNEY DISEASE, STAGE 5 Status: Chronic (8) Hypertension Code(s): I10 - ESSENTIAL (PRIMARY) HYPERTENSION Status: Chronic Qualifiers: (9) Hypothyroidism Code(s): E03.9 - HYPOTHYROIDISM, UNSPECIFIED Status: Chronic Qualifiers: (10) Metabolic acidosis Code(s): E87.2 - ACIDOSIS Status: Chronic (11) Secondary hyperparathyroidism of renal origin Code(s): N25.81 - SECONDARY HYPERPARATHYROIDISM OF RENAL ORIGIN Status: Chronic (12) Type 2 diabetes mellitus Status: Chronic Qualifiers: - Plan cont current plan of care, continue antibiotics, foster care social worker, respiratory therapy * pt has finished antibiotics in hospital * duoneb as needed * medication reviewed as below * symptomatic treatment * await outpt HD arrangement * discussed with nephrology * tomorrow plan for HD. Review of Systems - Review of Systems ENT: negative: Ear Pain, Ear Discharge, Nose Pain, Nose Discharge, Nose Congestion, Mouth Pain, Mouth Swelling, Throat Pain, Throat Swelling, Other Respiratory: negative: Cough, Dry, Shortness of Breath, Hemoptysis, SOB with Excertion, Pleuritic Pain, Sputum, Wheezing Cardiovascular: negative: chest pain, palpitations, orthopnea, paroxysmal nocturnal dyspnea, edema, light headedness, other Gastrointestinal: negative: Nausea, Vomiting, Abdominal Pain, Diarrhea, Constipation, Melena, Hematochezia, Other Genitourinary: negative: Dysuria, Frequency, Incontinence, Hematuria, Retention , Other Musculoskeletal: negative: Neck Pain, Shoulder Pain, Arm Pain, Back Pain, Hand Pain, Leg Pain, Foot Pain, Other Skin: negative: Rash, Lesions, Yosi, Bruising, Other - Medications/Allergies Allergies/Adverse Reactions: Allergies Allergy/AdvReac Type Severity Reaction Status Date / Time No Known Allergies Allergy Verified 08/12/17 14:07 Medications: Current Medications Acetaminophen (Tylenol) 650 mg PO Q4H PRN PRN Reason: Headache/Fever or Pain Hydrocodone Bitart/Acetaminophen ([place] 5/325) 1 tab PO Q4H PRN PRN Reason: Moderate Pain (4-6) Last Admin: 08/31/17 05:26 Dose: 1 tab Al Hydroxide/Mg Hydroxide (Maalox) 30 ml PO Q6H PRN PRN Reason: Heartburn or Indigestion Albuterol Sulfate (Proventil Hfa) 1 puff INH Q4H PRN PRN Reason: Wheezing Albuterol/Ipratropium (Duoneb) 3 ml NEB [id number] [facility] Last Admin: 08/31/17 06:59 Dose: 3 ml Amlodipine Besylate (Norvasc) 10 mg PO DAILY [facility] Last Admin: 08/31/17 08:02 Dose: Not Given Artificial Tears (Tears Naturale) 0 drop EA EYE PRN PRN PRN Reason: Dry Eyes Aspirin (Aspirin) 325 mg PO DAILY [facility] Last Admin: 08/31/17 08:02 Dose: 325 mg Atorvastatin Calcium (Lipitor) 80 mg PO HS [facility] Last Admin: 08/30/17 20:48 Dose: 80 mg Carvedilol (Coreg) 25 mg PO BID [facility] Last Admin: 08/31/17 08:02 Dose: 25 mg Clonidine (Catapres) 0.1 mg PO Q8HR [facility] Last Admin: 08/31/17 05:26 Dose: 0.1 mg Dextrose/Water (Dextrose 50%) 25 gm SLOW IVP PRN PRN PRN Reason: Hypoglycemia Epoetin Germain (Procrit) 10,000 units IVP MoWeFr@0900 [facility] Last Admin: 08/30/17 16:45 Dose: 10,000 units Ferrous Sulfate (Feosol) 325 mg PO QAM-WM [facility] Last Admin: 08/31/17 08:02 Dose: 325 mg Glucagon (Glucagon) 1 mg IM PRN PRN PRN Reason: Hypoglycemia Guaifenesin (Robitussin Sf) 200 mg PO Q4H PRN PRN Reason: Cough Heparin Sodium (Porcine) (Heparin) 5,000 units SC BID [facility] Last Admin: 08/31/17 08:02 Dose: 5,000 units Hydralazine HCl (Apresoline) 10 mg SLOW IVP Q4H PRN PRN Reason: Systolic BP > 180 Hydralazine HCl (Apresoline) 75 mg PO QID [facility] Last Admin: 08/31/17 08:02 Dose: Not Given Dextrose/Water (D5w) 1,000 mls @ 0 mls/hr IV .Q0M PRN; As Directed PRN Reason: Hypoglycemia Last Admin: 08/25/17 06:05 Dose: 1,000 mls Insulin Detemir 15 units/ (Miscellaneous Medication) 0.15 mls @ 0 mls/hr SC HS [facility] Last Admin: 08/30/17 20:49 Dose: Not Given Insulin Detemir 20 units/ (Miscellaneous Medication) 0.2 mls @ 0 mls/hr SC QAM [facility] Last Admin: 08/31/17 07:21 Dose: Not Given Insulin Human Lispro (Humalog) 0 units SC .MODERATE SLIDING SC PRN PRN Reason: Moderate Correctional Scale Last Admin: 08/30/17 11:12 Dose: 2 unit Insulin Human Lispro (Humalog) 0 units SC .BEDTIME SLIDING SC PRN PRN Reason: Bedtime Correctional Scale Labetalol HCl (Normodyne) 20 mg SLOW IVP Q4H PRN PRN Reason: Systolic BP > 180 Levofloxacin (Levaquin) 500 mg PO Q2D@0600 [facility] Last Admin: 08/30/17 05:42 Dose: 500 mg Levothyroxine Sodium (Synthroid) 100 mcg PO DAILY [facility] Last Admin: 08/31/17 08:02 Dose: 100 mcg Loperamide HCl (Imodium) 2 mg PO PRN PRN PRN Reason: Diarrhea/Loose Stools Loratadine (Claritin) 10 mg PO DAILYPRN PRN PRN Reason: Sinus Symptoms Magnesium Hydroxide (Milk Of Magnesium) 30 ml PO DAILYPRN PRN PRN Reason: Constipation Last Admin: 08/28/17 13:14 Dose: 30 ml Mineral Oil/White Petrolatum (Eucerin Cream) 0 gm TOP BIDPRN PRN PRN Reason: Dry Skin Mometasone Furoate/Formoterol Fumar (Dulera 200 Mcg/5 Mcg Inhaler) 1 puff INH BID-RT [facility] Last Admin: 08/31/17 07:04 Dose: 1 puff Nitroglycerin (Nitrostat) 0.4 mg SL Q5MIN PRN PRN Reason: Chest Pain Ondansetron HCl (Zofran Odt) 4 mg PO Q6H PRN PRN Reason: Nausea/Vomiting Ondansetron HCl (Zofran) 4 mg IVP Q6H PRN PRN Reason: Nausea/Vomiting Pantoprazole Sodium (Protonix) 40 mg PO 2100 [facility] Last Admin: 08/30/17 20:48 Dose: 40 mg Phenol (Chloraseptic [place] 180 Ml Bot) 0 ml PO PRN PRN PRN Reason: Sore Throat Last Admin: 08/30/17 17:53 Dose: 1 spr Senna (Senokot) 2 tab PO HSPRN PRN PRN Reason: Constipation Sodium Bicarbonate (Bicarbonate, Sodium) 325 mg PO BID [facility] Last Admin: 08/31/17 08:02 Dose: 325 mg Sodium Chloride ([place] Nasal [place] 0.65%) 0 ml EA NARE QIDPRN PRN PRN Reason: Nasal Congestion Tramadol HCl (Ultram) 50 mg PO Q8H PRN PRN Reason: PAIN 4-6 Last Admin: 08/31/17 08:09 Dose: 50 mg Vitamin B Complex/Vit C/Folic Acid (Nephro-Paloma Tablet) 1 tab PO DAILY [facility] Last Admin: 08/31/17 08:02 Dose: 1 tab
[2017-08-31] MEDS ORDERED: cloNIDine 0.1 MG TAB PO PRN (12:45)
[2017-08-31] MEDS: HumaLOG 300 UNITS/3 ML VIAL SC PRN (15:58)
--- NOTE | 2017-08-31 18:38 | PRG ---
DATE OF SERVICE: 08/31/2017 SUBJECTIVE: Patient was seen and examined at bedside and overnight events noted. Patient denies any shortness of breath or chest pain or palpitation. No history of nausea or vomiting or diarrhea or f ever or chills or cramps. OBJECTIVE: GENERAL: This is an elderly female in no apparent distress. VITAL SIGNS: Temperature 97.7, pulse 60, respiratory rate 18, blood pressure 125/70. HEENT: Atraumatic, normocephalic. Oral mucosa is moist. NECK: Supple. CARDIOVASCULAR: S1, S2 heard. Rate and rhythm regular. RESPIRATORY: Clear to auscultation. GASTROINTESTINAL: Abdomen is soft. MUSCULOSKELETAL: No tenderness. No edema. DERMATOLOGIC: No skin rash. NEUROLOGIC: Alert and awake and oriented x3. No focal neurologic deficits. Moving all the extremiti es. PSYCHIATRIC: Mood and affect normal. LABORATORY DATA: Potassium is 4.4, BUN is 9, creatinine is 4.03, and hemoglobin is 7.9. ASSESSMENT AND PLAN: 1. End-stage renal disease, continue on hemodialysis. 2. Anemia, better. Continue on GEORGI. 3. Hypertension. 4. Edema, controlled. 5. Plan is to continue on dialysis as tolerated. We will follow.
[2017-08-31] MEDS: Atorvastatin Calcium 40 MG TAB PO SCH (20:49)
[2017-08-31] MEDS: Carvedilol 3.125 MG TAB PO SCH (20:50)
[2017-08-31] MEDS: Insulin Detemir 100 UNITS/ML 15 UNITS in Pre-Filled Syringe 1 EACH SC SCH (21:03)
[2017-09-01] MEDS: HYDROcodone/Acetaminophen 5/325 mg Tablet PO PRN (05:21)
[2017-09-01 07:55] VITALS: BP 149/71; TEMP 98.2
[2017-09-01] MEDS: Ferrous Sulfate 325 MG TAB PO SCH (08:46)
[2017-09-01] MEDS: Aspirin 325 MG TAB PO SCH (08:46)
[2017-09-01] MEDS: Amlodipine 10 MG TAB PO SCH (08:46)
[2017-09-01] MEDS: Epoetin (ESRD) 10,000 UNITS/ML VIAL IVP SCH (08:47)
[2017-09-01] MEDS: Folic Acid/Vit B Comp W-C PO SCH (08:47)
[2017-09-01] MEDS: Heparin 5,000 UNITS/ML VIAL SC SCH (08:47)
[2017-09-01] MEDS: Insulin Detemir 100 UNITS/ML 20 UNITS in Pre-Filled Syringe 1 EACH SC SCH (08:47)
[2017-09-01] MEDS: hydrALAZINE 25 MG TAB PO SCH (08:47)
[2017-09-01] MEDS: Carvedilol 3.125 MG TAB PO SCH (08:47)
[2017-09-01] MEDS: Sodium Bicarbonate Tab 325 MG TAB PO SCH (08:48)
[2017-09-01] MEDS: Levothyroxine Sodium 100 MCG TAB PO SCH (08:48)
--- NOTE | 2017-09-01 10:15 | PDOC.PN ---
- Subjective Encounter Start Date: 09/01/17 Encounter Start Time: 08:00 Patient seen and examined. No new complaints. No overnight events - Objective MAR Reviewed: Yes Vital Signs & Weight: Vital Signs (12 hours) Temp Pulse Resp BP Pulse Ox 09/01/17 08:47 71 09/01/17 08:46 71 09/01/17 07:15 98.2 F 71 20 149/71 H 94 L 09/01/17 03:50 98.1 F 67 18 139/77 94 L 09/01/17 01:36 98.5 F 68 20 145/74 H 93 L I&O: 08/31/17 09/01/17 09/02/17 06:59 06:59 06:59 Intake Total 480 1650 Balance 480 1650 Result Diagrams: 08/31/17 07:56 08/31/17 07:56 Additional Labs: Accuchecks 09/01/17 08/31/17 08/31/17 05:24 21:02 15:46 POC Glucose 81 212 H 226 H 08/31/17 11:10 POC Glucose 171 H Phys Exam - Physical Examination Constitutional: NAD HEENT: PERRLA, moist MMs, sclera anicteric Neck: no JVD, supple Respiratory: no wheezing, no rales, no rhonchi Cardiovascular: RRR, no significant murmur, no rub Gastrointestinal: soft, non-tender, no distention, positive bowel sounds Musculoskeletal: no edema, pulses present Neurological: non-focal, normal sensation, moves all 4 limbs Psychiatric: normal affect, A&O x 3 Skin: no rash, normal turgor Dx/Plan (1) Acute on chronic diastolic (congestive) heart failure Code(s): I50.33 - ACUTE ON CHRONIC DIASTOLIC (CONGESTIVE) HEART FAILURE Status : Resolved (2) ESRD needing dialysis Code(s): N18.6 - END STAGE RENAL DISEASE; Z99.2 - DEPENDENCE ON RENAL DIALYSIS Status: Acute Comment: now on HD (3) Elevated troponin Code(s): R74.8 - ABNORMAL LEVELS OF OTHER SERUM ENZYMES Status: Chronic (4) Pneumonia Code(s): J18.9 - PNEUMONIA, UNSPECIFIED ORGANISM Status: Acute (5) Uremia Code(s): N19 - UNSPECIFIED KIDNEY FAILURE Status: Resolved (6) Anemia of renal disease Code(s): D63.1 - ANEMIA IN CHRONIC KIDNEY DISEASE Status: Chronic (7) CKD (chronic kidney disease) stage 5, GFR less than 15 ml/min Code(s): N18.5 - CHRONIC KIDNEY DISEASE, STAGE 5 Status: Chronic (8) Hypertension Code(s): I10 - ESSENTIAL (PRIMARY) HYPERTENSION Status: Chronic Qualifiers: (9) Hypothyroidism Code(s): E03.9 - HYPOTHYROIDISM, UNSPECIFIED Status: Chronic Qualifiers: (10) Metabolic acidosis Code(s): E87.2 - ACIDOSIS Status: Chronic (11) Secondary hyperparathyroidism of renal origin Code(s): N25.81 - SECONDARY HYPERPARATHYROIDISM OF RENAL ORIGIN Status: Chronic (12) Type 2 diabetes mellitus Status: Chronic Qualifiers: - Plan cont current plan of care, bilingual social worker * medication reviewed as below * symptomatic treatment * see discharge summery. friedman after dialysis today. Review of Systems - Review of Systems ENT: negative: Ear Pain, Ear Discharge, Nose Pain, Nose Discharge, Nose Congestion, Mouth Pain, Mouth Swelling, Throat Pain, Throat Swelling, Other Respiratory: negative: Cough, Dry, Shortness of Breath, Hemoptysis, SOB with Excertion, Pleuritic Pain, Sputum, Wheezing Cardiovascular: negative: chest pain, palpitations, orthopnea, paroxysmal nocturnal dyspnea, edema, light headedness, other Gastrointestinal: negative: Nausea, Vomiting, Abdominal Pain, Diarrhea, Constipation, Melena, Hematochezia, Other Genitourinary: negative: Dysuria, Frequency, Incontinence, Hematuria, Retention , Other Musculoskeletal: negative: Neck Pain, Shoulder Pain, Arm Pain, Back Pain, Hand Pain, Leg Pain, Foot Pain, Other Skin: negative: Rash, Lesions, Yosi, Bruising, Other - Medications/Allergies Allergies/Adverse Reactions: Allergies Allergy/AdvReac Type Severity Reaction Status Date / Time No Known Allergies Allergy Verified 08/12/17 14:07 Medications: Current Medications Acetaminophen (Tylenol) 650 mg PO Q4H PRN PRN Reason: Headache/Fever or Pain Hydrocodone Bitart/Acetaminophen ([place] 5/325) 1 tab PO Q4H PRN PRN Reason: Moderate Pain (4-6) Last Admin: 09/01/17 05:21 Dose: 1 tab Al Hydroxide/Mg Hydroxide (Maalox) 30 ml PO Q6H PRN PRN Reason: Heartburn or Indigestion Albuterol Sulfate (Proventil Hfa) 1 puff INH Q4H PRN PRN Reason: Wheezing Albuterol/Ipratropium (Duoneb) 3 ml NEB Q6H PRN PRN Reason: SOB &/or Wheezing Amlodipine Besylate (Norvasc) 10 mg PO DAILY [facility] Last Admin: 09/01/17 08:46 Dose: Not Given Artificial Tears (Tears Naturale) 0 drop EA EYE PRN PRN PRN Reason: Dry Eyes Aspirin (Aspirin) 325 mg PO DAILY [facility] Last Admin: 09/01/17 08:46 Dose: Not Given Atorvastatin Calcium (Lipitor) 80 mg PO [facility] Last Admin: 08/31/17 20:49 Dose: 80 mg Carvedilol (Coreg) 3.125 mg PO BID [facility] Last Admin: 09/01/17 08:47 Dose: Not Given Clonidine (Catapres) 0.1 mg PO Q4H PRN PRN Reason: SBP GREATER THAN 160 Dextrose/Water (Dextrose 50%) 25 gm SLOW IVP PRN PRN PRN Reason: Hypoglycemia Epoetin Germain (Procrit) 10,000 units IVP MoWeFr@0900 [facility] Last Admin: 09/01/17 08:47 Dose: Not Given Ferrous Sulfate (Feosol) 325 mg PO QAM-WM [facility] Last Admin: 09/01/17 08:46 Dose: Not Given Glucagon (Glucagon) 1 mg IM PRN PRN PRN Reason: Hypoglycemia Guaifenesin (Robitussin Sf) 200 mg PO Q4H PRN PRN Reason: Cough Heparin Sodium (Porcine) (Heparin) 5,000 units SC BID [facility] Last Admin: 09/01/17 08:47 Dose: Not Given Hydralazine HCl (Apresoline) 10 mg SLOW IVP Q4H PRN PRN Reason: Systolic BP > 180 Hydralazine HCl (Apresoline) 25 mg PO BID [facility] Last Admin: 09/01/17 08:47 Dose: Not Given Dextrose/Water (D5w) 1,000 mls @ 0 mls/hr IV .Q0M PRN; As Directed PRN Reason: Hypoglycemia Last Admin: 08/25/17 06:05 Dose: 1,000 mls Insulin Detemir 15 units/ (Miscellaneous Medication) 0.15 mls @ 0 mls/hr SC [facility] Last Admin: 08/31/17 21:03 Dose: 0.15 mls Insulin Detemir 20 units/ (Miscellaneous Medication) 0.2 mls @ 0 mls/hr SC QAM [facility] Last Admin: 09/01/17 08:47 Dose: Not Given Insulin Human Lispro (Humalog) 0 units SC .MODERATE SLIDING SC PRN PRN Reason: Moderate Correctional Scale Last Admin: 08/31/17 15:58 Dose: 4 unit Insulin Human Lispro (Humalog) 0 units SC .BEDTIME SLIDING SC PRN PRN Reason: Bedtime Correctional Scale Last Admin: 08/31/17 21:04 Dose: 2 unit Labetalol HCl (Normodyne) 20 mg SLOW IVP Q4H PRN PRN Reason: Systolic BP > 180 Levofloxacin (Levaquin) 500 mg PO Q2D@0600 [facility] Last Admin: 09/01/17 05:21 Dose: 500 mg Levothyroxine Sodium (Synthroid) 100 mcg PO DAILY [facility] Last Admin: 09/01/17 08:48 Dose: Not Given Loperamide HCl (Imodium) 2 mg PO PRN PRN PRN Reason: Diarrhea/Loose Stools Loratadine (Claritin) 10 mg PO DAILYPRN PRN PRN Reason: Sinus Symptoms Magnesium Hydroxide (Milk Of Magnesium) 30 ml PO DAILYPRN PRN PRN Reason: Constipation Last Admin: 08/28/17 13:14 Dose: 30 ml Mineral Oil/White Petrolatum (Eucerin Cream) 0 gm TOP BIDPRN PRN PRN Reason: Dry Skin Mometasone Furoate/Formoterol Fumar (Dulera 200 Mcg/5 Mcg Inhaler) 1 puff INH BID-RT [facility] Last Admin: 08/31/17 20:55 Dose: 1 puff Nitroglycerin (Nitrostat) 0.4 mg SL Q5MIN PRN PRN Reason: Chest Pain Ondansetron HCl (Zofran Odt) 4 mg PO Q6H PRN PRN Reason: Nausea/Vomiting Ondansetron HCl (Zofran) 4 mg IVP Q6H PRN PRN Reason: Nausea/Vomiting Pantoprazole Sodium (Protonix) 40 mg PO 2100 [facility] Last Admin: 08/31/17 20:50 Dose: 40 mg Phenol (Chloraseptic [place] 180 Ml Bot) 0 ml PO PRN PRN PRN Reason: Sore Throat Last Admin: 08/30/17 17:53 Dose: 1 spr Senna (Senokot) 2 tab PO HSPRN PRN PRN Reason: Constipation Sodium Bicarbonate (Bicarbonate, Sodium) 325 mg PO BID [facility] Last Admin: 09/01/17 08:48 Dose: Not Given Sodium Chloride ([place] Nasal [place] 0.65%) 0 ml EA NARE QIDPRN PRN PRN Reason: Nasal Congestion Tramadol HCl (Ultram) 50 mg PO Q8H PRN PRN Reason: PAIN 4-6 Last Admin: 08/31/17 08:09 Dose: 50 mg Vitamin B Complex/Vit C/Folic Acid (Nephro-Paloma Tablet) 1 tab PO DAILY [facility] Last Admin: 09/01/17 08:47 Dose: Not Given
--- NOTE | 2017-09-01 11:38 | DIS ---
DATE OF ADMISSION: 08/24/2017 DATE OF DISCHARGE: 09/01/2017 PRIMARY CARE PHYSICIAN: Edgar Adams D.O. DISCHARGE DISPOSITION: Home. PRIMARY DISCHARGE DIAGNOSES: 1. End-stage renal disease, started dialysis this admission. 2. Community-acquired pneumonia, treated in hospital. 3. Acute on chronic diastolic heart failure, improved. 4. Uremia, improved. SECONDARY DISCHARGE DIAGNOSES: Diabetes type 2, secondary hyperparathyroidism of renal origin, metab olic acidosis, hypothyroidism, hypertension, chronic kidney disease stage 5, and anemia of renal dise ase. PRIMARY PROCEDURE/OPERATION: Hemodialysis catheter placement and AV fistula. The patient was gettin g maintenance hemodialysis. RADIOLOGICAL INVESTIGATION: X-ray chest, marking ultrasound. SIGNIFICANT LABORATORY DATA: Hemoglobin 7.9, creatinine 4.03. Hepatitis profile negative. Blood cu lture negative. DISCHARGE MEDICATIONS: Amlodipine 10 mg p.o. daily, aspirin 325 mg p.o. daily, Lipitor 80 mg p.o. at bedtime, Symbicort 1 puff inhalation b.i.d., Coreg 6.25 mg p.o. b.i.d., clonidine 0.1 mg q.8 hourly p.r.n., ferrous sulfate 325 mg p.o. daily, Nephro-Paloma 1 tablet p.o. daily, hydralazine 25 mg p.o. b. i.d., Levemir insulin 20 units in the morning and 15 units at bedtime, Xopenex inhaler q.4 hourly, Sy nthroid 100 mcg p.o. daily, omeprazole 40 mg p.o. daily. CONTRAINDICATIONS: None. CODE STATUS: FULL CODE. INPATIENT CONSULTANTS: Dr. Daly was following for hemodialysis. Dr. Callahan was consulted for owen lysis access. TEST RESULTS PENDING ON DISCHARGE: None. ALLERGIES: No known drug allergy. DISCHARGE PLAN: Post hospital, patient will follow up with primary care physician. HOSPITAL COURSE: A 71-year-old female with above-mentioned medical problem who has gradually worseni ng of renal failure. She was having more shortness of breath and she was having uremia symptoms. Pl ease see my HPI for further details. This patient was needing dialysis and that is why we consulted Dr. Daly and he also agreed that this patient will need dialysis because she has approached ESRD. Dr. Callahan was consulted for dialysis access and after dialysis access, patient was getting dialysis while in hospital. During this admission, patient was given blood transfusion for her anemia. The patient will need Procrit with dialysis. During this admission, patient also found that her blood pressure was running low and that is why we have to make some adjustment in her blood pressure medication as above. Overall, this patient is stable. She has outpatient hemodialysis arranged by director case management. The doreen ent is seen and examined at bedside today. Please see my last progress note from today for further d etails.
[2017-09-01] MEDS: Mometasone/Formoterol 120 PUFF INHALER INH SCH (12:22)
[2017-09-01] MEDS ORDERED: Heparin 10,000 UNITS/ 10 ML VIAL ONE (14:45)
--- NOTE | 2017-09-01 23:51 | PRG ---
DATE OF SERVICE: 09/01/2017 SUBJECTIVE: Patient was seen and examined at bedside and overnight events noted. Patient denies any shortness of breath or chest pain or palpitation. No history of nausea or vomitin g or diarrhea or fever or chills or cramps. OBJECTIVE: GENERAL: This is an elderly female, in no apparent distress. VITAL SIGNS: Temperature 98.2, pulse 71, respiratory rate 16, blood pressure 149/71. HEENT: Atraumatic, normocephalic. Oral mucosa is moist NECK: Supple. CARDIOVASCULAR: S1 and S2 heard. Rate and rhythm regular. RESPIRATORY: Clear to auscultation. GASTROINTESTINAL: Abdomen is soft. MUSCULOSKELETAL: No tenderness. No edema. DERMATOLOGIC: No skin rash. NEUROLOGIC: Alert and awake and oriented x3. No focal neurologic deficits. Moving all the extremiti es. PSYCHIATRIC: Mood and affect normal. LABORATORY DATA: Potassium is 4.4, BUN 19, creatinine is 4.0. ASSESSMENT AND PLAN: 1. End-stage renal disease, currently on hemodialysis. 2. Anemia. 3. Hypertension. 4. Edema. Plan is to continue on dialysis as tolerated.
== END 2017-09-01 14:45 | disposition home or self-care (01) | DRG 252 ==
LOC: ERS 11:53 → SURG B 17:35
PROVIDERS: ADMIT Internal Medicine; ATTEND Internal Medicine
PROC: 03180JD Bypass Left Brachial Artery to Upper Arm Vein with Synthetic Substitute, Open Approach (ICD-10-PCS; principal; 2017-08-25)
PROC: 05JY0ZZ Inspection of Upper Vein, Open Approach (ICD-10-PCS; 2017-08-25)
PROC: 0JH63XZ Insertion of Tunneled Vascular Access Device into Chest Subcutaneous Tissue and Fascia, Percutaneous Approach (ICD-10-PCS; 2017-08-25)
PROC: 5A1D70Z Performance of Urinary Filtration, Intermittent, Less than 6 Hours Per Day (ICD-10-PCS; 2017-08-25)
PROC: 3E0T3BZ Introduction of Anesthetic Agent into Peripheral Nerves and Plexi, Percutaneous Approach (ICD-10-PCS; 2017-08-25)
PROC: 02HV33Z Insertion of Infusion Device into Superior Vena Cava, Percutaneous Approach (ICD-10-PCS; 2017-08-25)
PROC: B548ZZA Ultrasonography of Superior Vena Cava, Guidance (ICD-10-PCS; 2017-08-25)
PROC: 02H633Z Insertion of Infusion Device into Right Atrium, Percutaneous Approach (ICD-10-PCS; 2017-08-25)
PROC: B244ZZZ Ultrasonography of Right Heart (ICD-10-PCS; 2017-08-25)
PROC: 30233N1 Transfusion of Nonautologous Red Blood Cells into Peripheral Vein, Percutaneous Approach (ICD-10-PCS; 2017-08-27)
DX: I13.2 Hypertensive heart and chronic kidney disease with heart failure and with stage 5 chronic kidney disease, or end stage renal disease (principal); I50.33 Acute on chronic diastolic (congestive) heart failure; J18.9 Pneumonia, unspecified organism; E87.2 Acidosis; E11.22 Type 2 diabetes mellitus with diabetic chronic kidney disease; N18.6 End stage renal disease; N25.81 Secondary hyperparathyroidism of renal origin; Z99.2 Dependence on renal dialysis; E03.9 Hypothyroidism, unspecified; D63.1 Anemia in chronic kidney disease; Z79.4 Long term (current) use of insulin; K21.9 Gastro-esophageal reflux disease without esophagitis; Z86.73 Personal history of transient ischemic attack (TIA), and cerebral infarction without residual deficits; E88.09 Other disorders of plasma-protein metabolism, not elsewhere classified; J45.909 Unspecified asthma, uncomplicated; E55.9 Vitamin D deficiency, unspecified
CPT/HCPCS: 36415; 36416; 36430; 71010; 80053; 80069; 82553; 84484; 85025; 86580; 86704; 86706; 86803; 86850; 86900; 86901; 87040; 87340; 90935; 93005; 93970; 94640; 94760; 96365; 96375; A4216; C1752; C1769; G0257; G0365; J0670; J0696; J0885; J1644; J1815; J1956; J2001; J2250; J2405; J2543; J2704; J2720; J3010; J7050; J7620; L8670; P9016; Q4081

== ENCOUNTER 2018-02-18 07:03 | Outpatient (CLI) | payer BC ==
--- NOTE | 2018-02-18 08:46 | ULT ---
COMPLETE ABDOMEN ULTRASOUND: Date: 02/18/18 INDICATION: Abdominal pain for 1 day with acid reflux. FINDINGS: Visualized aspects of the abdominal aorta and IVC appear within normal limits. No focal hepatic lesi on seen. Visualized aspects of the pancreas appear within normal limits. There is a mobile echogenic focus within the gallbladder with posterior acoustic shadowing consistent with cholelithiasis. No gallbladder wall thickening or pericholecystic fluid is identified. Common b ile duct measures 5.0 mm. No sonographic Cole's sign is reported. The right kidney measures 10.3 x 4.5 x 4.3 cm. Left kidney measures 9.6 x 5.1 x 4.3 cm. There is a 1. 6 cm exophytic mixed echogenicity mass lesion off the left mid kidney. No hydronephrosis evident. The spleen measures 9.7 cm. IMPRESSION: 1. Complex cystic mass involving the left mid kidney. Further evaluation with a CT of the abdomen ut ilizing renal mass protocol is recommended. 2. Cholelithiasis. 3. No free fluid demonstrated. POS: TONY
== END 2018-02-18 07:04 | disposition home or self-care (01) ==
LOC: SCSULT 07:03
PROVIDERS: ATTEND Internal Medicine Nephrology
DX: R18.8 Other ascites (principal); K80.20 Calculus of gallbladder without cholecystitis without obstruction; N28.89 Other specified disorders of kidney and ureter
CPT/HCPCS: 76700

== ENCOUNTER 2018-03-11 16:13 | Outpatient (CLI) | payer BC ==
--- NOTE | 2018-03-11 18:34 | CT ---
PRE AND POSTCONTRAST ENHANCED CT IMAGES ABDOMEN 03/11/18 HISTORY: Abnormal left renal lesion. Pre and postcontrast enhanced CT images obtained. The lung bases are unremarkable. No evidence of free intraperitoneal air seen. The mitral annulus is calcified. Aortic valvular calcifications also seen. The liver and spleen are unremarkable. The pancreas is unremarkable. The gallbladder contains a small area of hyperechogenicity. See abdominal ultrasound findings. Nonobstructing small calculi seen in the mid pole of the right kidney. Tiny nonobstructing calculus a lso seen in the upper pole of the left kidney. The exophytic left renal lesion diameter measuring 1.6 cm is again seen. This lesion does not signifi cantly enhance on the contrast enhanced images suggesting this likely is a cyst, possibly complex as seen on sonography. Repeat renal ultrasound in six months may be of use. There is a moderate sized umbilical hernia. IMPRESSION: No evidence of significant enhancement seen in the left renal cyst or cystic lesion. Continue with fo llowup sonography. POS: TONY
== END 2018-03-11 16:14 | disposition home or self-care (01) ==
LOC: SCSCT 16:13
PROVIDERS: ATTEND Internal Medicine Nephrology
DX: N28.89 Other specified disorders of kidney and ureter (principal)
CPT/HCPCS: 74170; 82565

== ENCOUNTER 2018-09-15 10:42 | Outpatient (CLI) | payer MEDICARE ==
--- NOTE | 2018-09-15 11:36 | MMO ---
BILATERAL MAMMOGRAMS: DATE: 09/15/18 HISTORY: Screening mammography. COMPARISON: Unavailable. Baseline study. FINDINGS: Scattered fibroglandular densities. Dense arterial calcification. No dominant mass or suspicious calc ifications. The study was evaluated with the assistance of computer-aided detection. IMPRESSION: BIRADS 1: Negative Atherosclerosis. Suggest routine radiographic follow-up. POS: TONY
== END 2018-09-15 10:43 | disposition home or self-care (01) ==
LOC: SCSMAMMO 10:42
PROVIDERS: ATTEND Family Medicine
DX: Z12.31 Encounter for screening mammogram for malignant neoplasm of breast (principal)
CPT/HCPCS: 77067

== ENCOUNTER 2019-02-23 06:58 | Day surgery (SDC) | payer MEDICARE, BC, MEDICAID ==
[2019-02-22 13:24] VITALS: BMI 24.3
[2019-02-23] MEDS ORDERED: Heparin 1,000 UNITS/ML VIAL ONE (09:00)
--- NOTE | 2019-02-23 09:48 | SPC ---
EXAM: SPC INTRO CATH DIALY CIRC/AV S PROVIDED CLINICAL HISTORY: Increased bleeding from arteriovenous dialysis fistula after dialysis. End-stage renal disease. Patie nt has left upper extremity arteriovenous dialysis graft. COMPARISON: None Fluoroscopy: Total time 1.7 minutes with total dose of 17,036 mGy centimeter squared. TECHNIQUE: The procedure including the risks and complications were explained to the patient, and informed conse nt was obtained. The patient was placed on the angiography table in the supine position. The left upper extremity was meticulously prepped and draped in the usual sterile fashion. Skin and subcutaneous tissues overlying the proximal inflow of the left upper extremity arteriovenous dialysis fistula were infiltrated with buffered 1% lidocaine for local anesthesia at the intended puncture site. The graft was accessed in the venous direction utilizing micropuncture technique, a 5 Macedonian introducer sheath was placed. A fistulogram and venogram to the SVC were performed. Manual compression was applied to the venous outflow, and contrast was injected to reflux the arteriovenous anastomosis. Focal area of narrowing was seen at the venous anastomosis, and as a result, the introducer sheath wa s exchanged over a 0.035 inch [employer] guidewire for a 5 Macedonian vascular sheath. A 6 mm x 4 cm angioplasty balloon was placed across the focal area of stenosis. A waist was present within the chase oplasty balloon, but the angioplasty balloon didn't achieve full profile. The angioplasty balloon was removed, and a fistulogram was performed demonstrating improvement in luminal diameter; although, the area of narrowing did persist. The angioplasty balloon was again replaced, and CASTING DIRECTOR at the focal area of narrowing was again performed. At this time, no waist was present within the angioplast y balloon, and the angioplasty balloon achieved for profile without difficulty. The angioplasty balloon was removed, and a final fistulogram was performed which does demonstrate resolution of the m ore severe focal area of narrowing at the venous anastomosis with persistent narrowing present.. However, flow within the fistula is improved post angioplasty. The guidewire as well as vascular sheath were removed, hemostasis was achieved with direct pressure. Patient tolerated the procedure well without immediate consultation. Sterile dressing was placed. Patient was transported to radiology nurses holding area for further mon itoring prior to discharge. IMPRESSION: 1. Focal severe stenosis at the venous anastomosis with CASTING DIRECTOR to 6 mm diameter. There is improvement in luminal diameter; although, the narrowing did persist. Flow through the fistula was improved post angioplasty, as result larger profile diameter balloon was not placed at this time. 2. Patent arteriovenous anastomosis.
[2019-02-23] MEDS ORDERED: Iopamidol 300 61% 100 ML VIAL FS ONE (11:00)
== END 2019-02-23 11:10 | disposition home or self-care (01) ==
LOC: SPEC 06:58
PROVIDERS: ATTEND Internal Medicine Nephrology
PROC: B51W1ZZ Fluoroscopy of Dialysis Shunt/Fistula using Low Osmolar Contrast (ICD-10-PCS; principal; 2019-02-23)
PROC: 037Y3ZZ Dilation of Upper Artery, Percutaneous Approach (ICD-10-PCS; 2019-02-23)
DX: T82.858A Stenosis of other vascular prosthetic devices, implants and grafts, initial encounter (principal); T82.838A Hemorrhage due to vascular prosthetic devices, implants and grafts, initial encounter; I12.0 Hypertensive chronic kidney disease with stage 5 chronic kidney disease or end stage renal disease; E11.22 Type 2 diabetes mellitus with diabetic chronic kidney disease; N18.6 End stage renal disease; D63.1 Anemia in chronic kidney disease; E78.5 Hyperlipidemia, unspecified; I69.354 Hemiplegia and hemiparesis following cerebral infarction affecting left non-dominant side; E03.9 Hypothyroidism, unspecified; K21.9 Gastro-esophageal reflux disease without esophagitis; Z79.4 Long term (current) use of insulin; Z79.51 Long term (current) use of inhaled steroids; Z79.82 Long term (current) use of aspirin; Z79.899 Other long term (current) drug therapy; Z99.2 Dependence on renal dialysis
CPT/HCPCS: 36901; 36902; C1725; J1644

== ENCOUNTER 2019-11-05 10:30 | Observation (INO) | payer MEDICARE, BC, MEDICAID ==
[2019-11-05 11:17] LABS: #Basophils 0.1 thou/uL (0.0-0.2); #Eosinphils 0.2 thou/uL (0.0-0.7); #Lymphocytes 1.6 thou/uL (1.20-3.40); #Monocytes 0.7 thou/uL (0.11-0.59); %Basophils 0.6 % (0.0-1.0); %Eosinophils 1.6 % (0.0-10.0); %Lymphocytes 15.1 % (21.0-51.0); %Monocytes 6.4 % (0.0-10.0); %Neutrophils 76.4 % (42.0-75.0); Hemoglobin 11.4 g/dL (12.0-16.0); Mean Corpuscular HGB CONC 33.5 g/dL (32.0-36.0); Mean Corpuscular Hemoglobin 30.2 pg (27.0-31.0); Mean Corpuscular Volume 90.3 fL (78.0-98.0); Mean Platelet Volume 7.6 fL (7.4-10.4); Platelet Count 242 thou/uL (130-400); RBC Distribution Width 12.9 % (11.5-14.5); Red Blood Cell (RBC) Count 3.78 mill/uL (4.20-5.40); White Blood Cell (WBC) Count 10.5 thou/uL (4.8-10.8)
--- NOTE | 2019-11-05 11:30 | RAD ---
PORTABLE CHEST ONE VIEW: 11/05/2019 10:40 a.m. HISTORY: Weakness. Shortness of breath. Sore throat. Tachycardia. COMPARISON: 08/25/2017 FINDINGS: The heart is enlarged. Mild dependent changes are seen at the lung bases. No lobar consolidation, pne umothoraces or large effusions are seen. There is no evidence of roma pulmonary edema. There are deg enerative changes in the spine. POS: [facility]
[2019-11-05 11:35] LABS: CK (CPK) 110 U/L (29-168); Lipase 34 U/L (8-78)
[2019-11-05 11:36] LABS: ALT (SGPT) 18 U/L (8-55); AST (SGOT) 20 U/L (5-34); Albumin 4.5 g/dL (3.4-4.8); Alkaline Phosphatase 184 U/L (40-110); Anion Gap 15 mmol/L (10-20); BUN (Urea Nitrogen) 25 mg/dL (9.8-20.1); Calc. Creatinine Clearance 0 mL/min (70-130); Calcium 9.7 mg/dL (7.8-10.44); Carbon Dioxide 32 mmol/L (23-31); Chloride 97 mmol/L (98-107); Estimated GFR-MDRD 9; Globulin 2.8 g/dL (2.4-3.5); Glucose 252 mg/dL (83-110); Magnesium 1.9 mg/dL (1.6-2.6); Phosphorus 3.7 mg/dL (2.3-4.7); Potassium 3.7 mmol/L (3.5-5.1); Protein, Total 7.3 g/dL (6.0-8.3); Sodium 140 mmol/L (136-145)
[2019-11-05 11:57] LABS: CKMB 2.6 ng/mL (0-6.6)
[2019-11-05 12:19] LABS: Bacteria/HPF 3+ HPF (None Seen); Bilirubin Negative (Negative); Blood, Urine Trace (Negative); Clarity Clear (Clear); Glucose, Urine (Dipstick) 200 mg/dL (Negative); Leukocyte Negative Leu/uL (Negative); Nitrite Negative (Negative); Protein, Urine (Dipstick) 300 mg/dL (Neg-Trace); Squamous Epithelial 0-3 HPF (0-3); WBC/HPF 0-3 HPF (0-3)
[2019-11-05] MEDS ORDERED: Aspirin Chewable 81 MG TAB ONE (12:48)
[2019-11-05] MEDS ORDERED: hydrALAZINE 20 MG/ML VIAL ONE (12:48)
--- NOTE | 2019-11-05 13:20 | PDOC.FPRHP ---
- History of Present Illness Chief Complaint: heart palpitations History of Present Illness: This is a 74-yo F w/ HTN, T2DM, hypothyroidism, and ESRD on HD who presents after experiencing heart palpitations. This occurred yesterday when she got up from bed and walked to the bathroom and resolved when she laid back down. It occurred again today so she presented to the ED. Reports mild chest pain over R anterior ribs when taking a deep breath, otherwise no pain. No syncope, lightheadedness, headache, sweating, or nausea w/ the palpitations. No recent changes to medication regimen. Had an Echo in 2017 but was discharged from cardiology and only to follow up as needed. ED Course: given aspirin and hydralazine - Allergies/Adverse Reactions Allergies Allergy/AdvReac Type Severity Reaction Status Date / Time No Known Allergies Allergy Verified 11/05/19 16:43 - Home Medications Medication Instructions Recorded Confirmed Type Amlodipine [Norvasc] 10 mg PO DAILY 07/09/17 11/05/19 History Aspirin 325 mg PO DAILY 07/09/17 11/05/19 History Atorvastatin Calcium 80 mg PO HS 07/09/17 11/05/19 History Budesonide-Formoterol [Symbicort 1 puff INH BID 07/09/17 11/05/19 History 160-4.5] Insulin Detemir 100 UNITS/ML 10 unit SQ HS 07/09/17 11/05/19 History [Levemir] Insulin Detemir 100 UNITS/ML 20 unit SQ QAM 07/09/17 11/05/19 History [Levemir] Levalbuterol Tartrate [Xopenex HFA 1 puff INH Q4HR PRN 07/09/17 11/05/19 History Inhaler] Levothyroxine Sodium [Synthroid] 100 mcg PO DAILY 07/09/17 11/05/19 History Carvedilol [Coreg] 6.25 mg PO BID #60 tab 09/01/17 11/05/19 Rx hydrALAZINE HCl [Hydralazine HCl] 25 mg PO BID 02/22/19 11/05/19 History B-Complex W/ C & Folic Acid 1 tab PO DAILY 11/05/19 11/05/19 History [[facility]] Furosemide 40 mg PO BID 11/05/19 11/05/19 History Omeprazole 40 mg PO DAILY 11/05/19 11/05/19 History - History PMHx: T2DM, HTN, ESRD w/ HD on MWF, GERD, Hypothyroidism, Hx of Stroke in 2016 w / left sided weakness which improved after PT PSHx: right cataract, Surgical history of orthopedic surgery, right ankle. upper gi series and colonoscopy, FISTULA LT ARM. FHx: noncontributory Social: - denies smoking, drinking alcohol, drugs - Review of Systems General: denies: fever/chills, weight/appetite/sleep changes, fatigue Eyes: denies: vision changes ENT: denies: nasal congestion Respiratory: denies: cough, shortness of breath Cardiovascular: reports: chest pain (see HPI), palpitation. denies: edema Gastrointestinal: denies: nausea, vomiting, diarrhea, abdominal pain, GI bleeding Genitourinary: denies: dysuria Skin: denies: rashes Musculoskeletal: denies: pain Neurological: denies: syncope, weakness Psychological: denies: anxiety, depression - Vital signs BP: 205/82, Pulse: 72, Resp: 15, Pain: 0, O2 sat: 100 on (Room Air), Time: 2019 11:33. - Physical Exam Constitutional: NAD, awake, alert and oriented HEENT: normocephalic and atraumatic, PERRLA, EOMI, no scleral icterus, grossly normal vision, TM's clear and intact, grossly normal hearing Neck: supple Heart: RRR, normal S1/S2 (3/6 systolic murmur) Lungs: CTAB, no respiratory distress Abdomen: soft, non-tender, bowel sounds present Musculoskeletal: normal structure, normal tone Skin: no rash/lesions Heme/Lymphatic: no unusual bruising or bleeding Psychiatric: normal mood and affect FMR H&P: Results - Labs Result Diagrams: 11/05/19 10:48 11/05/19 10:49 Lab results: WBC 10.5 thou/uL (4.8-10.8) 11/05/19 10:48 Hgb 11.4 g/dL (12.0-16.0) L 11/05/19 10:48 Hct 34.2 % (36.0-47.0) L 11/05/19 10:48 MCV 90.3 fL (78.0-98.0) 11/05/19 10:48 Plt Count 242 thou/uL (130-400) 11/05/19 10:48 Neutrophils % 76.4 % (42.0-75.0) H 11/05/19 10:48 Sodium 140 mmol/L (136-145) 11/05/19 10:49 Potassium 3.7 mmol/L (3.5-5.1) 11/05/19 10:49 Chloride 97 mmol/L (98-107) L 11/05/19 10:49 Carbon Dioxide 32 mmol/L (23-31) H 11/05/19 10:49 BUN 25 mg/dL (9.8-20.1) H 11/05/19 10:49 Creatinine 5.44 mg/dL (0.6-1.1) H 11/05/19 10:49 Glucose 252 mg/dL (83-110) H 11/05/19 10:49 Calcium 9.7 mg/dL (7.8-10.44) 11/05/19 10:49 Total Bilirubin 1.0 mg/dL (0.2-1.2) 11/05/19 10:49 AST 20 U/L (5-34) 11/05/19 10:49 ALT 18 U/L (8-55) 11/05/19 10:49 Alkaline Phosphatase 184 U/L (40-110) H 11/05/19 10:49 Creatine Kinase 110 U/L (29-168) 11/05/19 10:48 CK-MB (CK-2) 2.6 ng/mL (0-6.6) 11/05/19 10:49 Serum Total Protein 7.3 g/dL (6.0-8.3) 11/05/19 10:49 Albumin 4.5 g/dL (3.4-4.8) 11/05/19 10:49 Lipase 34 U/L (8-78) 11/05/19 10:48 Urine Ketones Negative mg/dL (Negative) 11/05/19 11:51 Urine Blood Trace (Negative) A 11/05/19 11:51 Urine Nitrite Negative (Negative) 11/05/19 11:51 Ur Leukocyte Esterase Negative Dulce/uL (Negative) 11/05/19 11:51 Urine RBC 4-6 HPF (0-3) A 11/05/19 11:51 Urine WBC 0-3 HPF (0-3) 11/05/19 11:51 Ur Squamous Epith Cells 0-3 HPF (0-3) 11/05/19 11:51 Urine Bacteria 3+ HPF (None Seen) A 11/05/19 11:51 - EKG Interpretation EKG: NSR w/ LVH and nonspecific T wave changes - Radiology Interpretation Chest x-ray Status: report reviewed by me (enlarged heart, no pulmonary edema) FMR H&P: A/P - Problem List (1) Palpitations Current Visit: Yes Status: Acute Code(s): R00.2 - PALPITATIONS (2) ESRD needing dialysis Current Visit: No Status: Chronic Code(s): N18.6 - END STAGE RENAL DISEASE; Z99.2 - DEPENDENCE ON RENAL DIALYSIS Comment: now on HD (3) Anemia of renal disease Current Visit: No Status: Chronic Code(s): D63.1 - ANEMIA IN CHRONIC KIDNEY DISEASE (4) Hypertension Current Visit: No Status: Chronic Code(s): I10 - ESSENTIAL (PRIMARY) HYPERTENSION Qualifiers: (5) Hypothyroidism Current Visit: No Status: Chronic Code(s): E03.9 - HYPOTHYROIDISM, UNSPECIFIED Qualifiers: (6) Type 2 diabetes mellitus Current Visit: No Status: Chronic Qualifiers: - Plan Heart palpitations - overnight monitoring on telemetry to see if patient has abnormal rhythm - labs to rule out other medical cause of palpitations such as TSH and electrolytes - Echo ordered - pending clinical course, consider outpatient cardiology consult for event monitor or loop recorder HTN - resume home meds - hydralazine prn T2DM - resume home meds ESRD on HD, MWF - if staying at length tomorrow, consult nephrology for HD treatment - dose all meds for HD patient GERD Hypothyroidism Asthma - continue home meds Code: full VTE ppx: SCDs. Consider heparin if prolonged stay tomorrow. GI ppx: continue home GERD meds Disposition/LOS: telemetry obs. LOS < 48 H. FMR H&P: Upper Level - Plan Date/Time: 11/05/19 1320 Nathan Mcgrath DO, have evaluated this patient and agree with findings/plan as outlined by music industry intern resident. Pertinent changes/additions are listed here. HPI Ms. Sue is a 74 yo F with a pmhx sig for ESRD on dialysis MWF, hx of CVA Overnight she had two episodes of palpitations, one while she was moving to the restroom and another one at rest. She has not had this happen before and denies any dyspnea, chest pain, or presyncope during this episode. She reports her blood pressure has been difficult to control and the numbers seen in the ED are her baseline. She currently denies any fever, orthopnea, cough, chest pain, dysuria or abdominal pain. Has been taking meds as prescribed and had dialysis this Wednesday. PE General: NAD HEENT: NCAT, L sided Facial droop Chest: even inspiratory and expiratory effort, no retractions, CTAB, RRR, EULALIO Abdomen: non distended, NTTP MSK: no weakness, or loss of ROM noted Extremities: non-edematous, pulses present Neuro: grossly intact, no focal deficits See music industry intern portion for full ROS, PE, labs and vitals. A/P Palpitations - EKG shows LVH, no ST changes, NSR. TSH, mag/phos, wnl. - CXR shows enlarged cardiac silhouette, possible effusion - troponin near prior values, continue to trend - ekg/nitro for chest pain, monitor on tele obs - monitor on Tele overnight, consider cards consult and/or event recorder Hx of CVA - baseline weakness, monitor See music industry intern note for mgmt. of chronic diseases Dispo: LOS<48hrs Addendum - Attending - Attending Attestation Date/Time: 11/05/19 2403 I personally evaluated the patient and discussed the management with Dr. Valdez /Radu. I agree with the History, Examination, Assessment and Plan documented above with any addition or exceptions noted below. Patient here for new onset palpitations. She denies history of similar symptoms. She denies chest pain, syncope, dyspnea during palpitations. Occurred transiently and on 2 occasions during the past 24 hours. Patient exam benign. Her vitals are stable. Troponins indeterminate but in the setting of ESRD. Patient will be observed on telemetry, continue cardiac monitoring. Obtain Echo in the setting of previous cardiac structural disease. Further mgmt pending clinical course.
[2019-11-05] MEDS ORDERED: Dextrose 50% Abboject 50 ML SYRINGE SLOW IVP PRN (13:24)
[2019-11-05] MEDS ORDERED: Dextrose 5% in Water 1,000 ML IV PRN (13:24)
[2019-11-05] MEDS ORDERED: Ondansetron PF 4 MG/2 ML Vial IVP PRN (13:24)
[2019-11-05] MEDS ORDERED: Acetaminophen 325 MG TAB PO PRN (13:24)
[2019-11-05] MEDS ORDERED: Ondansetron ODT 4 MG TAB PO PRN (13:24)
[2019-11-05] MEDS ORDERED: Nitroglycerin 0.4 MG TAB (25 Tab Bottle) PO PRN (13:24)
[2019-11-05] MEDS ORDERED: HumaLOG 300 UNITS/3 ML VIAL SC PRN ×2 (13:24)
[2019-11-05] MEDS ORDERED: hydrALAZINE 20 MG/ML VIAL SLOW IVP PRN (14:14)
[2019-11-05 15:22] LABS: Troponin I 0.029 ng/mL (< 0.028)
[2019-11-05 16:32] VITALS: BMI 27.9
[2019-11-05 17:34] LABS: Troponin I 0.031 ng/mL (< 0.028)
[2019-11-05] MEDS ORDERED: PROVENTIL INHALER 6.7 G (200 INHALATIONS) INH PRN (17:53)
[2019-11-05] MEDS ORDERED: Carvedilol 6.25 MG TAB PO SCH ×2 (18:15→21:00)
[2019-11-05] MEDS ORDERED: Amlodipine 10 MG TAB PO SCH (18:15)
[2019-11-05] MEDS ORDERED: hydrALAZINE 25 MG TAB PO SCH (18:15)
[2019-11-05] MEDS: Mometasone/Formoterol 120 PUFF INHALER INH SCH (19:10)
[2019-11-05] MEDS: Furosemide 40 MG TAB PO SCH (20:11)
[2019-11-05] MEDS ORDERED: Atorvastatin Calcium 40 MG TAB PO SCH (21:00)
[2019-11-05] MEDS ORDERED: Non-Formulary Item 1 EACH (Insulin Detemir 100 Units/Ml [Levemir] 10 UNIT) SQ SCH (21:00)
[2019-11-05] MEDS ORDERED: Insulin Glargine 10 UNITS in Pre-Filled Syringe 1 EACH SC SCH (21:00)
[2019-11-06 04:49] LABS: #Basophils 0.1 thou/uL (0.0-0.2); #Eosinphils 0.1 thou/uL (0.0-0.7); #Lymphocytes 1.7 thou/uL (1.20-3.40); #Monocytes 0.6 thou/uL (0.11-0.59); #Neutrophils 5.6 thou/uL (1.40-6.50); %Basophils 0.9 % (0.0-1.0); %Eosinophils 1.7 % (0.0-10.0); %Lymphocytes 20.4 % (21.0-51.0); %Monocytes 7.8 % (0.0-10.0); %Neutrophils 69.2 % (42.0-75.0); Hemoglobin 9.4 g/dL (12.0-16.0); Mean Corpuscular HGB CONC 34.4 g/dL (32.0-36.0); Mean Corpuscular Hemoglobin 31.1 pg (27.0-31.0); Mean Corpuscular Volume 90.2 fL (78.0-98.0); Platelet Count 187 thou/uL (130-400); RBC Distribution Width 12.9 % (11.5-14.5); Red Blood Cell (RBC) Count 3.04 mill/uL (4.20-5.40); White Blood Cell (WBC) Count 8.2 thou/uL (4.8-10.8)
[2019-11-06 05:12] LABS: Anion Gap 13 mmol/L (10-20); BUN (Urea Nitrogen) 33 mg/dL (9.8-20.1); Calc. Creatinine Clearance 10 mL/min (70-130); Carbon Dioxide 31 mmol/L (23-31); Chloride 100 mmol/L (98-107); Estimated GFR-MDRD 8; Glucose 215 mg/dL (83-110); Potassium 3.9 mmol/L (3.5-5.1); Sodium 140 mmol/L (136-145)
--- NOTE | 2019-11-06 05:42 | PDOC.FM ---
- Subjective Subjective: Pt denies palpitations overnight. Denies SOB, LH, ADAMS, dizziness. Tele overnight: 60-[address] depressions. - Objective MAR Reviewed: Yes Vital Signs & Weight: Vital Signs (12 hours) Temp Pulse Resp BP BP BP BP 11/06/19 04:16 98.0 F 70 15 155/76 H 11/05/19 23:28 98.8 F 73 16 162/79 H 11/05/19 19:42 98.8 F 72 16 172/87 H 172/84 H 172/79 H 11/05/19 19:10 75 16 11/05/19 18:09 74 16 180/85 H Pulse Ox 11/06/19 04:16 95 11/05/19 23:28 96 11/05/19 19:42 94 L 11/05/19 19:10 95 11/05/19 18:09 95 Weight Weight 74.843 kg I&O: 11/04/19 11/05/19 11/06/19 05:59 06:59 06:59 Intake Total 240 Balance 240 Result Diagrams: 11/06/19 04:40 11/06/19 04:40 Phys Exam - Physical Examination Constitutional: NAD HEENT: moist MMs, sclera anicteric Neck: no nodes, no JVD, supple, full ROM Respiratory: no wheezing, no rales, no rhonchi, clear to auscultation bilateral Cardiovascular: RRR, no rub 3/6 systolic murmur loudest over aortic valve Gastrointestinal: soft, non-tender, no distention Musculoskeletal: no edema, pulses present Neurological: non-focal, moves all 4 limbs Psychiatric: normal affect, A&O x 3 Skin: no rash, normal turgor Dx/Plan (1) Palpitations Code(s): R00.2 - PALPITATIONS Status: Acute (2) Anemia of renal disease Code(s): D63.1 - ANEMIA IN CHRONIC KIDNEY DISEASE Status: Chronic (3) Elevated troponin Code(s): R74.8 - ABNORMAL LEVELS OF OTHER SERUM ENZYMES Status: Chronic (4) Hypertension Code(s): I10 - ESSENTIAL (PRIMARY) HYPERTENSION Status: Chronic Qualifiers: (5) Hypothyroidism Code(s): E03.9 - HYPOTHYROIDISM, UNSPECIFIED Status: Chronic Qualifiers: (6) Type 2 diabetes mellitus Status: Chronic Qualifiers: (7) ESRD needing dialysis Code(s): N18.6 - END STAGE RENAL DISEASE; Z99.2 - DEPENDENCE ON RENAL DIALYSIS Status: Chronic - Plan Plan: Heart palpitations - overnight monitoring on telemetry showed no arrhythmia, sinus rate 60-[address] depressions. - TSH 2.38, Mag 1.9, Phos 3.7 - Echo ordered - pending clinical course, consider outpatient cardiology consult for event monitor or loop recorder HTN - resume home meds - hydralazine prn T2DM - resume home meds ESRD on HD, MWF - if staying at length today, consult nephrology for HD treatment - dose all meds for HD patient - Troponin elevated, likely 2/2 renal function 0.033, 0.029, 0.031 GERD Hypothyroidism Asthma - continue home meds Code: full VTE ppx: SCDs. Consider heparin if prolonged stay today. GI ppx: continue home GERD meds Disposition/LOS: telemetry obs. LOS < 48 H. Addendum - Attending - Attending Attestation Date/Time: 11/06/19 [id number] I personally evaluated the patient and discussed the management with Dr. Chappell. I agree with the History, Examination, Assessment and Plan documented above with any addition or exceptions noted below. Patient doing well. Stable for discharge with further outpatient follow up.
[2019-11-06] MEDS ORDERED: Levothyroxine Sodium 100 MCG TAB PO SCH (06:00)
[2019-11-06] MEDS ORDERED: Carvedilol 6.25 MG TAB PO SCH (08:00)
[2019-11-06] MEDS ORDERED: Aspirin 325 MG TAB PO SCH (08:00)
[2019-11-06] MEDS: Mometasone/Formoterol 120 PUFF INHALER INH SCH (08:08)
[2019-11-06 08:20] VITALS: TEMP 97.9
[2019-11-06] MEDS: Furosemide 40 MG TAB PO SCH (08:46)
[2019-11-06] MEDS ORDERED: Amlodipine 10 MG TAB PO SCH (09:00)
[2019-11-06] MEDS ORDERED: Folic Acid/Vit B Comp W-C PO SCH (09:00)
[2019-11-06] MEDS ORDERED: hydrALAZINE 25 MG TAB PO SCH (09:00)
[2019-11-06] MEDS ORDERED: Insulin Glargine 20 UNITS in Pre-Filled Syringe 1 EACH SC SCH (09:00)
[2019-11-06] MEDS ORDERED: Non-Formulary Item 1 EACH (Insulin Detemir 100 Units/Ml [Levemir] 20 UNIT) SQ SCH (09:00)
[2019-11-06 11:30] VITALS: BP 140/60
--- NOTE | 2019-11-06 12:46 | DIS ---
DATE OF ADMISSION: 11/05/2019 DATE OF DISCHARGE: 11/06/2019 RESIDENT: Claudia Chappell DO ADMITTING ATTENDING: Dr. Blevins. DISCHARGE ATTENDING: Dr. Blevins. CONSULT: None. PROCEDURES: Echocardiogram taken, Echo showed EF 60-65%, Grade 1/3 diastolic dysfunction, and mild LVH. DIAGNOSES: 1. Palpitations. 2. Hypertension. 3. Type 2 diabetes mellitus. 4. End-stage renal disease, on hemodialysis, Wednesday, Wednesday, and Wednesday. 5. Gastroesophageal reflux disease. 6. Hypothyroidism. 7. Asthma. DISCHARGE MEDICATIONS: 1. Norvasc 10 mg p.o. daily. 2. Aspirin 325 mg p.o. daily. 3. Atorvastatin 80 mg p.o. nightly. 4. Vitamin B complex with folic acid one tablet p.o. daily. 5. Symbicort one puff inhaled b.i.d. 6. Carvedilol 6.25 p.o. b.i.d. 7. Lasix 40 mg p.o. b.i.d. 8. Hydralazine 25 mg p.o. b.i.d. 9. Xopenex inhaler one puff inhaled q.4 hours p.r.n. for wheezing, Synthroid 100 mcg p.o. daily, omeprazole 40 mg p.o. daily, and Levemir 20 units subcu every morning and 10 units subcu nightly. HISTORY OF PRESENT ILLNESS/HOSPITAL COURSE: Ms. Sue is a 74-year-old female with a history of hypertension; ESRD, on hemodialysis Wednesday, Wednesday, and Wednesday; type 2 diabetes mellitus, hypothyroidism, asthma, and CVA in 2016, comes in because she experienced a couple of episodes of heart palpitations on the previous day with some atypical chest pain. She was admitted and monitored on telemetry overnight. She did not have any ectopy on telemetry. She was sinus rhythm, rate 60s to 70s with ST depressions while observed here and no more palpitation episodes. The patient denied any kind of chest pain, lightheadedness, shortness of breath. However, she does have a systolic 3/6 ejection murmur auscultated, an echo was taken and our patient is instructed to follow up outpatient with Cardiology for further workup. Echo showed EF 60-65%, Grade 1/3 diastolic dysfunction, and mild LVH. TSH was 2.38, phosphorus 3.7, Mag 1.9. Troponins were indeterminately elevated. This is likely due to her creatinine function. Her blood pressure elevated on day of discharge, but today is her dialysis day. This is likely secondary to her need to be dialyzed and we will discharge her home so that she can go to her dialysis center for hemodialysis today. The patient is agreeable to plan with outpatient cardiac followup and recommended to follow up with primary care physician for referral in one day's time. DISPOSITION: Stable upon discharge. DISCHARGE INSTRUCTIONS: 1. Location: Home and to dialysis center for dialysis. 2. Diet: Heart healthy and renal high-protein. 3. Activity: As tolerated. 4. Followup: Follow up with primary care in one day or as soon as possible and with Cardiology and primary care provider to help set up cardiology referral. Job ID: [id number] CRISTY
== END 2019-11-06 11:25 | disposition home or self-care (01) ==
LOC: ERS 10:30 → 2SW 12:51
PROVIDERS: ADMIT Student in an Organized Health Care Education/Training Program; ATTEND Student in an Organized Health Care Education/Training Program
DX: R00.2 Palpitations (principal); E11.22 Type 2 diabetes mellitus with diabetic chronic kidney disease; I12.0 Hypertensive chronic kidney disease with stage 5 chronic kidney disease or end stage renal disease; N18.6 End stage renal disease; K21.9 Gastro-esophageal reflux disease without esophagitis; E03.9 Hypothyroidism, unspecified; J45.909 Unspecified asthma, uncomplicated; D63.1 Anemia in chronic kidney disease; R74.8 Abnormal levels of other serum enzymes; Z79.82 Long term (current) use of aspirin; Z79.899 Other long term (current) drug therapy; Z99.2 Dependence on renal dialysis; Z79.4 Long term (current) use of insulin
CPT/HCPCS: 71045; 80048; 82550; 82553; 82962; 83690; 83735; 84100; 84484 ×2; 85025; 87086; 93005; 93306; 94640 ×2; 96374; 99285; G0378 ×3; 36415; 36416; 80053; 81003; 81015; 84443; J0360; J1815

== ENCOUNTER 2020-08-07 18:38 | Emergency (ER) | payer MEDICARE, BC, MEDICAID ==
[2020-08-07 21:27] LABS: #Eosinphils 0.1 thou/uL (0.0-0.7); #Monocytes 0.5 thou/uL (0.11-0.59); #Neutrophils 4.8 thou/uL (1.40-6.50); %Basophils 0.4 % (0.0-1.0); %Eosinophils 2.2 % (0.0-10.0); %Lymphocytes 15.9 % (21.0-51.0); %Monocytes 7.5 % (0.0-10.0); %Neutrophils 74.1 % (42.0-75.0); Hemoglobin 11.3 g/dL (12.0-16.0); Mean Corpuscular HGB CONC 33.8 g/dL (32.0-36.0); Mean Corpuscular Hemoglobin 30.4 pg (27.0-31.0); Mean Corpuscular Volume 90.1 fL (78.0-98.0); Mean Platelet Volume 7.4 fL (7.4-10.4); Platelet Count 227 thou/uL (130-400); RBC Distribution Width 14.9 % (11.5-14.5); Red Blood Cell (RBC) Count 3.72 mill/uL (4.20-5.40); White Blood Cell (WBC) Count 6.5 thou/uL (4.8-10.8)
--- NOTE | 2020-08-07 21:49 | RAD ---
XR Abdomen 1 View/KUB History: Abdominal pain Comparison: None. Findings: No dilated air-filled loops of large or small bowel. Extensive vascular calcifications. No acute osseous abnormality. No abnormal calcifications project over the renal shadows. Impression: No acute intra-abdominal abnormality.
[2020-08-07 22:04] LABS: ALT (SGPT) 10 U/L (8-55); AST (SGOT) 13 U/L (5-34); Alkaline Phosphatase 183 U/L (40-110); Anion Gap 16 mmol/L (10-20); BUN (Urea Nitrogen) 30 mg/dL (9.8-20.1); Bilirubin, Total 0.6 mg/dL (0.2-1.2); Calc. Creatinine Clearance 0 mL/min (70-130); Calcium 9.2 mg/dL (7.8-10.44); Carbon Dioxide 28 mmol/L (23-31); Chloride 97 mmol/L (98-107); Globulin 3.1 g/dL (2.4-3.5); Glucose 317 mg/dL (83-110); Lipase 42 U/L (8-78); Protein, Total 7.1 g/dL (6.0-8.3); Sodium 137 mmol/L (136-145)
== END 2020-08-07 22:20 | disposition home or self-care (01) ==
LOC: ERS 18:38
DX: K59.00 Constipation, unspecified (principal); E11.22 Type 2 diabetes mellitus with diabetic chronic kidney disease; I12.0 Hypertensive chronic kidney disease with stage 5 chronic kidney disease or end stage renal disease; N18.6 End stage renal disease; E03.9 Hypothyroidism, unspecified; J45.909 Unspecified asthma, uncomplicated; Z79.4 Long term (current) use of insulin; Z99.2 Dependence on renal dialysis; Z86.73 Personal history of transient ischemic attack (TIA), and cerebral infarction without residual deficits; Z79.82 Long term (current) use of aspirin; Z79.899 Other long term (current) drug therapy
CPT/HCPCS: 36415; 74018; 80053; 83690; 85025

== ENCOUNTER 2021-02-18 22:31 | Emergency (ER) | payer MEDICARE, BC, MEDICAID ==
[~2021-02-18 22:31] MED LIST: Iopamidol-370 76% 500 ML 1 ML ONE
[2021-02-18] MEDS ORDERED: Ondansetron PF 4 MG/2 ML Vial ONE (22:48)
[2021-02-18] MEDS ORDERED: Fentanyl 100 MCG/2 ML VIAL ONE (22:48)
[2021-02-18 23:20] LABS: #Basophils 0.1 thou/uL (0.0-0.2); #Eosinphils 0.1 thou/uL (0.0-0.7); #Lymphocytes 1.3 thou/uL (1.20-3.40); #Monocytes 1.2 thou/uL (0.11-0.59); #Neutrophils 11.8 thou/uL (1.40-6.50); %Basophils 0.5 % (0.0-1.0); %Eosinophils 0.5 % (0.0-10.0); %Lymphocytes 8.8 % (21.0-51.0); %Monocytes 8.1 % (0.0-10.0); Hemoglobin 12.7 g/dL (12.0-16.0); Mean Corpuscular HGB CONC 32.7 g/dL (32.0-36.0); Mean Corpuscular Hemoglobin 29.2 pg (27.0-31.0); Mean Corpuscular Volume 89.3 fL (78.0-98.0); Mean Platelet Volume 7.5 fL (7.4-10.4); Platelet Count 230 thou/uL (130-400); RBC Distribution Width 14.5 % (11.5-14.5); Red Blood Cell (RBC) Count 4.33 mill/uL (4.20-5.40); White Blood Cell (WBC) Count 14.4 thou/uL (4.8-10.8)
[2021-02-18 23:32] LABS: ALT (SGPT) 9 U/L (8-55); AST (SGOT) 17 U/L (5-34); Albumin 3.5 g/dL (3.4-4.8); Alkaline Phosphatase 84 U/L (40-110); Anion Gap 18 mmol/L (10-20); BUN (Urea Nitrogen) 41 mg/dL (9.8-20.1); Calc. Creatinine Clearance 0 mL/min (70-130); Carbon Dioxide 24 mmol/L (23-31); Chloride 99 mmol/L (98-107); Globulin 3.2 g/dL (2.4-3.5); Glucose 177 mg/dL (83-110); Lipase 18 U/L (8-78); Potassium 4.2 mmol/L (3.5-5.1); Protein, Total 6.7 g/dL (5.8-8.1); Sodium 137 mmol/L (136-145)
[2021-02-19 01:35] LABS: Bacteria/HPF 4+ HPF (None Seen); Bilirubin Negative (Negative); Blood, Urine Trace (Negative); Clarity Clear (Clear); Glucose, Urine (Dipstick) 70 mg/dL (Negative); Ketone, Urine Negative (Negative); Leukocyte Negative Leu/uL (Negative); Nitrite Negative (Negative); Protein, Urine (Dipstick) 200 mg/dL (Neg-Trace); RBC/HPF 0-3 HPF (0-3); Specific Gravity, Urine 1.017 (1.002-1.036); Urobilinogen Normal mg/dL (Less than 2); WBC/HPF 0-3 HPF (0-3)
== END 2021-02-19 02:40 | disposition home or self-care (01) ==
LOC: ERS 22:31
DX: N28.89 Other specified disorders of kidney and ureter (principal); K82.8 Other specified diseases of gallbladder; K63.89 Other specified diseases of intestine; E11.9 Type 2 diabetes mellitus without complications; E03.9 Hypothyroidism, unspecified; I10 Essential (primary) hypertension; Z79.899 Other long term (current) drug therapy; Z79.82 Long term (current) use of aspirin
CPT/HCPCS: 36415; 74177; 80053; 81003; 81015; 83605; 83690; 85025; 93005; 94760; 96374; 96375; J2405; J3010; Q9967

== ENCOUNTER 2021-02-19 20:20 | Inpatient (IN) | payer MEDICARE, BC, MEDICAID ==
[2021-02-19 20:56] LABS: #Basophils 0.1 thou/uL (0.0-0.2); #Eosinphils 0.2 thou/uL (0.0-0.7); #Monocytes 1.1 thou/uL (0.11-0.59); #Neutrophils 9.5 thou/uL (1.40-6.50); %Basophils 0.6 % (0.0-1.0); %Eosinophils 1.5 % (0.0-10.0); %Lymphocytes 8.1 % (21.0-51.0); %Monocytes 9.7 % (0.0-10.0); %Neutrophils 80.1 % (42.0-75.0); Hemoglobin 12.3 g/dL (12.0-16.0); Mean Corpuscular HGB CONC 32.3 g/dL (32.0-36.0); Mean Corpuscular Hemoglobin 28.8 pg (27.0-31.0); Mean Corpuscular Volume 88.9 fL (78.0-98.0); Mean Platelet Volume 7.4 fL (7.4-10.4); Platelet Count 227 thou/uL (130-400); RBC Distribution Width 14.4 % (11.5-14.5); Red Blood Cell (RBC) Count 4.26 mill/uL (4.20-5.40); White Blood Cell (WBC) Count 11.9 thou/uL (4.8-10.8)
[2021-02-19 21:16] LABS: ALT (SGPT) 11 U/L (8-55); AST (SGOT) 22 U/L (5-34); Albumin 3.7 g/dL (3.4-4.8); Alkaline Phosphatase 87 U/L (40-110); Anion Gap 16 mmol/L (10-20); BUN (Urea Nitrogen) 19 mg/dL (9.8-20.1); Bilirubin, Total 0.9 mg/dL (0.2-1.2); Calc. Creatinine Clearance 0 mL/min (70-130); Calcium 8.9 mg/dL (7.8-10.44); Carbon Dioxide 28 mmol/L (23-31); Chloride 100 mmol/L (98-107); Globulin 2.9 g/dL (2.4-3.5); Glucose 144 mg/dL (83-110); Potassium 3.8 mmol/L (3.5-5.1); Protein, Total 6.6 g/dL (5.8-8.1); Sodium 140 mmol/L (136-145)
[2021-02-19] MEDS ORDERED: Morphine 4 MG/ML VIAL ONE (23:10)
[2021-02-19] MEDS ORDERED: Acetaminophen 500 MG TAB ONE (23:11)
[2021-02-19] MEDS ORDERED: Ondansetron PF 4 MG/2 ML Vial ONE (23:11)
[2021-02-20 00:27] LABS: CKMB 2.3 ng/mL (0-6.6)
[2021-02-20] MEDS ORDERED: Cefepime 2 GM VIAL ONE (00:50)
[2021-02-20] MEDS ORDERED: Aspirin Chewable 81 MG TAB ONE (01:34)
[2021-02-20] MEDS ORDERED: Vancomycin 1 GM/200 ML BAG ONE (01:36)
[2021-02-20] MEDS ORDERED: Ondansetron ODT 4 MG TAB PO PRN (02:29)
[2021-02-20 02:49] LABS: Critical Call Chem Troponin I RESULT DECREASING
[2021-02-20] MEDS ORDERED: HOLD VANCOMYCIN FOR LEVEL >20 FS SCH (03:15)
[2021-02-20] MEDS ORDERED: Vancomycin 1 GM in Premix Bag 1 BAG IVPB SCH ×2 (03:15→09:00)
[2021-02-20] MEDS ORDERED: Vancomycin HCl 500 MG in Sodium Chloride 0.9% 100 ML IVPB SCH (03:15)
[2021-02-20] MEDS ORDERED: Vancomycin HCl 750 MG in Sodium Chloride 0.9% 250 ML 250 ML IVPB SCH (03:15)
[2021-02-20] MEDS ORDERED: VANCOMYCIN 1.25 GM/250 ML BAG 1.25 GM in Premix Bag 1 BAG IVPB SCH (03:15)
[2021-02-20 04:28] LABS: #Eosinphils 0.2 thou/uL (0.0-0.7); #Lymphocytes 1.5 thou/uL (1.20-3.40); #Monocytes 1.1 thou/uL (0.11-0.59); #Neutrophils 6.1 thou/uL (1.40-6.50); %Basophils 0.5 % (0.0-1.0); %Eosinophils 2.6 % (0.0-10.0); %Monocytes 12.2 % (0.0-10.0); %Neutrophils 67.7 % (42.0-75.0); Hemoglobin 10.1 g/dL (12.0-16.0); Mean Corpuscular HGB CONC 32.6 g/dL (32.0-36.0); Mean Corpuscular Volume 89.1 fL (78.0-98.0); Mean Platelet Volume 7.6 fL (7.4-10.4); Platelet Count 201 thou/uL (130-400); RBC Distribution Width 14.1 % (11.5-14.5); Red Blood Cell (RBC) Count 3.47 mill/uL (4.20-5.40)
[2021-02-20 04:42] LABS: Anion Gap 14 mmol/L (10-20); BUN (Urea Nitrogen) 22 mg/dL (9.8-20.1); Calc. Creatinine Clearance 0 mL/min (70-130); Calcium 8.4 mg/dL (7.8-10.44); Carbon Dioxide 28 mmol/L (23-31); Chloride 100 mmol/L (98-107); Glucose 111 mg/dL (83-110); Potassium 3.5 mmol/L (3.5-5.1); Sodium 138 mmol/L (136-145)
[2021-02-20 04:59] VITALS: BMI 30.2
[2021-02-20 05:15] LABS: Critical Call Chem Troponin I RESULT DECREASING; Troponin I 1.599 ng/mL (< 0.028)
[2021-02-20] MEDS ORDERED: Enoxaparin Sodium 30 MG/0.3 ML SYRINGE SC SCH (09:00)
[2021-02-20] MEDS ORDERED: Cefepime 1 GM in Sodium Chloride 0.9% 100 ML IVPB SCH (09:00)
[2021-02-20] MEDS: Heparin 5,000 UNITS/ML VIAL SC SCH ×3 (10:09→21:51)
[2021-02-20 13:13] LABS: SARS-CoV-2 PCR by NAA Not Detected (NotDetected)
[2021-02-20] MEDS ORDERED: hydrALAZINE 20 MG/ML VIAL ONE (13:58)
[2021-02-20] MEDS ORDERED: Ondansetron PF 4 MG/2 ML Vial ONE (13:58)
[2021-02-20] MEDS ORDERED: hydrALAZINE 20 MG/ML VIAL SLOW IVP SCH (15:15)
[2021-02-20] MEDS: Acetaminophen 325 MG TAB PO PRN (17:59)
[2021-02-20] MEDS: Mometasone 200 MCG/Formoterol 5 MCG 120 PUFF INHALER INH SCH (18:31)
[2021-02-20] MEDS: Carvedilol 6.25 MG TAB PO SCH (21:50)
[2021-02-20] MEDS: Atorvastatin Calcium 40 MG TAB PO SCH (21:51)
[2021-02-20 22:17] LABS: Bilirubin Negative (Negative); Blood, Urine Trace (Negative); Clarity Turbid (Clear); Glucose, Urine (Dipstick) 50 mg/dL (Negative); Ketone, Urine Negative (Negative); Leukocyte 75 Leu/uL (Negative); Nitrite Negative (Negative); Protein, Urine (Dipstick) 300 mg/dL (Neg-Trace); RBC/HPF 0-3 HPF (0-3); Renal Epithelial 0-3 HPF (None Seen); Specific Gravity, Urine 1.026 (1.002-1.036); Urobilinogen Normal mg/dL (Less than 2)
[2021-02-20 22:23] LABS: Bacteria/HPF 3+ HPF (None Seen)
[2021-02-21] MEDS: Cefepime 0.5 GM, Admixture Fee 1 EACH in Sodium Chloride 0.9% 100 ML IVPB SCH (00:57)
[2021-02-21 04:48] LABS: #Eosinphils 0.1 thou/uL (0.0-0.7); #Lymphocytes 1.5 thou/uL (1.20-3.40); #Monocytes 1.5 thou/uL (0.11-0.59); %Basophils 0.2 % (0.0-1.0); %Eosinophils 0.4 % (0.0-10.0); %Lymphocytes 9.5 % (21.0-51.0); %Monocytes 9.5 % (0.0-10.0); %Neutrophils 80.3 % (42.0-75.0); Hemoglobin 10.5 g/dL (12.0-16.0); Mean Corpuscular HGB CONC 32.2 g/dL (32.0-36.0); Mean Corpuscular Hemoglobin 28.6 pg (27.0-31.0); Mean Platelet Volume 7.6 fL (7.4-10.4); Platelet Count 234 thou/uL (130-400); Red Blood Cell (RBC) Count 3.67 mill/uL (4.20-5.40); White Blood Cell (WBC) Count 16.2 thou/uL (4.8-10.8)
[2021-02-21] MEDS: Acetaminophen 325 MG TAB PO PRN ×3 (04:59→23:23)
[2021-02-21 05:08] LABS: Anion Gap 15 mmol/L (10-20); BUN (Urea Nitrogen) 31 mg/dL (9.8-20.1); Calc. Creatinine Clearance 7 mL/min (70-130); Carbon Dioxide 26 mmol/L (23-31); Chloride 99 mmol/L (98-107); Glucose 104 mg/dL (83-110); Potassium 3.9 mmol/L (3.5-5.1); Sodium 136 mmol/L (136-145)
[2021-02-21] MEDS: Mometasone 200 MCG/Formoterol 5 MCG 120 PUFF INHALER INH SCH ×2 (06:51→18:37)
[2021-02-21] MEDS ORDERED: Dextrose 50% Abboject 50 ML SYRINGE SLOW IVP PRN (08:07)
[2021-02-21] MEDS ORDERED: Dextrose 5% in Water 1,000 ML IV PRN (08:07)
[2021-02-21] MEDS ORDERED: HumaLOG 300 UNITS/3 ML VIAL SC PRN (08:07)
[2021-02-21] MEDS ORDERED: Gabapentin 300 MG CAP PO PRN (08:08)
[2021-02-21 08:52] LABS: Hemoglobin A1c 6.8 % (4.0-6.0)
[2021-02-21] MEDS ORDERED: Losartan 25 MG TAB PO SCH (09:00)
[2021-02-21] MEDS: Minoxidil 2.5 MG TAB PO SCH (09:13)
[2021-02-21] MEDS: Carvedilol 6.25 MG TAB PO SCH ×2 (09:13→21:02)
[2021-02-21] MEDS: Folic Acid/Vit B Comp W-C PO SCH (09:13)
[2021-02-21] MEDS: Amlodipine 10 MG TAB PO SCH (09:13)
[2021-02-21] MEDS: Heparin 5,000 UNITS/ML VIAL SC SCH ×3 (09:14→21:01)
[2021-02-21] MEDS: Aspirin 325 MG TAB PO SCH (09:14)
[2021-02-21] MEDS: Lidocaine 5% Patch TD SCH (09:14)
[2021-02-21] MEDS ORDERED: Levothyroxine Sodium 100 MCG TAB PO SCH (09:30)
[2021-02-21] MEDS: Levothyroxine Sodium 100 MCG TAB PO SCH (09:53)
[2021-02-21] MEDS: Atorvastatin Calcium 40 MG TAB PO SCH (21:01)
[2021-02-21] MEDS: Lidocaine Patch Removal TOP SCH (21:02)
[2021-02-22] MEDS: Cefepime 0.5 GM, Admixture Fee 1 EACH in Sodium Chloride 0.9% 100 ML IVPB SCH (00:36)
[2021-02-22 04:30] LABS: Band 7 % (5-11); Hemoglobin 10.2 g/dL (12.0-16.0); Hypochromia SLIGHT = 6-15 cells (100X) (0-5/hpf); Lymphocytes 10 % (21-51); MDiff Complete? YES; Mean Corpuscular Hemoglobin 29.6 pg (27.0-31.0); Mean Corpuscular Volume 89.6 fL (78.0-98.0); Mean Platelet Volume 7.5 fL (7.4-10.4); Metamyelocyte 1 % (0-0); Monocytes 12 % (0-10); Neutrophil 70 % (42-75); Platelet Count 231 thou/uL (130-400); Platelet Morphology Comment Appears Adequate; Red Blood Cell (RBC) Count 3.45 mill/uL (4.20-5.40); White Blood Cell (WBC) Count 16.9 thou/uL (4.8-10.8)
[2021-02-22 04:33] LABS: Anion Gap 13 mmol/L (10-20); BUN (Urea Nitrogen) 12 mg/dL (9.8-20.1); Calc. Creatinine Clearance 12 mL/min (70-130); Calcium 8.3 mg/dL (7.8-10.44); Carbon Dioxide 30 mmol/L (23-31); Chloride 100 mmol/L (98-107); Glucose 93 mg/dL (83-110); Potassium 3.6 mmol/L (3.5-5.1); Sodium 139 mmol/L (136-145)
[2021-02-22] MEDS: Levothyroxine Sodium 100 MCG TAB PO SCH (06:07)
[2021-02-22] MEDS: Mometasone 200 MCG/Formoterol 5 MCG 120 PUFF INHALER INH SCH ×2 (06:28→18:23)
[2021-02-22] MEDS: Minoxidil 2.5 MG TAB PO SCH (09:39)
[2021-02-22] MEDS: Folic Acid/Vit B Comp W-C PO SCH (09:40)
[2021-02-22] MEDS: Amlodipine 10 MG TAB PO SCH (09:40)
[2021-02-22] MEDS: Aspirin 325 MG TAB PO SCH (09:40)
[2021-02-22] MEDS: Heparin 5,000 UNITS/ML VIAL SC SCH ×3 (09:40→20:53)
[2021-02-22] MEDS: Carvedilol 6.25 MG TAB PO SCH ×2 (09:40→20:53)
[2021-02-22] MEDS: Lidocaine 5% Patch TD SCH (09:42)
[2021-02-22 10:01] LABS: Hemoglobin 10.4 g/dL (12.0-16.0); Mean Corpuscular HGB CONC 31.6 g/dL (32.0-36.0); Mean Corpuscular Hemoglobin 28.5 pg (27.0-31.0); Mean Corpuscular Volume 90.3 fL (78.0-98.0); Mean Platelet Volume 7.5 fL (7.4-10.4); Platelet Count 261 thou/uL (130-400); RBC Distribution Width 14.2 % (11.5-14.5); Red Blood Cell (RBC) Count 3.65 mill/uL (4.20-5.40); White Blood Cell (WBC) Count 18.9 thou/uL (4.8-10.8)
[2021-02-22 11:52] LABS: Band 2 % (5-11); Eosinophils 1 % (0-10); Hypochromia SLIGHT = 6-15 cells (100X) (0-5/hpf); Lymphocytes 6 % (21-51); MDiff Complete? YES; Monocytes 8 % (0-10); Neutrophil 83 % (42-75); Platelet Morphology Comment Appears Adequate
[2021-02-22] MEDS: HumaLOG 300 UNITS/3 ML VIAL SC PRN (12:54)
[2021-02-22 16:15] LABS: HIV (1/2) Antibody/Antigen Non-Reactive (NonReactive); HIV 1/2 INDEX 0.09 S/CO (<1.00)
[2021-02-22] MEDS: Atorvastatin Calcium 40 MG TAB PO SCH (20:53)
[2021-02-22] MEDS: Lidocaine Patch Removal TOP SCH (20:54)
[2021-02-23] MEDS: Cefepime 0.5 GM, Admixture Fee 1 EACH in Sodium Chloride 0.9% 100 ML IVPB SCH (02:14)
[2021-02-23 05:06] LABS: #Basophils 0.1 thou/uL (0.0-0.2); #Eosinphils 0.4 thou/uL (0.0-0.7); #Lymphocytes 1.4 thou/uL (1.20-3.40); %Basophils 0.5 % (0.0-1.0); %Monocytes 8.2 % (0.0-10.0); %Neutrophils 76.3 % (42.0-75.0); Hemoglobin 9.5 g/dL (12.0-16.0); Mean Corpuscular HGB CONC 30.9 g/dL (32.0-36.0); Mean Corpuscular Hemoglobin 28.1 pg (27.0-31.0); Mean Platelet Volume 7.5 fL (7.4-10.4); Platelet Count 261 thou/uL (130-400); RBC Distribution Width 14.1 % (11.5-14.5); Red Blood Cell (RBC) Count 3.38 mill/uL (4.20-5.40); White Blood Cell (WBC) Count 11.8 thou/uL (4.8-10.8)
[2021-02-23 05:14] LABS: Anion Gap 13 mmol/L (10-20); BUN (Urea Nitrogen) 22 mg/dL (9.8-20.1); Calc. Creatinine Clearance 8 mL/min (70-130); Calcium 8.3 mg/dL (7.8-10.44); Carbon Dioxide 27 mmol/L (23-31); Cardiac Risk 2.8 (Less than 4.5); Chloride 98 mmol/L (98-107); Cholesterol 64 mg/dl (< 200 Desired); Glucose 103 mg/dL (83-110); HDL Cholesterol 23 mg/dL (>60 Neg Risk); LDL Cholesterol, Calculated 25 mg/dL; Potassium 3.5 mmol/L (3.5-5.1); Sodium 134 mmol/L (136-145); Triglycerides 81 mg/dL (Less than 150)
[2021-02-23] MEDS: Levothyroxine Sodium 100 MCG TAB PO SCH (05:50)
[2021-02-23] MEDS: Mometasone 200 MCG/Formoterol 5 MCG 120 PUFF INHALER INH SCH ×2 (06:53→19:15)
[2021-02-23] MEDS: Lidocaine 5% Patch TD SCH (08:13)
[2021-02-23] MEDS: Aspirin 325 MG TAB PO SCH (08:14)
[2021-02-23] MEDS: Heparin 5,000 UNITS/ML VIAL SC SCH ×3 (08:14→20:30)
[2021-02-23] MEDS: Amlodipine 10 MG TAB PO SCH (08:14)
[2021-02-23] MEDS: Losartan 25 MG TAB PO SCH (08:15)
[2021-02-23] MEDS: Folic Acid/Vit B Comp W-C PO SCH (08:15)
[2021-02-23] MEDS: Carvedilol 6.25 MG TAB PO SCH ×2 (08:15→20:30)
[2021-02-23] MEDS: Minoxidil 2.5 MG TAB PO SCH (08:15)
[2021-02-23] MEDS: HumaLOG 300 UNITS/3 ML VIAL SC PRN (16:44)
[2021-02-23] MEDS: Atorvastatin Calcium 40 MG TAB PO SCH (20:30)
[2021-02-23] MEDS: Lidocaine Patch Removal TOP SCH (20:35)
[2021-02-24] MEDS: Cefepime 0.5 GM, Admixture Fee 1 EACH in Sodium Chloride 0.9% 100 ML IVPB SCH (00:20)
[2021-02-24 04:30] LABS: #Eosinphils 0.4 thou/uL (0.0-0.7); #Lymphocytes 1.6 thou/uL (1.20-3.40); #Monocytes 1.2 thou/uL (0.11-0.59); #Neutrophils 6.3 thou/uL (1.40-6.50); %Eosinophils 4.7 % (0.0-10.0); %Lymphocytes 16.9 % (21.0-51.0); %Monocytes 12.1 % (0.0-10.0); %Neutrophils 66.3 % (42.0-75.0); Hemoglobin 10.4 g/dL (12.0-16.0); Mean Corpuscular HGB CONC 33.4 g/dL (32.0-36.0); Mean Corpuscular Volume 89.7 fL (78.0-98.0); Mean Platelet Volume 7.4 fL (7.4-10.4); Platelet Count 285 thou/uL (130-400); Red Blood Cell (RBC) Count 3.47 mill/uL (4.20-5.40); White Blood Cell (WBC) Count 9.5 thou/uL (4.8-10.8)
[2021-02-24 04:39] LABS: Anion Gap 15 mmol/L (10-20); BUN (Urea Nitrogen) 29 mg/dL (9.8-20.1); Calc. Creatinine Clearance 7 mL/min (70-130); Calcium 8.5 mg/dL (7.8-10.44); Carbon Dioxide 25 mmol/L (23-31); Chloride 96 mmol/L (98-107); Glucose 128 mg/dL (83-110); Potassium 3.5 mmol/L (3.5-5.1); Sodium 132 mmol/L (136-145)
[2021-02-24] MEDS: Levothyroxine Sodium 100 MCG TAB PO SCH (05:13)
[2021-02-24] MEDS: Mometasone 200 MCG/Formoterol 5 MCG 120 PUFF INHALER INH SCH ×2 (07:01→18:45)
[2021-02-24] MEDS: Folic Acid/Vit B Comp W-C PO SCH (08:46)
[2021-02-24] MEDS: Lidocaine 5% Patch TD SCH (08:46)
[2021-02-24] MEDS: Heparin 5,000 UNITS/ML VIAL SC SCH ×3 (08:46→20:59)
[2021-02-24] MEDS: Aspirin 325 MG TAB PO SCH (08:47)
[2021-02-24] MEDS: Carvedilol 6.25 MG TAB PO SCH ×2 (08:47→20:55)
[2021-02-24] MEDS: Amlodipine 10 MG TAB PO SCH (08:47)
[2021-02-24] MEDS: Minoxidil 2.5 MG TAB PO SCH (08:47)
[2021-02-24] MEDS: Losartan 25 MG TAB PO SCH (08:47)
[2021-02-24 09:52] LABS: Vancomycin, Random 10.8 ug/mL (See Comment)
[2021-02-24] MEDS: HumaLOG 300 UNITS/3 ML VIAL SC PRN (11:49)
[2021-02-24] MEDS ORDERED: Vancomycin HCl 750 MG in Sodium Chloride 0.9% 250 ML 250 ML IVPB SCH (12:00)
[2021-02-24] MEDS ORDERED: Amoxicillin/Potassium Clav 875 MG TAB PO SCH (15:00)
[2021-02-24] MEDS: Amoxicillin/Potassium Clav 875 MG TAB PO SCH (20:54)
[2021-02-24] MEDS: Atorvastatin Calcium 40 MG TAB PO SCH (20:54)
[2021-02-24] MEDS: Lidocaine Patch Removal TOP SCH (20:59)
[2021-02-25 04:55] LABS: #Eosinphils 0.3 thou/uL (0.0-0.7); #Lymphocytes 1.7 thou/uL (1.20-3.40); #Monocytes 0.9 thou/uL (0.11-0.59); #Neutrophils 5.9 thou/uL (1.40-6.50); %Basophils 0.5 % (0.0-1.0); %Eosinophils 3.7 % (0.0-10.0); %Lymphocytes 19.3 % (21.0-51.0); %Monocytes 9.8 % (0.0-10.0); %Neutrophils 66.6 % (42.0-75.0); Hemoglobin 9.7 g/dL (12.0-16.0); Mean Corpuscular HGB CONC 32.8 g/dL (32.0-36.0); Mean Corpuscular Hemoglobin 29.5 pg (27.0-31.0); Mean Corpuscular Volume 89.8 fL (78.0-98.0); Mean Platelet Volume 7.4 fL (7.4-10.4); Platelet Count 269 thou/uL (130-400); RBC Distribution Width 13.9 % (11.5-14.5); Red Blood Cell (RBC) Count 3.31 mill/uL (4.20-5.40); White Blood Cell (WBC) Count 8.8 thou/uL (4.8-10.8)
[2021-02-25 05:15] LABS: Anion Gap 17 mmol/L (10-20); BUN (Urea Nitrogen) 12 mg/dL (9.8-20.1); Calc. Creatinine Clearance 11 mL/min (70-130); Calcium 8.2 mg/dL (7.8-10.44); Carbon Dioxide 26 mmol/L (23-31); Chloride 98 mmol/L (98-107); Glucose 161 mg/dL (83-110); Potassium 3.5 mmol/L (3.5-5.1); Sodium 137 mmol/L (136-145)
[2021-02-25] MEDS: Levothyroxine Sodium 100 MCG TAB PO SCH (05:58)
[2021-02-25] MEDS: Mometasone 200 MCG/Formoterol 5 MCG 120 PUFF INHALER INH SCH ×2 (07:46→18:03)
[2021-02-25] MEDS: Aspirin 325 MG TAB PO SCH (08:23)
[2021-02-25] MEDS: Folic Acid/Vit B Comp W-C PO SCH (08:23)
[2021-02-25] MEDS: Amoxicillin/Potassium Clav 875 MG TAB PO SCH (08:23)
[2021-02-25] MEDS: Lidocaine 5% Patch TD SCH (08:23)
[2021-02-25] MEDS: Minoxidil 2.5 MG TAB PO SCH (08:24)
[2021-02-25] MEDS: Losartan 25 MG TAB PO SCH (08:24)
[2021-02-25] MEDS: Carvedilol 6.25 MG TAB PO SCH (08:24)
[2021-02-25] MEDS: Amlodipine 10 MG TAB PO SCH (08:24)
[2021-02-25] MEDS: Heparin 5,000 UNITS/ML VIAL SC SCH ×2 (08:25→15:39)
[2021-02-25 15:38] VITALS: BP 128/66; TEMP 98.5
[2021-02-27 16:10] LABS: QuantiFERON-TB Gold Plus Negative (Negative)
== END 2021-02-25 17:49 | disposition home or self-care (01) | DRG 444 ==
LOC: ERS 20:20 → ERHOLD 02-20 01:35 → OBSVTOIN 02-20 11:35 → 2NO 02-20 16:24
PROVIDERS: ADMIT Family Medicine; ATTEND Family Medicine
PROC: 5A1D70Z Performance of Urinary Filtration, Intermittent, Less than 6 Hours Per Day (ICD-10-PCS; principal; 2021-02-21)
DX: K80.00 Calculus of gallbladder with acute cholecystitis without obstruction (principal); N18.6 End stage renal disease; I12.0 Hypertensive chronic kidney disease with stage 5 chronic kidney disease or end stage renal disease; I69.954 Hemiplegia and hemiparesis following unspecified cerebrovascular disease affecting left non-dominant side; D72.829 Elevated white blood cell count, unspecified; E11.22 Type 2 diabetes mellitus with diabetic chronic kidney disease; D63.1 Anemia in chronic kidney disease; R77.8 Other specified abnormalities of plasma proteins; Z20.822 Contact with and (suspected) exposure to COVID-19; R40.4 Transient alteration of awareness; E03.9 Hypothyroidism, unspecified; K21.9 Gastro-esophageal reflux disease without esophagitis; N28.89 Other specified disorders of kidney and ureter; E11.51 Type 2 diabetes mellitus with diabetic peripheral angiopathy without gangrene; J44.9 Chronic obstructive pulmonary disease, unspecified; I35.0 Nonrheumatic aortic (valve) stenosis; Z79.82 Long term (current) use of aspirin; Z79.4 Long term (current) use of insulin; Z79.899 Other long term (current) drug therapy; Z99.2 Dependence on renal dialysis; Z79.890 Hormone replacement therapy; Z98.51 Tubal ligation status
CPT/HCPCS: 36415; 36416; 71045; 76705; 80048; 80053; 80061; 80202; 81003; 81015; 82553; 83036; 83605; 83690; 84145; 84484; 85025; 85060; 85652; 86140; 86480; 87040; 87086; 87389; 87804; 90935; 93005; 93306; 94640; 96365; 96375; G0257; G0378; J0360; J0692; J1644; J2270; J2405; J3370; J3490; J7050; J7620; Q0162; U0003; U0005

== ENCOUNTER 2021-04-21 16:31 | Outpatient (CLI) | payer MEDICARE, BC, MEDICAID ==
[2021-04-22 07:47] LABS: SARS-CoV-2 PCR by NAA Not Detected (NotDetected)
== END 2021-04-21 16:32 | disposition home or self-care (01) ==
LOC: LABBT 16:31
PROVIDERS: ATTEND Urology
DX: Z01.812 Encounter for preprocedural laboratory examination (principal); Z20.822 Contact with and (suspected) exposure to COVID-19
CPT/HCPCS: U0003; U0005

== ENCOUNTER 2021-04-24 08:57 | Day surgery (SDC) | payer MEDICARE, BC, MEDICAID ==
[2021-03-21 13:24] VITALS: BMI 27.6
[2021-04-24 09:27] LABS: #Basophils 0.1 thou/uL (0.0-0.2); #Eosinphils 0.2 thou/uL (0.0-0.7); #Lymphocytes 1.8 thou/uL (1.20-3.40); #Monocytes 0.7 thou/uL (0.11-0.59); #Neutrophils 4.4 thou/uL (1.40-6.50); %Eosinophils 2.2 % (0.0-10.0); %Lymphocytes 25.2 % (21.0-51.0); %Monocytes 9.2 % (0.0-10.0); %Neutrophils 62.3 % (42.0-75.0); Hemoglobin 10.3 g/dL (12.0-16.0); Mean Corpuscular HGB CONC 32.2 g/dL (32.0-36.0); Mean Corpuscular Hemoglobin 29.1 pg (27.0-31.0); Mean Corpuscular Volume 90.4 fL (78.0-98.0); Mean Platelet Volume 7.4 fL (7.4-10.4); Platelet Count 213 thou/uL (130-400); RBC Distribution Width 15.8 % (11.5-14.5); Red Blood Cell (RBC) Count 3.54 mill/uL (4.20-5.40); White Blood Cell (WBC) Count 7.1 thou/uL (4.8-10.8)
[2021-04-24 09:37] LABS: PTT 32.5 sec (22.9-36.1); Prothrombin Time 13.6 sec (12.0-14.7)
[2021-04-24 10:04] VITALS: BP 156/72; TEMP 98
== END 2021-04-24 14:23 | disposition home or self-care (01) ==
LOC: CT 08:57
PROVIDERS: ATTEND Urology
PROC: 0TB13ZX Excision of Left Kidney, Percutaneous Approach, Diagnostic (ICD-10-PCS; principal; 2021-04-24)
DX: C64.2 Malignant neoplasm of left kidney, except renal pelvis (principal); J44.9 Chronic obstructive pulmonary disease, unspecified; E03.9 Hypothyroidism, unspecified; K21.9 Gastro-esophageal reflux disease without esophagitis; E78.5 Hyperlipidemia, unspecified; I13.0 Hypertensive heart and chronic kidney disease with heart failure and stage 1 through stage 4 chronic kidney disease, or unspecified chronic kidney disease; E11.22 Type 2 diabetes mellitus with diabetic chronic kidney disease; N18.9 Chronic kidney disease, unspecified; I50.9 Heart failure, unspecified; D63.1 Anemia in chronic kidney disease; Z86.73 Personal history of transient ischemic attack (TIA), and cerebral infarction without residual deficits; Z79.02 Long term (current) use of antithrombotics/antiplatelets; Z79.4 Long term (current) use of insulin; Z79.82 Long term (current) use of aspirin; Z79.899 Other long term (current) drug therapy; Z99.2 Dependence on renal dialysis
CPT/HCPCS: 50200; 77002; 85025; 85610; 85730; 88305; 88333; 88341; 88342

== ENCOUNTER 2021-07-29 16:32 | Outpatient (CLI) | payer MEDICARE, BC, MEDICAID ==
[2021-07-29 17:20] LABS: #Basophils 0.1 10x3/uL (0.0-0.2); #Eosinphils 0.2 10x3/uL (0.0-0.5); #Monocytes 0.6 10x3/uL (0.0-1.1); #Neutrophils 4.2 10x3/uL (1.5-8.4); %Basophils 1.6 % (0.0-2.0); %Eosinophils 3.1 % (0.0-6.0); %Lymphocytes 22.9 % (18.0-47.0); %Monocytes 9.2 % (0.0-10.0); %Neutrophils 63.1 % (40.0-75.0); Hemoglobin 12.7 g/dL (12.0-15.5); Mean Corpuscular HGB CONC 31.6 g/dL (32.0-36.0); Mean Corpuscular Hemoglobin 27.6 pg (27.0-33.0); Mean Corpuscular Volume 87.4 fl (81.6-98.3); Mean Platelet Volume 9.3 fl (7.4-10.4); Platelet Count 187 10x3/uL (150-450); RBC Distribution Width 15.9 % (11.5-14.5); White Blood Cell (WBC) Count 6.7 10x3/uL (3.5-10.5)
[2021-07-29 17:29] LABS: Prothrombin Time 11.5 sec (9.5-12.1)
[2021-07-29 17:33] LABS: ALT (SGPT) 17 U/L (8-55); AST (SGOT) 21 U/L (5-34); Albumin 3.7 g/dL (3.4-4.8); Alkaline Phosphatase 161 U/L (40-110); Anion Gap 13 mmol/L (10-20); BUN (Urea Nitrogen) 26 mg/dL (9.8-20.1); Bilirubin, Total 0.8 mg/dL (0.2-1.2); Calc. Creatinine Clearance 0 mL/min (70-130); Calcium 9.1 mg/dL (7.8-10.44); Carbon Dioxide 32 mmol/L (23-31); Chloride 101 mmol/L (98-107); Globulin 2.4 g/dL (2.4-3.5); Glucose 272 mg/dL (83-110); Potassium 3.8 mmol/L (3.5-5.1); Protein, Total 6.1 g/dL (5.8-8.1); Sodium 142 mmol/L (136-145)
[2021-07-30 01:32] LABS: SARS-CoV-2 PCR by NAA Not Detected (NotDetected)
== END 2021-07-29 16:33 | disposition home or self-care (01) ==
LOC: LABBT 16:32
PROVIDERS: ATTEND Surgery
DX: Z01.818 Encounter for other preprocedural examination (principal); C64.2 Malignant neoplasm of left kidney, except renal pelvis; Z20.822 Contact with and (suspected) exposure to COVID-19
CPT/HCPCS: 71046; 80053; 85025; 85610; 85730; 86850; 86900; 86901; 86920; 93005; U0003; U0005; 93010

== ENCOUNTER 2021-07-31 07:00 | Day surgery (SDC) | payer MEDICARE, BC ==
[~2021-07-31 07:00] MED LIST changes: +Acetaminophen 500 MG TAB ONE; +Bupivacaine 0.25% HCL 30 ML VIAL ONE; +EPINEPHrine 1 MG/ML AMP ONE; -Iopamidol-370 76% 500 ML 1 ML ONE; +Iothalamate Meglumine 60% 50 ML VIAL FS ONE
== END 2021-07-31 08:29 | disposition home or self-care (01) ==
LOC: SDC/OP 07:00 → SURG A 07:05 → UNDODISIN 08:15 → SDC/OP 08:29 → EDSTATUS 16:30
PROVIDERS: ATTEND Surgery
DX: K80.20 Calculus of gallbladder without cholecystitis without obstruction (principal); C64.9 Malignant neoplasm of unspecified kidney, except renal pelvis; N28.89 Other specified disorders of kidney and ureter; I35.0 Nonrheumatic aortic (valve) stenosis; I13.2 Hypertensive heart and chronic kidney disease with heart failure and with stage 5 chronic kidney disease, or end stage renal disease; E11.22 Type 2 diabetes mellitus with diabetic chronic kidney disease; I50.30 Unspecified diastolic (congestive) heart failure; N18.6 End stage renal disease; D63.1 Anemia in chronic kidney disease; I69.354 Hemiplegia and hemiparesis following cerebral infarction affecting left non-dominant side; J45.909 Unspecified asthma, uncomplicated; E03.9 Hypothyroidism, unspecified; M81.0 Age-related osteoporosis without current pathological fracture; Z53.8 Procedure and treatment not carried out for other reasons; Z79.02 Long term (current) use of antithrombotics/antiplatelets; Z79.4 Long term (current) use of insulin; Z79.82 Long term (current) use of aspirin; Z79.899 Other long term (current) drug therapy; Z99.2 Dependence on renal dialysis
CPT/HCPCS: J0171; J0690; J1610; Q9961-U8; S0020

== ENCOUNTER 2022-01-14 22:57 | Emergency (ER) | payer BC, MEDICAID, MEDICARE ==
[2022-01-14] MEDS ORDERED: Morphine 2 MG/ML VIAL ONE (23:50)
== END 2022-01-15 00:40 | disposition home or self-care (01) ==
LOC: ERS 22:57
DX: S80.02XA Contusion of left knee, initial encounter (principal); E11.9 Type 2 diabetes mellitus without complications; I10 Essential (primary) hypertension; E03.9 Hypothyroidism, unspecified; K21.9 Gastro-esophageal reflux disease without esophagitis; J45.909 Unspecified asthma, uncomplicated; Z79.82 Long term (current) use of aspirin; Z79.890 Hormone replacement therapy; Z79.899 Other long term (current) drug therapy; Z86.73 Personal history of transient ischemic attack (TIA), and cerebral infarction without residual deficits; W19.XXXA Unspecified fall, initial encounter
CPT/HCPCS: 73564; 96372; 99283; J2270

== ENCOUNTER → 2022-02-06 | Day surgery (SDC) | payer MEDICARE, OTHER ==
[~2022-02-06] MED LIST changes: -Acetaminophen 500 MG TAB ONE; -Bupivacaine 0.25% HCL 30 ML VIAL ONE; -EPINEPHrine 1 MG/ML AMP ONE; +Heparin 1,000 UNITS/ML VIAL ONE; +Iopamidol 300 61% 100 ML VIAL FS ONE; -Iothalamate Meglumine 60% 50 ML VIAL FS ONE
[2022-02-06 10:08] VITALS: TEMP 97.8; BMI 25.5
[2022-02-06 11:23] VITALS: BP 147/69
== END | disposition home or self-care (01) ==
LOC: SPEC 07:50
PROVIDERS: ATTEND Specialist
PROC: 05763ZZ Dilation of Left Subclavian Vein, Percutaneous Approach (ICD-10-PCS; principal; 2022-02-06)
PROC: B51W1ZZ Fluoroscopy of Dialysis Shunt/Fistula using Low Osmolar Contrast (ICD-10-PCS; 2022-02-06)
DX: I87.8 Other specified disorders of veins (principal); I13.2 Hypertensive heart and chronic kidney disease with heart failure and with stage 5 chronic kidney disease, or end stage renal disease; E11.22 Type 2 diabetes mellitus with diabetic chronic kidney disease; N18.6 End stage renal disease; I50.30 Unspecified diastolic (congestive) heart failure; E03.9 Hypothyroidism, unspecified; K21.9 Gastro-esophageal reflux disease without esophagitis; E78.5 Hyperlipidemia, unspecified; J45.909 Unspecified asthma, uncomplicated; Z86.711 Personal history of pulmonary embolism; Z86.73 Personal history of transient ischemic attack (TIA), and cerebral infarction without residual deficits; Z79.02 Long term (current) use of antithrombotics/antiplatelets; Z79.4 Long term (current) use of insulin; Z79.82 Long term (current) use of aspirin; Z79.84 Long term (current) use of oral hypoglycemic drugs; Z79.890 Hormone replacement therapy; Z79.899 Other long term (current) drug therapy; Z95.5 Presence of coronary angioplasty implant and graft; Z99.2 Dependence on renal dialysis
CPT/HCPCS: 36902; C1725; C1887; 36901; J1644; Q9967

== ENCOUNTER 2022-07-27 10:25 | Outpatient (CLI) | payer MEDICARE, OTHER | END 2022-07-27 10:26 | disposition home or self-care (01) | LOC: BICRAD 10:25 | PROVIDERS: ATTEND Nurse Practitioner Family | DX: Z87.01 Personal history of pneumonia (recurrent) (principal) | CPT/HCPCS: 71046 ==